=== PATIENT | male | born 1930 | race Caucasian/White ===

== ENCOUNTER 2018-07-01 11:38 | Emergency (ER) | payer OTHER ==
[2018-07-01] MEDS ORDERED: CEPHALEXIN 250 MG CAP ONE (14:14)
[2018-07-01] MEDS ORDERED: SMZ./TMP. 800/160 MG TABLET ONE (14:14)
--- NOTE | 2018-07-01 15:30 | ER ---
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 Transition of care: patient was not received from another setting of care. Onset of symptoms was July 01, 2018. Risk Assessment: Do you want to hurt yourself or someone else? Patient reports no desire to harm self or others. Initial Sepsis Screen: Does the patient meet any 2 criteria? No. Patient's initial sepsis screen is negative. Does the patient have a suspected source of infection? Yes: Skin breakdown/wound. Care prior to arrival: None. 11:59 Method Of Arrival: Wheelchair sg 11:59 Acuity: YUMIKO 3 sg 12:00 Note has a history with for wound care in the past. sg Historical: - Allergies: 12:00 No Known Allergies; sg - PMHx: 11:51 adenocarcinoma of prostate; Alzheimers; Atrial Fib; Diabetes - NIDDM; diverticulosis; sg GERD; Hypercholesterolemia; Hypertension; Myocardial infarction; osteoarthritis; Pneumonia; - PSHx: 11:51 Pacemaker; Heart Bypass; sg - Immunization history:: Adult Immunizations up to date. - Social history:: Smoking status: Patient/guardian denies using tobacco. - Ebola Screening: : Patient negative for fever greater than or equal to 101.5 degrees Fahrenheit, and additional compatible Ebola Virus Disease symptoms Patient denies exposure to infectious person Patient denies travel to an Ebola-affected area in the 21 days before illness onset No symptoms or risks identified at this time. - Family history:: not pertinent. Screenin:00 Abuse screen: Denies threats or abuse. Denies injuries from another. Nutritional ca1 screening: No deficits noted. Tuberculosis screening: No symptoms or risk factors identified. Fall Risk Fall in past 12 months (25 points). Ambulatory Aid- Crutches/Cane/Walker (15 pts). Gait- Weak (10 pts.). Assessment: 13:00 General: Appears in no apparent distress. comfortable, Behavior is calm, cooperative, ca1 appropriate for age. Pain: Denies pain. Neuro: Level of Consciousness is awake, alert, obeys commands, Oriented to person, place, time, situation. Cardiovascular: Heart tones S1 S2 present Capillary refill < 3 seconds Patient's skin is warm and dry. Respiratory: Airway is patent Respiratory effort is even, unlabored, Respiratory pattern is regular, symmetrical, Breath sounds are clear bilaterally. GI: No deficits noted. No signs and/or symptoms were reported involving the gastrointestinal system. : No deficits noted. No signs and/or symptoms were reported regarding the genitourinary system. EENT: No deficits noted. No signs and/or symptoms were reported regarding the EENT system. Derm: Skin is intact, is healthy with good turgor, Skin is pink, warm \T\ dry. Decubitus located on left inner aspect of ankle. approximately 1.5 cm to 2.5 cm is stage II. Musculoskeletal: Circulation, motion, and sensation intact. Capillary refill < 3 seconds, Swelling present in left medial malleolus and left Achilles. 13:55 Reassessment: Patient appears in no apparent distress at this time. Patient and/or ca1 family updated on plan of care and expected duration. Pain level reassessed. Patient is alert, oriented x 3, equal unlabored respirations, skin warm/dry/pink. Pending wound consult. 14:50 Reassessment: Patient appears in no apparent distress at this time. Patient and/or ca1 family updated on plan of care and expected duration. Pain level reassessed. Patient is alert, oriented x 3, equal unlabored respirations, skin warm/dry/pink. 15:10 Reassessment: Wound care personnel at bedside. ca1 16:00 Reassessment: Patient appears in no apparent distress at this time. Patient and/or ca1 family updated on plan of care and expected duration. Pain level reassessed. Patient is alert, oriented x 3, equal unlabored respirations, skin warm/dry/pink. Applied medication to wound. Dressed wound. Pt tolerated procedure well. Vital Signs: 11:58 BP 116 / 68; Pulse 78; Resp 18; Temp 97.6; Pulse Ox 100% on R/A; Weight 88.45 kg; sg Height 6 ft. 0 in. (182.88 cm); Pain 0/10; 13:00 BP 127 / 67; Pulse 77; Resp 18; Pulse Ox 100% on R/A; ca1 13:55 BP 105 / 59; Pulse 81; Resp 19; Pulse Ox 98% on R/A; ca1 14:50 BP 99 / 58; Pulse 69; Resp 19; Pulse Ox 96% on R/A; ca1 16:00 BP 105 / 61; Pulse 71; Resp 19; Pulse Ox 100% on R/A; ca1 11:58 Body Mass Index 26.45 (88.45 kg, 182.88 cm) ED Course: 11:43 Patient arrived in ED. dp 11:43 Hector Bourne MD is Private Physician. dp 11:51 Arm band placed on. sg 12:00 Triage completed. sg 12:52 Stephanie Centeno, RN is Primary Nurse. ca1 13:00 Patient has correct armband on for positive identification. Bed in low position. Call ca1 light in reach. Side rails up X 1. Pulse ox on. NIBP on. Warm blanket given. 13:03 Neo Osei MD is Attending Physician. logan 15:29 Hector Bourne MD is Referral Physician. logan 15:29 Walt Lopez MD is Referral Physician. logan 15:50 Inserted saline lock: 22 gauge in left antecubital area, using aseptic technique. Blood ca1 collected. 16:17 Ankle Left 3 View XRAY In Process Unspecified. EDMS 16:18 No provider procedures requiring assistance completed. IV discontinued, intact, ca1 bleeding controlled, No redness/swelling at site. Pressure dressing applied. Administered Medications: 13:59 Drug: Bactrim (160 mg-800 mg (DS) 1 tablet Route: PO; ca1 16:17 Follow up: Response: No adverse reaction ca1 14:00 Drug: KeFLEX 500 mg Route: PO; ca1 16:17 Follow up: Response: No adverse reaction ca1 16:00 Drug: Santyl 250 unit/g 1 application Route: Topical; Site: wound; ca1 Outcome: 15:29 Discharge ordered by . logan 16:18 Discharged to home via wheelchair, with family. ca1 16:18 Condition: stable 16:18 Discharge instructions given to patient, family, Instructed on discharge instructions, follow up and referral plans. medication usage, wound care, Demonstrated understanding of instructions, follow-up care, medications, Prescriptions given X 3. 16:20 Patient left the ED. ca1 Signatures: Dispatcher [employer] EDMS Rajiv Dudley RN RN sg Neo Osei MD MD cha Acob, Cheryl, RN RN ca1 Pranav Wood Corrections: (The following items were deleted from the chart) 14:24 13:55 BP 125 / 64; Pulse 81bpm; Resp 19bpm; Pulse Ox 98% RA; ca1 ca1
--- NOTE | 2018-07-01 15:30 | EDPHYS ---
Physician Documentation [facility] Name: Cornelius Lazo Age: 88 yrs Sex: Male : 1930 Arrival Date: 07/01/2018 Time: 11:43 Bed 23 Private MD: Hector Bourne ED Physician Neo Osei HPI: 07/01 13:56 This 88 yrs old Male presents to ER via Wheelchair with complaints of Ulcer logan on ankle. 13:56 The patient presents with an abrasion, pain. The complaints affect the left ankle. logan Onset: The symptoms/episode began/occurred 2 day(s) ago. Context: The problem was sustained at home. Associated signs and symptoms: The patient has no apparent associated signs or symptoms. Modifying factors: The symptoms are alleviated by elevation of extremity, the symptoms are aggravated by movement, wearing shoes. The patient has not experienced similar symptoms in the past. Historical: - Allergies: 12:00 No Known Allergies; sg - PMHx: 11:51 adenocarcinoma of prostate; Alzheimers; Atrial Fib; Diabetes - NIDDM; diverticulosis; sg GERD; Hypercholesterolemia; Hypertension; Myocardial infarction; osteoarthritis; Pneumonia; - PSHx: 11:51 Pacemaker; Heart Bypass; sg - Immunization history:: Adult Immunizations up to date. - Social history:: Smoking status: Patient/guardian denies using tobacco. - Ebola Screening: : Patient negative for fever greater than or equal to 101.5 degrees Fahrenheit, and additional compatible Ebola Virus Disease symptoms Patient denies exposure to infectious person Patient denies travel to an Ebola-affected area in the 21 days before illness onset No symptoms or risks identified at this time. - Family history:: not pertinent. ROS: 13:56 Constitutional: Negative for fever, chills, and weight loss, Eyes: Negative for injury, logan pain, redness, and discharge, ENT: Negative for injury, pain, and discharge, Neck: Negative for injury, pain, and swelling, Cardiovascular: Negative for chest pain, palpitations, and edema, Respiratory: Negative for shortness of breath, cough, wheezing, and pleuritic chest pain, Abdomen/GI: Negative for abdominal pain, nausea, vomiting, diarrhea, and constipation, Back: Negative for injury and pain, : Negative for injury, bleeding, discharge, and swelling, Skin: Negative for injury, rash, and discoloration, Neuro: Negative for headache, weakness, numbness, tingling, and seizure, Psych: Negative for depression, anxiety, suicide ideation, homicidal ideation, and hallucinations, Allergy/Immunology: Negative for hives, rash, and allergies, Endocrine: Negative for neck swelling, polydipsia, polyuria, polyphagia, and marked weight changes, Hematologic/Lymphatic: Negative for swollen nodes, abnormal bleeding, and unusual bruising. 13:56 MS/extremity: Positive for pain, swelling, tenderness, of the left medial malleolus. Exam: 13:56 Constitutional: This is a well developed, well nourished patient who is awake, alert, logan and in no acute distress. Head/Face: Normocephalic, atraumatic. Eyes: Pupils equal round and reactive to light, extra-ocular motions intact. Lids and lashes normal. Conjunctiva and sclera are non-icteric and not injected. Cornea within normal limits. Periorbital areas with no swelling, redness, or edema. ENT: Nares patent. No nasal discharge, no septal abnormalities noted. Tympanic membranes are normal and external auditory canals are clear. Oropharynx with no redness, swelling, or masses, exudates, or evidence of obstruction, uvula midline. Mucous membranes moist. Neck: Trachea midline, no thyromegaly or masses palpated, and no cervical lymphadenopathy. Supple, full range of motion without nuchal rigidity, or vertebral point tenderness. No Meningismus. Chest/axilla: Normal chest wall appearance and motion. Nontender with no deformity. No lesions are appreciated. Cardiovascular: Regular rate and rhythm with a normal S1 and S2. No gallops, murmurs, or rubs. Normal PMI, no JVD. No pulse deficits. Respiratory: Lungs have equal breath sounds bilaterally, clear to auscultation and percussion. No rales, rhonchi or wheezes noted. No increased work of breathing, no retractions or nasal flaring. Abdomen/GI: Soft, non-tender, with normal bowel sounds. No distension or tympany. No guarding or rebound. No evidence of tenderness throughout. Back: No spinal tenderness. No costovertebral tenderness. Full range of motion. Male : Normal genitalia with no discharge or lesions. MS/ Extremity: Pulses equal, no cyanosis. Neurovascular intact. Full, normal range of motion. Neuro: Awake and alert, GCS 15, oriented to person, place, time, and situation. Cranial nerves II-XII grossly intact. Motor strength 5/5 in all extremities. Sensory grossly intact. Cerebellar exam normal. Normal gait. Psych: Awake, alert, with orientation to person, place and time. Behavior, mood, and affect are within normal limits. 13:56 Skin: cellulitis, that is mild, injury, abrasion(s), small abrasion noted. Vital Signs: 11:58 BP 116 / 68; Pulse 78; Resp 18; Temp 97.6; Pulse Ox 100% on R/A; Weight 88.45 kg; sg Height 6 ft. 0 in. (182.88 cm); Pain 0/10; 13:00 BP 127 / 67; Pulse 77; Resp 18; Pulse Ox 100% on R/A; ca1 13:55 BP 105 / 59; Pulse 81; Resp 19; Pulse Ox 98% on R/A; ca1 14:50 BP 99 / 58; Pulse 69; Resp 19; Pulse Ox 96% on R/A; ca1 16:00 BP 105 / 61; Pulse 71; Resp 19; Pulse Ox 100% on R/A; ca1 11:58 Body Mass Index 26.45 (88.45 kg, 182.88 cm) sg MDM: 13:03 Patient medically screened. [facility] 13:59 Data reviewed: vital signs, nurses notes, lab test result(s). [facility] 07/01 13:55 Order name: Glucose, Ancillary Testing [facility] 07/01 15:28 Order name: CBC with Diff [facility] 07/01 15:28 Order name: Comprehensive Metabolic Panel [facility] 07/01 15:28 Order name: Sed Rate [facility] 07/01 15:28 Order name: Ankle Left 3 View XRAY [facility] 07/01 13:55 Order name: Blood Glucose Level; Complete Time: 13:58 [facility] 07/01 13:55 Order name: Wound dressing: wound care to do; Complete Time: 16:17 [facility] 07/01 13:56 Order name: [facility] EDMS Administered Medications: 13:59 Drug: Bactrim (160 mg-800 mg (DS) 1 tablet Route: PO; ca1 16:17 Follow up: Response: No adverse reaction ca1 14:00 Drug: KeFLEX 500 mg Route: PO; ca1 16:17 Follow up: Response: No adverse reaction ca1 16:00 Drug: Santyl 250 unit/g 1 application Route: Topical; Site: wound; ca1 Disposition: 07/01/18 15:29 Discharged to Home. Impression: Non-pressure chronic ulcer of skin of other sites - left medial ankle, Type 2 diabetes mellitus. - Condition is Stable. - Discharge Instructions: Cellulitis, Adult, Type 2 Diabetes Mellitus, Diagnosis, Adult, Venous Ulcer, Cellulitis, Adult, [id number], Type 2 Diabetes Mellitus, Diagnosis, Adult, Muba-yo-Hdsj, Venous Ulcer, Flem-kf-Rqwf. - Prescriptions for Keflex 500 mg Oral Capsule - take 1 capsule by ORAL route every 6 hours for 10 days; 40 capsule. Bactrim DS 800- 160 mg Oral Tablet - take 1 tablet by ORAL route every 12 hours for 10 days; 20 tablet. Santyl 250 unit/gram Topical ointment - apply 1 application by TOPICAL route once daily; 90 gram. - Medication Reconciliation Form, Thank You Letter, Antibiotic Education, Prescription Opioid Use form. - Follow up: Hector Bourne; When: 2 - 3 days; Reason: Recheck today's complaints, Continuance of care, Re-evaluation by your physician. Follow up: Walt Lopez MD; When: 2 - 3 days; Reason: Recheck today's complaints, Continuance of care, Re-evaluation by your physician. - Problem is new. - Symptoms have improved. Signatures: Dispatcher [employer] EDRajiv Justice RN RN Neo Soto MD MD cha Acob, Cheryl, RN RN ca1 Corrections: (The following items were deleted from the chart) 15:29 15:29 07/01/2018 15:29 Discharged to Home. Impression: Non-pressure chronic ulcer of logan skin of other sites - left medial ankle; Type 2 diabetes mellitus. Condition is Stable. Discharge Instructions: Cellulitis, Adult, Type 2 Diabetes Mellitus, Diagnosis, Adult, Venous Ulcer, Cellulitis, Adult, Xsvb-[id number]-Mbzw, Type 2 Diabetes Mellitus, Diagnosis, Adult, Cdnk-kx-Xvge, Venous Ulcer, Znja-kw-Jxij. Prescriptions for Keflex 500 mg Oral Capsule - take 1 capsule by ORAL route every 6 hours for 10 days; 40 capsule, Bactrim DS 800-160 mg Oral Tablet - take 1 tablet by ORAL route every 12 hours for 10 days; 20 tablet. and Forms are Medication Reconciliation Form, Thank You Letter, Antibiotic Education, Prescription Opioid Use. Follow up: Hector Bourne; When: 2 - 3 days; Reason: Recheck today's complaints, Continuance of care, Re-evaluation by your physician. Problem is new. Symptoms have improved. [facility] 15:30 15:29 HEMOGLOBIN A1C+CHEM A1C.LAB.BRZ ordered. [facility] 16:20 15:29 07/01/2018 15:29 Discharged to Home. Impression: Non-pressure chronic ulcer of ca1 skin of other sites - left medial ankle; Type 2 diabetes mellitus. Condition is Stable. Discharge Instructions: Cellulitis, Adult, Type 2 Diabetes Mellitus, Diagnosis, Adult, Venous Ulcer, Cellulitis, Adult, Hycf-cd-Kzlw, Type 2 Diabetes Mellitus, Diagnosis, Adult, Yeav-pu-Ebpq, Venous Ulcer, Rjae-hm-Gvsf. Prescriptions for Keflex 500 mg Oral Capsule - take 1 capsule by ORAL route every 6 hours for 10 days; 40 capsule, Bactrim DS 800-160 mg Oral Tablet - take 1 tablet by ORAL route every 12 hours for 10 days; 20 tablet. and Forms are Medication Reconciliation Form, Thank You Letter, Antibiotic Education, Prescription Opioid Use. Follow up: Hector Bourne; When: 2 - 3 days; Reason: Recheck today's complaints, Continuance of care, Re-evaluation by your physician. Follow up: Walt Lopez; When: 2 - 3 days; Reason: Recheck today's complaints, Continuance of care, Re-evaluation by your physician. Problem is new. Symptoms have improved. [facility]
[2018-07-01] MEDS ORDERED: COLLAGENASE 30 GM OINTMENT TOP ONE (15:45)
[2018-07-01 16:05] LABS: Absolute Lymphocytes (CBC) 2.3 K/uL (0.7-4.9); Absolute Monocytes 0.7 K/uL (0.1-1.3); Absolute Neutrophil 5.7 K/uL (1.8-8.0); Basophils % 0.9 % (0-1.3); Eosinophils % 3.1 % (0-4.4); Hematocrit 38.9 % (39.6-49.0); Lymphocytes % 25.1 % (15.3-44.8); MPV 10.2 fL (7.6-11.3); Monocytes % 7.9 % (3.3-12.3); RBC Red Blood Cell Count 4.22 M/uL (4.33-5.43)
[2018-07-01 16:28] LABS: Albumin 3.5 g/dL (3.4-5.0); Bilirubin Total 0.2 mg/dL (0.2-1.0); Potassium 4.5 mmol/L (3.5-5.1)
--- NOTE | 2018-07-01 16:32 | RAD REPORT ---
EXAM DESCRIPTION: RAD - Ankle Left 3 View - 07/01/2018 4:17 pm CLINICAL HISTORY: Ankle wound, soft tissue swelling and redness COMPARISON: None. FINDINGS: Ankle joint prosthesis is present at the tibiotalar joint space. Bone screws are present i n the distal tibia and fibula from prior fracture repair. The bone screws have fractured. There is an overall osteopenic or bone loss change to the distal tibia. There is substantial thinning and very l ikely disruption of the posterior cortex of the distal tibia. A soft tissue mass density is evident p osterior to the distal tibia and tibia 0 talar joint space. Calcifications are present along the rim of this mass. Osteopenic or lucent changes are present in the anterior calcaneus. Talocalcaneal joint space is effaced and probably fused. No air or foreign body in the soft tissues. IMPRESSION: Bone loss changes in the distal tibia with soft tissue mass posterior margin of the tibi a and tibiotalar joint space. Fractured bone screws from remote tibiofibular repair. Tibiotalar joint prosthesis in place. Osteomyelitis is suspected. There are no comparison studies available to evaluate the extensive posts urgical and degenerative changes at the ankle joint.
[2018-07-01 17:29] VITALS: TEMP 97.6
[2018-07-01 17:40] VITALS: BP 105/61; O2SAT 100
== END 2018-07-01 16:20 | disposition home or self-care (01) ==
LOC: ER 11:38
DX: L97.328 Non-pressure chronic ulcer of left ankle with other specified severity (principal); E11.9 Type 2 diabetes mellitus without complications
CPT/HCPCS: 36415; 80053; 82962; 85025; 85652; 99284; J3590

== ENCOUNTER 2018-08-27 11:00 | Inpatient (IN) | payer OTHER ==
[2018-08-27] MEDS ORDERED: GLUCAGON 1 MG/VIAL IM PRN (11:16)
[2018-08-27] MEDS ORDERED: D50W 25 GM/50 ML SYRINGE IV PRN (11:16)
[2018-08-27 11:58] LABS: Absolute Lymphocytes (CBC) 1.6 K/uL (0.7-4.9); Absolute Monocytes 0.7 K/uL (0.1-1.3); Absolute Neutrophil 5.6 K/uL (1.8-8.0); Basophils % 0.6 % (0-1.3); Eosinophils % 3.1 % (0-4.4); Hematocrit 37.6 % (39.6-49.0); Lymphocytes % 19.7 % (15.3-44.8); MPV 10.8 fL (7.6-11.3); Monocytes % 8.7 % (3.3-12.3); RBC Red Blood Cell Count 4.03 M/uL (4.33-5.43)
[2018-08-27 12:17] LABS: Magnesium 2.3 mg/dL (1.8-2.4); Potassium 4.3 mmol/L (3.5-5.1)
[2018-08-27 12:24] VITALS: BMI 29.7
[2018-08-27] MEDS: INSULIN -REGULAR HUMAN 50 UNIT/0.5 ML ML SQ SCH ×3 (12:32→21:00)
[2018-08-27] MEDS: Meropenem 1,000 MG in NA CHLORIDE 0.9% 100 ML IV SCH ×2 (12:45→21:31)
[2018-08-27] MEDS ORDERED: TIZANIDINE 4 MG TABLET PO PRN (19:07)
[2018-08-27] MEDS ORDERED: LACTULOSE 20 GM/30 ML UCUP PO PRN (19:07)
[2018-08-27] MEDS ORDERED: guaiFENesin 100 MG/5 ML UCUP PO PRN (19:07)
[2018-08-27] MEDS ORDERED: NITROGLYCERIN 0.4 MG/TAB SL SCH (20:00)
[2018-08-27] MEDS ORDERED: Meropenem 1000 MG/VIAL IV SCH (21:00)
[2018-08-27] MEDS: HOME MED 1 EA UNK (Cyclosporine [Restasis] 1 GTT) EACH EYE SCH (21:00)
[2018-08-27] MEDS: BISACODYL E.C. 5 MG TAB PO SCH (21:30)
[2018-08-27] MEDS: ATORVASTATIN 40 MG TAB PO SCH (21:30)
[2018-08-27] MEDS: METOPROLOL TAR 25 MG TAB PO SCH (21:30)
[2018-08-27] MEDS: DOCUSATE NA/SENNA CONC 1 TAB PO SCH (21:30)
[2018-08-27] MEDS: RANITIDINE 150 MG TABLET PO SCH (21:30)
--- NOTE | 2018-08-28 05:02 | HP ---
Date of Admission: 08/27/2018 Chief Complaint: Urinary tract infection. History Of Present Illness: This is an 88-year-old male patient who had outpatient blood work and ur ine test done this week. Urine test was done 2 days ago and urinalysis was abnormal consistent with urinary tract infection and urine culture result came back today growing E. coli and it is ESBL. The patient's daughter was contacted with this information and the patient was advised to be admitted to the hospital. Arrangements were made for day after admission to the hospital and the patient was ad mitted for IV antibiotics. I saw him this evening. His and daughter were present in room with him. Denies any fever, chills, nausea, vomiting. He has frequent urination problem and has trouble controlling his bladder. No blood in the urine. Allergies: TO MORPHINE. Medications: List reviewed. Review of Systems: Genitourinary: As mentioned above. All other systems reviewed and negative. Past Medical History: Type 2 diabetes mellitus, uncontrolled; chronic kidney disease; chronic systol ic congestive heart failure; coronary artery disease; hypertension; hyperlipidemia; chronic anticoagu lation therapy; prostate cancer; paroxysmal atrial fibrillation; gastroesophageal reflux disease; Alz heimer disease; osteoarthritis at multiple sites. Past Surgical History: Pacemaker placement on November 29, 2015. In the past, he had coronary artery bypass surgery in 2001, penile implant in 1984 after a radical prostatectomy done in 1983, hernia rep air in 1975. Had surgery for left forearm fracture and surgery for left ankle fracture and right kaycee mb surgery. Family History: Significant for colon cancer, coronary artery disease. Social History: Negative for smoking and alcohol use. Physical Examination: Vital Signs: Temperature 97, pulse 69, respiratory rate 18, blood pressure 122/57, oxygen saturation 98%. Height 6 feet 3 inches, weight 238 pounds. General: Awake, alert, oriented, not in distress. HEENT: Head atraumatic, normocephalic. Conjunctivae nonerythematous. Sclerae white. Mouth, no thr ush or edema noted. Ears/Nose, no mass, lesion, discharge noted. Neck: Supple. No JVD, lymph nodes, bruit, thyromegaly noted. Lungs: Bilateral good equal air entry. Clear to auscultation. No rhonchi. No rales. Heart: Normal heart sounds, no murmur or gallop. Abdomen: Soft, bowel sounds normal. No guarding, rigidity, tenderness, mass, hepatosplenomegaly, dis tention, or bruit noted. Extremities: No leg edema. No calf tenderness. Skin: No rash, ulcer, cellulitis. Lymphatics: No lymph node enlargement in neck, supraclavicular, infraclavicular region. Neuro: No focal neurological deficit. Chest: Unremarkable. External Genitalia: Deferred. Rectal: Deferred. Laboratory Data: White count 8.2, hemoglobin 12.4, platelets 211. Sodium 137, potassium 4.3, chlori de 105, bicarb 29, BUN 28, creatinine 1.67, glucose 259. Procalcitonin less than 0.05. Urine cultur e growing E. coli ESBL and Enterococcus faecalis, this is from 08/25/2018 and urinalysis from the shows positive for nitrite, esterase 3+, wbc's TNTC, bacteria loaded. Impression: 1.Urinary tract infection, organism Escherichia coli, extended-spectrum beta-lactamase. 2.Coronary artery disease. 3.Chronic systolic congestive heart failure. 4.Diabetes mellitus. 5.Hypertension. 6.Hyperlipidemia. 7.Paroxysmal atrial fibrillation. 8.Chronic kidney disease, stage 3. 9.Alzheimer disease. 10.Osteoarthritis, multiple sites. 11.Prostate cancer. Plan: Admit the patient to hospital for further evaluation and management of this problem. The edd ent is appropriate for inpatient and is expected to spend 2 midnights in hospital. Home medications will be continued per order. We will order PICC line and IV antibiotic. Meropenem was started. Pha rmacy to make adjustment on dose depending on the patient's renal function. Social Service was consu lted to help make arrangements for patient to receive 10 days of IV meropenem upon discharge [facility]. Possible length of stay 4 days and details were discussed with the patient and the p rené's family member. I will see him tomorrow for followup. Physical Therapy to help ambulate the patient. SANTIAGO/MODL Voice ID: [id number]
[2018-08-28] MEDS: PANTOPRAZOLE 40MG TABLET PO SCH (05:52)
[2018-08-28] MEDS: BIFIDOBACTERIUM INFANTIS 4 MG PO SCH (07:07)
[2018-08-28] MEDS: HOME MED 1 EA UNK (Mirabegron [Myrbetriq] 25 MG) PO SCH (07:07)
[2018-08-28] MEDS: HOME MED 1 EA UNK (Cyclosporine [Restasis] 1 GTT) EACH EYE SCH ×2 (07:07→20:34)
[2018-08-28] MEDS: INSULIN -REGULAR HUMAN 50 UNIT/0.5 ML ML SQ SCH ×4 (07:30→20:32)
[2018-08-28] MEDS: GLIMEPIRIDE 2 MG TABLET PO SCH ×2 (08:27→17:54)
[2018-08-28] MEDS: Meropenem 1,000 MG in NA CHLORIDE 0.9% 100 ML IV SCH ×2 (08:27→20:32)
[2018-08-28] MEDS: POTASSIUM CL SA 10 MEQ TAB PO SCH (08:28)
[2018-08-28] MEDS: METOPROLOL TAR 25 MG TAB PO SCH ×2 (08:28→21:00)
[2018-08-28] MEDS: DOCUSATE NA/SENNA CONC 1 TAB PO SCH ×2 (08:28→20:33)
[2018-08-28] MEDS: BISACODYL E.C. 5 MG TAB PO SCH ×2 (08:28→20:33)
[2018-08-28] MEDS: SOLIFENACIN SUCCIN 5 MG TAB PO SCH (08:28)
[2018-08-28] MEDS: FUROSEMIDE 40 MG TABLET PO SCH (08:28)
[2018-08-28] MEDS: ASCORBIC ACID 500 MG TABLET PO SCH (08:28)
[2018-08-28] MEDS: LISINOPRIL 5 MG TAB PO SCH (08:29)
[2018-08-28] MEDS ORDERED: RIVAROXABAN 10 MG TABLET PO SCH (09:00)
[2018-08-28] MEDS: RIVASTIGMINE 9.5 MG/24 HR PATCH TD SCH (10:19)
[2018-08-28] MEDS: COLLAGENASE 30 GM OINTMENT TOP SCH (10:20)
--- NOTE | 2018-08-28 17:47 | PN ---
Date of Progress Note: 08/28/2018 Subjective: The patient was seen this morning for followup. No new complaints, problems reported by him. Objective: Vital Signs: Reviewed. HEENT: Unremarkable. Lungs: Clear to auscultation. Heart: Sounds normal. Abdomen: Soft. Bowel sounds normal. No guarding, rigidity, tenderness, distention. Extremities: No leg edema. Laboratory Data: Fingerstick blood sugar readings reviewed. Last blood glucose this morning was 185 . Impression: 1.Urinary tract infection, organism Escherichia coli, extended spectrum beta-lactamase. 2.Type 2 diabetes mellitus .. 3.Chronic kidney disease, stage 3. 4.Chronic systolic congestive heart failure. Plan: We will go ahead and restart his glimepiride but at a lower dose. He takes 2 mg twice a day i nstead of at 1 mg twice a day. Considering his renal function, we will not give any metformin at thi s point. Sliding-scale insulin will be continued. We will continue meropenem and hopefully patient will have a PICC line today once the PICC line nurse is available. SANTIAGO/MODL Voice ID: [id number] Report ID: [id number]
[2018-08-28] MEDS: RANITIDINE 150 MG TABLET PO SCH (20:33)
[2018-08-28] MEDS: ATORVASTATIN 40 MG TAB PO SCH (20:33)
[2018-08-29] MEDS: PANTOPRAZOLE 40MG TABLET PO SCH (05:44)
[2018-08-29 06:05] LABS: Absolute Lymphocytes (CBC) 1.8 K/uL (0.7-4.9); Absolute Monocytes 0.7 K/uL (0.1-1.3); Absolute Neutrophil 5.3 K/uL (1.8-8.0); Basophils % 0.4 % (0-1.3); Hematocrit 37.2 % (39.6-49.0); Lymphocytes % 22.6 % (15.3-44.8); MPV 10.9 fL (7.6-11.3); Monocytes % 8.7 % (3.3-12.3); RBC Red Blood Cell Count 4.04 M/uL (4.33-5.43)
[2018-08-29 06:08] LABS: Magnesium 2.2 mg/dL (1.8-2.4)
[2018-08-29] MEDS: INSULIN -REGULAR HUMAN 50 UNIT/0.5 ML ML SQ SCH ×4 (07:30→21:45)
[2018-08-29] MEDS: GLIMEPIRIDE 2 MG TABLET PO SCH ×2 (08:00→16:51)
[2018-08-29] MEDS: HOME MED 1 EA UNK (Cyclosporine [Restasis] 1 GTT) EACH EYE SCH ×2 (09:00→21:00)
[2018-08-29] MEDS: BIFIDOBACTERIUM INFANTIS 4 MG PO SCH (09:00)
[2018-08-29] MEDS: RIVASTIGMINE 9.5 MG/24 HR PATCH TD SCH (09:00)
[2018-08-29] MEDS: HOME MED 1 EA UNK (Mirabegron [Myrbetriq] 25 MG) PO SCH (09:00)
[2018-08-29] MEDS: Meropenem 1,000 MG in NA CHLORIDE 0.9% 100 ML IV SCH ×2 (09:38→21:00)
[2018-08-29] MEDS: COLLAGENASE 30 GM OINTMENT TOP SCH (09:38)
[2018-08-29] MEDS: FUROSEMIDE 40 MG TABLET PO SCH (09:39)
[2018-08-29] MEDS: NYSTATIN 100MU/GM CREAM 15GM TOP PRN (09:39)
[2018-08-29] MEDS: SOLIFENACIN SUCCIN 5 MG TAB PO SCH (09:40)
[2018-08-29] MEDS: METOPROLOL TAR 25 MG TAB PO SCH ×2 (09:40→21:43)
[2018-08-29] MEDS: POTASSIUM CL SA 10 MEQ TAB PO SCH (09:40)
[2018-08-29] MEDS: BISACODYL E.C. 5 MG TAB PO SCH ×2 (09:41→21:43)
[2018-08-29] MEDS: LISINOPRIL 5 MG TAB PO SCH (09:42)
[2018-08-29] MEDS: RIVAROXABAN 20 MG TABLET PO SCH (09:42)
[2018-08-29] MEDS: DOCUSATE NA/SENNA CONC 1 TAB PO SCH ×2 (09:42→21:42)
[2018-08-29] MEDS: ASCORBIC ACID 500 MG TABLET PO SCH (09:43)
--- NOTE | 2018-08-29 13:37 | PN ---
Date of Progress Note: 08/29/2018 Subjective: The patient was seen this morning for followup. His daughter was present with him at [facility]. He is ambulating well with physical therapy. No new complaints or problems reported. Objective: Vital Signs: Reviewed. HEENT: Examination unremarkable. Lungs: Clear to auscultation. No rhonchi. No rales. Heart: Sounds normal. Abdomen: Soft, bowel sounds normal. No guarding, rigidity, tenderness, or distention. Extremities: No leg edema. Left lower leg dressing present. No evidence of any blood stained disch arge on it. Laboratory Data: White count 8.1, hemoglobin 12.7, platelets 211. Sodium 141, potassium 4, chloride 107, bicarb 28, BUN 29, creatinine 1.35, and glucose 185. Urine culture is growing E. coli and Ente rococcus faecalis. Culture results collected on an outpatient basis 2 days prior to admission. Impression: 1.Urinary tract infection, Escherichia coli, extended-spectrum beta-lactamases and Enterococcus faec alberto. 2.Chronic systolic congestive heart failure. 3.Chronic kidney disease, stage III. 4.Diabetes mellitus. Plan: The patient's renal function is better. Upon further questioning today and talking to patient and his daughter, it appears that the patient only drinks about maybe 15-16 ounces of water a day an d I asked him to drink about 30 ounces of water a day. His renal function is better today. Fingerst ick blood sugar readings reviewed. We will go ahead and increase the dose of glimepiride from 1 mg t wice a day to 2 mg twice a day which is his home medication dose. Depending on his fingerstick blood sugar readings, we will decide if we need to restart metformin in a day or 2 days or not. Meanwhile , physical therapy to continue to work with the patient. Continue meropenem as ordered and add ampic illin 500 mg 3 times a day to cover second bacteria causing urinary tract infection. Social Service is trying to assist the patient to go to snf facility as the patient will not be able to return back to [facility] as they do not accept patient with IV antibiotics at that facility. SANTIAGO/MODL Voice ID: [id number] Report ID: [id number]
[2018-08-29] MEDS ORDERED: AMPICILLIN TRIHYDRATE 250 MG CAP PO SCH (14:00)
[2018-08-29] MEDS: AMPICILLIN TRIHYDRATE 500 MG CAP PO SCH ×2 (14:37→21:42)
[2018-08-29] MEDS: RANITIDINE 150 MG TABLET PO SCH (21:42)
[2018-08-29] MEDS: ATORVASTATIN 40 MG TAB PO SCH (21:44)
[2018-08-30] MEDS: PANTOPRAZOLE 40MG TABLET PO SCH (05:57)
[2018-08-30] MEDS: INSULIN -REGULAR HUMAN 50 UNIT/0.5 ML ML SQ SCH ×4 (07:30→20:42)
[2018-08-30] MEDS: HOME MED 1 EA UNK (Mirabegron [Myrbetriq] 25 MG) PO SCH (07:39)
[2018-08-30] MEDS: HOME MED 1 EA UNK (Cyclosporine [Restasis] 1 GTT) EACH EYE SCH ×2 (07:40→20:44)
[2018-08-30] MEDS: BIFIDOBACTERIUM INFANTIS 4 MG PO SCH (07:40)
[2018-08-30] MEDS: DOCUSATE NA/SENNA CONC 1 TAB PO SCH ×2 (09:23→20:43)
[2018-08-30] MEDS: GLIMEPIRIDE 2 MG TABLET PO SCH ×2 (09:24→17:19)
[2018-08-30] MEDS: SOLIFENACIN SUCCIN 5 MG TAB PO SCH (09:24)
[2018-08-30] MEDS: METOPROLOL TAR 25 MG TAB PO SCH ×2 (09:25→20:43)
[2018-08-30] MEDS: AMPICILLIN TRIHYDRATE 500 MG CAP PO SCH ×3 (09:26→20:43)
[2018-08-30] MEDS: RIVAROXABAN 20 MG TABLET PO SCH (09:26)
[2018-08-30] MEDS: POTASSIUM CL SA 10 MEQ TAB PO SCH (09:26)
[2018-08-30] MEDS: FUROSEMIDE 40 MG TABLET PO SCH (09:26)
[2018-08-30] MEDS: ASCORBIC ACID 500 MG TABLET PO SCH (09:27)
[2018-08-30] MEDS: LISINOPRIL 5 MG TAB PO SCH (09:27)
[2018-08-30] MEDS: Meropenem 1,000 MG in NA CHLORIDE 0.9% 100 ML IV SCH ×2 (09:28→20:42)
[2018-08-30] MEDS: BISACODYL E.C. 5 MG TAB PO SCH ×2 (09:28→20:43)
[2018-08-30] MEDS: RIVASTIGMINE 9.5 MG/24 HR PATCH TD SCH (09:29)
[2018-08-30] MEDS: COLLAGENASE 30 GM OINTMENT TOP SCH (09:30)
--- NOTE | 2018-08-30 13:50 | PN ---
Date of Progress Note: 08/30/2018 Subjective: The patient was seen this morning for followup. He was lying in bed. No new complaints or problems reported by him. No abdominal pain. No diarrhea. No shortness of breath. Objective: Vital Signs: Reviewed. HEENT: Examination unremarkable. Lungs: Clear to auscultation. Heart: Sounds normal. Abdomen: Soft. Bowel sounds normal. No guarding, rigidity, tenderness, or distention. Extremities: No leg edema. Impression: 1.Urinary tract infection, organism Escherichia coli, ESBL. 2.Chronic systolic congestive heart failure. 3.Type 2 diabetes mellitus. 4.Chronic kidney disease, stage 3. Plan: We will continue current medications, antibiotics per order. We will go ahead and repeat Flutter work tomorrow morning. The patient does have a PICC line in the right upper extremity and we will wait for the social service to rather make arrangements for detention facility placement. Once that is arranged, the patient will be discharged to go to such facility. SANTIAGO/MODL Voice ID: [id number] Report ID: [id number]
[2018-08-30] MEDS: RANITIDINE 150 MG TABLET PO SCH (20:43)
[2018-08-30] MEDS: ATORVASTATIN 40 MG TAB PO SCH (20:43)
[2018-08-31] MEDS: PANTOPRAZOLE 40MG TABLET PO SCH (06:01)
[2018-08-31] MEDS: INSULIN -REGULAR HUMAN 50 UNIT/0.5 ML ML SQ SCH ×4 (07:30→20:24)
[2018-08-31] MEDS: RIVASTIGMINE 9.5 MG/24 HR PATCH TD SCH (09:00)
[2018-08-31] MEDS: BIFIDOBACTERIUM INFANTIS 4 MG PO SCH (09:00)
[2018-08-31] MEDS: HOME MED 1 EA UNK (Cyclosporine [Restasis] 1 GTT) EACH EYE SCH ×2 (09:00→20:25)
[2018-08-31] MEDS: HOME MED 1 EA UNK (Mirabegron [Myrbetriq] 25 MG) PO SCH (09:00)
[2018-08-31] MEDS: COLLAGENASE 30 GM OINTMENT TOP SCH (09:00)
[2018-08-31] MEDS: AMPICILLIN TRIHYDRATE 500 MG CAP PO SCH ×3 (09:05→22:11)
[2018-08-31] MEDS: LISINOPRIL 5 MG TAB PO SCH (09:05)
[2018-08-31] MEDS: METOPROLOL TAR 25 MG TAB PO SCH ×2 (09:05→22:11)
[2018-08-31] MEDS: ASCORBIC ACID 500 MG TABLET PO SCH (09:05)
[2018-08-31] MEDS: RIVAROXABAN 20 MG TABLET PO SCH (09:06)
[2018-08-31] MEDS: DOCUSATE NA/SENNA CONC 1 TAB PO SCH ×2 (09:06→22:12)
[2018-08-31] MEDS: FUROSEMIDE 40 MG TABLET PO SCH (09:06)
[2018-08-31] MEDS: SOLIFENACIN SUCCIN 5 MG TAB PO SCH (09:06)
[2018-08-31] MEDS: POTASSIUM CL SA 10 MEQ TAB PO SCH (09:06)
[2018-08-31] MEDS: BISACODYL E.C. 5 MG TAB PO SCH ×2 (09:06→22:11)
[2018-08-31] MEDS: Meropenem 1,000 MG in NA CHLORIDE 0.9% 100 ML IV SCH ×2 (09:07→22:11)
[2018-08-31] MEDS: GLIMEPIRIDE 2 MG TABLET PO SCH ×2 (09:12→17:21)
--- NOTE | 2018-08-31 10:58 | RAD REPORT ---
EXAM DESCRIPTION: Chest Single View CLINICAL HISTORY: 88 years Male, S/P PICC insertion COMPARISON: None. FINDINGS: The heart is normal in size and shape. There is atherosclerosis of the thoracic aorta. Poststernotomy changes are identified. There is a single lead left-sided transvenous pacemaker. There is a right-sided PICC line identified with the distal tip in the superior vena cava. The lung contreras are clear of active infiltrates. The pulmonary vascularity is unremarkable. No active pleural disease is present. There is moderate elevation right hemidiaphragm. IMPRESSION: 1. Successful placement of right-sided PICC line. 2. No active infiltrates. 3. Atherosclerotic disease. Electronically signed by: Yousuf Amezcua MD 08/28/2018 10:48 PM CDT Due to temporary technical issues with the PACS/Fluency reporting system, reports are being signed by the in house radiologist as a courtesy to ensure prompt reporting. The interpreting radiologist is f ully responsible for the content of the report.
[2018-08-31] MEDS: ATORVASTATIN 40 MG TAB PO SCH (22:12)
[2018-08-31] MEDS: RANITIDINE 150 MG TABLET PO SCH (22:12)
--- NOTE | 2018-09-01 00:54 | PN ---
Date of Progress Note: 08/31/2018 Subjective: The patient was seen this morning for followup. He was lying in bed, not in distress. Objective: Vital Signs: Reviewed. HEENT: Unremarkable. Lungs: Clear to auscultation. Heart: Sounds normal. Abdomen: Soft. Bowel sounds normal. No guarding, rigidity, tenderness, distention. Extremities: No leg edema. Impression: 1.Urinary tract infection, organism E. coli, ESBL. 2.Chronic kidney disease, stage 3. 3.Diabetes mellitus. 4.Congestive heart failure, chronic, systolic. Plan: We will continue current medications. Continue current anticoagulation medication including X arelto. Continue current antibiotics. Social Service is arranging for the patient to go to custodial facility. Once arrangements completed, we will be able to discharge the patient to go to suc h facility. SANTIAGO/MODL Voice ID: [id number] Report ID: [id number]
[2018-09-01] MEDS: PANTOPRAZOLE 40MG TABLET PO SCH (05:52)
[2018-09-01 06:14] LABS: Absolute Lymphocytes (CBC) 1.6 K/uL (0.7-4.9); Absolute Monocytes 0.8 K/uL (0.1-1.3); Absolute Neutrophil 6.6 K/uL (1.8-8.0); Basophils % 0.6 % (0-1.3); Eosinophils % 2.6 % (0-4.4); Hematocrit 37.9 % (39.6-49.0); Lymphocytes % 17.2 % (15.3-44.8); MPV 10.4 fL (7.6-11.3); Monocytes % 9.1 % (3.3-12.3); RBC Red Blood Cell Count 4.07 M/uL (4.33-5.43)
[2018-09-01 06:27] LABS: Magnesium 2.4 mg/dL (1.8-2.4); Potassium 3.9 mmol/L (3.5-5.1)
[2018-09-01] MEDS: INSULIN -REGULAR HUMAN 50 UNIT/0.5 ML ML SQ SCH ×4 (07:30→20:39)
[2018-09-01] MEDS: HOME MED 1 EA UNK (Mirabegron [Myrbetriq] 25 MG) PO SCH (08:38)
[2018-09-01] MEDS: HOME MED 1 EA UNK (Cyclosporine [Restasis] 1 GTT) EACH EYE SCH ×2 (08:38→20:38)
[2018-09-01] MEDS: LISINOPRIL 5 MG TAB PO SCH (08:39)
[2018-09-01] MEDS: BIFIDOBACTERIUM INFANTIS 4 MG PO SCH (09:00)
[2018-09-01] MEDS ORDERED: POTASSIUM CL SA 10 MEQ TAB PO ONE (09:00)
[2018-09-01] MEDS: FUROSEMIDE 40 MG TABLET PO SCH (09:00)
[2018-09-01] MEDS: METOPROLOL TAR 25 MG TAB PO SCH ×2 (09:00→21:48)
[2018-09-01] MEDS: Meropenem 1,000 MG in NA CHLORIDE 0.9% 100 ML IV SCH ×2 (09:01→21:47)
[2018-09-01] MEDS: ASCORBIC ACID 500 MG TABLET PO SCH (09:01)
[2018-09-01] MEDS: DOCUSATE NA/SENNA CONC 1 TAB PO SCH ×2 (09:02→21:00)
[2018-09-01] MEDS: SOLIFENACIN SUCCIN 5 MG TAB PO SCH (09:02)
[2018-09-01] MEDS: BISACODYL E.C. 5 MG TAB PO SCH ×2 (09:02→21:48)
[2018-09-01] MEDS: GLIMEPIRIDE 2 MG TABLET PO SCH ×2 (09:02→16:05)
[2018-09-01] MEDS: AMPICILLIN TRIHYDRATE 500 MG CAP PO SCH ×3 (09:02→21:47)
[2018-09-01] MEDS: RIVASTIGMINE 9.5 MG/24 HR PATCH TD SCH (09:03)
[2018-09-01] MEDS: POTASSIUM CL SA 10 MEQ TAB PO SCH (09:04)
[2018-09-01] MEDS: COLLAGENASE 30 GM OINTMENT TOP SCH (09:05)
[2018-09-01] MEDS: RIVAROXABAN 20 MG TABLET PO SCH (09:06)
[2018-09-01] MEDS: NYSTATIN 100MU/GM CREAM 15GM TOP PRN (09:06)
[2018-09-01] MEDS: RANITIDINE 150 MG TABLET PO SCH (21:48)
[2018-09-01] MEDS: ATORVASTATIN 40 MG TAB PO SCH (21:57)
--- NOTE | 2018-09-01 23:46 | PN ---
Date of Progress Note: 09/01/2018 Subjective: The patient was seen this morning for followup. No new complaints, problems reported by the patient, lying in bed, not in distress. Objective: Vital Signs: Reviewed. HEENT: Unremarkable. Lungs: Clear to auscultation. Heart: Sounds normal. Abdomen: Soft. Bowel sounds normal. No guarding, rigidity, tenderness, distention. Extremities: No leg edema. Laboratory Data: White count 9.4, hemoglobin 12.5, platelets 195. Sodium 144, potassium 3.9, chlori de 111, bicarb 28, BUN 32, creatinine 1.41, glucose 161. Impression: 1.Urinary tract infection. 2.Diabetes mellitus. 3.Chronic kidney disease, stage 3. 4.Chronic systolic congestive heart failure. Plan: We will continue current medications, antibiotics per order. We are waiting for arrangements to be completed for the patient to go to shelter facility. Once that arrangement is complete d, the patient will be discharged to go to such facility. SANTIAGO/MODL Voice ID: [id number] Report ID: [id number]
[2018-09-02 04:33] LABS: Potassium 4.2 mmol/L (3.5-5.1)
[2018-09-02] MEDS: PANTOPRAZOLE 40MG TABLET PO SCH (05:51)
[2018-09-02] MEDS: INSULIN -REGULAR HUMAN 50 UNIT/0.5 ML ML SQ SCH ×4 (07:30→21:00)
[2018-09-02] MEDS: SOLIFENACIN SUCCIN 5 MG TAB PO SCH (08:39)
[2018-09-02] MEDS: AMPICILLIN TRIHYDRATE 500 MG CAP PO SCH ×3 (08:39→20:09)
[2018-09-02] MEDS: RIVAROXABAN 20 MG TABLET PO SCH (08:39)
[2018-09-02] MEDS: GLIMEPIRIDE 2 MG TABLET PO SCH ×2 (08:39→16:14)
[2018-09-02] MEDS: BISACODYL E.C. 5 MG TAB PO SCH ×2 (08:39→20:10)
[2018-09-02] MEDS: ASCORBIC ACID 500 MG TABLET PO SCH (08:39)
[2018-09-02] MEDS: POTASSIUM CL SA 10 MEQ TAB PO SCH (08:39)
[2018-09-02] MEDS: DOCUSATE NA/SENNA CONC 1 TAB PO SCH ×2 (08:39→20:10)
[2018-09-02] MEDS: Meropenem 1,000 MG in NA CHLORIDE 0.9% 100 ML IV SCH ×2 (08:40→20:09)
[2018-09-02] MEDS: RIVASTIGMINE 9.5 MG/24 HR PATCH TD SCH (08:41)
[2018-09-02] MEDS: METOPROLOL TAR 25 MG TAB PO SCH ×2 (08:41→20:10)
[2018-09-02] MEDS: HOME MED 1 EA UNK (Cyclosporine [Restasis] 1 GTT) EACH EYE SCH ×2 (08:44→21:00)
[2018-09-02] MEDS: FUROSEMIDE 40 MG TABLET PO SCH (08:44)
[2018-09-02] MEDS: BIFIDOBACTERIUM INFANTIS 4 MG PO SCH (08:44)
[2018-09-02] MEDS: LISINOPRIL 5 MG TAB PO SCH (08:45)
[2018-09-02] MEDS: COLLAGENASE 30 GM OINTMENT TOP SCH (09:00)
[2018-09-02] MEDS: HOME MED 1 EA UNK (Mirabegron [Myrbetriq] 25 MG) PO SCH (09:00)
[2018-09-02 09:11] VITALS: O2SAT 97
[2018-09-02] MEDS: ATORVASTATIN 40 MG TAB PO SCH (20:10)
[2018-09-02] MEDS: RANITIDINE 150 MG TABLET PO SCH (20:10)
--- NOTE | 2018-09-03 00:25 | PN ---
Date of Progress Note: 09/02/2018 Subjective: The patient was seen this morning for followup. He was lying in bed. Denied any compla ints. Not in any distress. Objective: Vital Signs: Reviewed. HEENT: Unremarkable. Lungs: Clear to auscultation. No rhonchi. No rales. Heart: Sounds normal. Abdomen: Soft. Bowel sounds normal. No guarding, rigidity, tenderness, distention. Extremities: No leg edema. Laboratory Data: Sodium 143, potassium 4.2, chloride 112, bicarb 27, BUN 38, creatinine 1.31, glucos e 155. Impression: 1.Urinary tract infection. 2.Chronic systolic congestive heart failure. 3.Coronary artery disease. 4.Diabetes mellitus. 5.Chronic kidney disease, stage 3. Plan: We will go ahead and continue current antibiotics. Continue physical therapy to help ambulate the patient. Discharge order was written today for patient to go to senior living facility as soc ial worker has been working on discharge planning to go to senior living facility, which is in [facility]. Social Service notified me today that the patient was approved and accepted to go to this [facility], but the patient's family does not want him to go there, and they are appealing the discharge or yaa. Subsequently, daughter came to my office to talk to me, and she informed me that she did go to senior living facility yesterday to sign some papers, and the room that they assigned for the patie nt did not have any window and was not cooler, and she did not feel comfortable her dad going into at room as she feels like emotionally it will be very difficult for him to be isolated in that room w ithout any daylight or windows. The patient lives at [facility], and they will not allow any IV antibi otics at that particular facility. Daughter is not able to handle these IV antibiotics at home. I d id inform daughter that we will try to see if insurance will allow him to go to [facility] or not, and we will have social media intern look into it, and I did communicate with charge nurse regarding this to see if social media intern can assist with diet if it is possible. Meanwhile, while in [facility], we will continue current antibiotic therapy. SANTIAGO/MODL Voice ID: [id number] Report ID: [id number]
[2018-09-03] MEDS: PANTOPRAZOLE 40MG TABLET PO SCH (06:31)
[2018-09-03] MEDS: INSULIN -REGULAR HUMAN 50 UNIT/0.5 ML ML SQ SCH ×4 (07:30→22:24)
[2018-09-03] MEDS: Meropenem 1,000 MG in NA CHLORIDE 0.9% 100 ML IV SCH ×2 (08:50→22:22)
[2018-09-03] MEDS: POTASSIUM CL SA 10 MEQ TAB PO SCH (08:51)
[2018-09-03] MEDS: ASCORBIC ACID 500 MG TABLET PO SCH (08:51)
[2018-09-03] MEDS: METOPROLOL TAR 25 MG TAB PO SCH ×2 (08:51→22:23)
[2018-09-03] MEDS: RIVAROXABAN 20 MG TABLET PO SCH (08:51)
[2018-09-03] MEDS: GLIMEPIRIDE 2 MG TABLET PO SCH ×2 (08:52→17:42)
[2018-09-03] MEDS: AMPICILLIN TRIHYDRATE 500 MG CAP PO SCH ×3 (08:52→22:22)
[2018-09-03] MEDS: FUROSEMIDE 40 MG TABLET PO SCH (08:52)
[2018-09-03] MEDS: LISINOPRIL 5 MG TAB PO SCH (08:52)
[2018-09-03] MEDS: RIVASTIGMINE 9.5 MG/24 HR PATCH TD SCH (08:53)
[2018-09-03] MEDS: HOME MED 1 EA UNK (Mirabegron [Myrbetriq] 25 MG) PO SCH (08:54)
[2018-09-03] MEDS: HOME MED 1 EA UNK (Cyclosporine [Restasis] 1 GTT) EACH EYE SCH ×2 (08:54→21:00)
[2018-09-03] MEDS: COLLAGENASE 30 GM OINTMENT TOP SCH (08:54)
[2018-09-03] MEDS: BIFIDOBACTERIUM INFANTIS 4 MG PO SCH (08:54)
[2018-09-03] MEDS: BISACODYL E.C. 5 MG TAB PO SCH ×2 (09:18→21:00)
[2018-09-03] MEDS: SOLIFENACIN SUCCIN 5 MG TAB PO SCH (09:18)
[2018-09-03] MEDS: DOCUSATE NA/SENNA CONC 1 TAB PO SCH ×2 (09:20→21:00)
[2018-09-03] MEDS: ATORVASTATIN 40 MG TAB PO SCH (22:23)
[2018-09-03] MEDS: RANITIDINE 150 MG TABLET PO SCH (22:23)
--- NOTE | 2018-09-04 01:54 | PN ---
Date of Progress Note: 09/03/2018 Subjective: The patient was seen this morning for followup. No new complaints, problems reported by patient. Objective: General: Lying in bed, not in any distress. Vital Signs: Reviewed. HEENT: Unremarkable. Lungs: Clear to auscultation. Heart: Sounds normal. Abdomen: Soft. Bowel sounds normal. No guarding, rigidity, tenderness, or distention. Extremities: No leg edema. Impression: 1.Urinary tract infection. 2.Chronic systolic congestive heart failure. 3.Chronic kidney disease, stage 3. 4.Type 2 diabetes mellitus. Plan: Continue current medication and antibiotics. Social Service is assisting the patient with dis charge planning. Once arrangement is completed, then we can plan to discharge patient. Meanwhile, juancarlos cummins current care. SANTIAGO/MODL Voice ID: [id number] Report ID: [id number]
[2018-09-04] MEDS: PANTOPRAZOLE 40MG TABLET PO SCH (06:29)
[2018-09-04 07:05] LABS: Absolute Lymphocytes (CBC) 1.2 K/uL (0.7-4.9); Absolute Monocytes 0.8 K/uL (0.1-1.3); Absolute Neutrophil 6.8 K/uL (1.8-8.0); Basophils % 0.4 % (0-1.3); Hematocrit 38.5 % (39.6-49.0); Lymphocytes % 13.4 % (15.3-44.8); MPV 10.6 fL (7.6-11.3); Monocytes % 8.7 % (3.3-12.3); RBC Red Blood Cell Count 4.16 M/uL (4.33-5.43)
[2018-09-04 07:18] LABS: Magnesium 2.3 mg/dL (1.8-2.4)
[2018-09-04] MEDS: INSULIN -REGULAR HUMAN 50 UNIT/0.5 ML ML SQ SCH (08:30)
[2018-09-04] MEDS: BISACODYL E.C. 5 MG TAB PO SCH (09:00)
[2018-09-04] MEDS: DOCUSATE NA/SENNA CONC 1 TAB PO SCH (09:00)
[2018-09-04] MEDS: HOME MED 1 EA UNK (Mirabegron [Myrbetriq] 25 MG) PO SCH (09:00)
[2018-09-04] MEDS: HOME MED 1 EA UNK (Cyclosporine [Restasis] 1 GTT) EACH EYE SCH (09:00)
[2018-09-04] MEDS: COLLAGENASE 30 GM OINTMENT TOP SCH (09:00)
[2018-09-04] MEDS: BIFIDOBACTERIUM INFANTIS 4 MG PO SCH (09:00)
[2018-09-04 09:16] VITALS: TEMP 96.9
[2018-09-04] MEDS: Meropenem 1,000 MG in NA CHLORIDE 0.9% 100 ML IV SCH (10:02)
[2018-09-04] MEDS: SOLIFENACIN SUCCIN 5 MG TAB PO SCH (10:02)
[2018-09-04] MEDS: FUROSEMIDE 40 MG TABLET PO SCH (10:02)
[2018-09-04] MEDS: METOPROLOL TAR 25 MG TAB PO SCH (10:03)
[2018-09-04] MEDS: GLIMEPIRIDE 2 MG TABLET PO SCH (10:03)
[2018-09-04] MEDS: LISINOPRIL 5 MG TAB PO SCH (10:03)
[2018-09-04] MEDS: POTASSIUM CL SA 10 MEQ TAB PO SCH (10:03)
[2018-09-04] MEDS: ASCORBIC ACID 500 MG TABLET PO SCH (10:03)
[2018-09-04] MEDS: RIVAROXABAN 20 MG TABLET PO SCH (10:04)
[2018-09-04] MEDS: RIVASTIGMINE 9.5 MG/24 HR PATCH TD SCH (10:04)
[2018-09-04] MEDS: AMPICILLIN TRIHYDRATE 500 MG CAP PO SCH (11:28)
[2018-09-04 12:06] VITALS: BP 135/70
--- NOTE | 2018-09-06 23:56 | DS ---
Date of Discharge: 09/04/2018 Disposition: Discharged to go to shelter facility. Physical Examination: HEENT: Unremarkable. Lungs: Clear to auscultation. Heart: Heart sounds normal. Abdomen: Soft. Bowel sounds normal. No guarding, rigidity, tenderness, distention. Extremities: No leg edema. Laboratory Data: Initial white count on 08/27/2018 was 8.2, hemoglobin 12.4, platelets 211. Last wh ite count on the day of discharge 9, hemoglobin 12.8, platelets 175. Last chemistry upon discharge o n the day of discharge; sodium 143, potassium 4, chloride 112, bicarb 26, BUN 33, creatinine 1.46, gl ucose 173. Upon admission, procalcitonin less than 0.05, BUN 28, creatinine 1.67. Urine culture gre w E. coli and it is ESBL and Enterococcus faecalis. Final Diagnoses: 1.Urinary tract infection, organism Escherichia coli, extended spectrum beta lactamase and Enterococ cus faecalis. 2.Coronary artery disease. 3.Chronic systolic congestive heart failure. 4.Chronic kidney disease stage 3. 5.Anemia in chronic kidney disease. 6.Type 2 diabetes mellitus. 7.Hypertension. 8.Hyperlipidemia. 9.Paroxysmal atrial fibrillation. 10.Alzheimer disease. 11.Osteoarthritis, multiple sites. 12.Prostate cancer. Hospital Course: An 88-year-old male patient living at [facility] was admitted to the hospital with urinary tract infection. Please see dictated H and P for more information. The patient's urine test done on outpatient basis 2 days prior to admission had shown abnormality consis tent with urinary tract infection and culture results grew E coli, which was ESBL and another bacteri a Enterococcus faecalis. The patient's daughter was contacted requesting admission to the hospital a nd after arrangements completed for direct admission, he was admitted to the hospital. IV meropenem and oral ampicillin were started. His home medications were continued. Diabetes was managed with sl iding scale insulin. Metformin was discontinued because of his renal function. His other medical pr oblems remained stable. He tolerated IV meropenem very well, it was 1000 mg every 12 hours. PICC li ne was placed and Social Service was consulted to help make arrangements for shelter facility placement. Physical Therapy was consulted for the patient to help ambulate the patient and he mitzi nued to ambulate well. After insurance approval was obtained by Social Service and arrangements comp leted for patient to go to the facility in [place] and on the day of discharge, the patient's daught er informs social service that she did not feel comfortable the patient going to that particular faci lity, so she did not feel the discharge and from insurance company, the final decision came back that the discharge was upheld and during that process, the patient's daughter wanted social service to tr y to see if the patient can go to another shelter facility of her choice, which was across e [address] from hospital [facility]. Unfortunately, by the time of discharge deadline, we did not hea r anything from insurance company, so patient's daughter decided to take the patient to [facility] a s a private pay instead of taking the patient to the facility in [place]. Discharge Medications And Instructions: 1.Continue all prior home medication except stop metformin and take new medications as below: a.Ampicillin 500 mg 3 times a day for 5 days. b.Meropenem 1000 mg IV piggyback every 12 hours for 5 days. c.Tradjenta 5 mg 1 tablet by mouth daily with breakfast for diabetes. 2.Consult Physical Therapy, Occupational Therapy. Fall precautions, flush PICC line per protocol, c hange PICC line dressing per protocol. 3.Follow up at my office in 1 week after [facility] jail. 4.Get repeat urinalysis and urine culture in 3-4 days after completing antibiotic therapy, and after results reviewed, decision to be made to remove PICC line. SANTIAGO/MODL Voice ID: [id number] Report ID: [id number]
== END 2018-09-04 12:31 | DRG 690 ==
LOC: 4TH 11:00
PROVIDERS: ADMIT Internal Medicine; ATTEND Internal Medicine
PROC: 02HV33Z Insertion of Infusion Device into Superior Vena Cava, Percutaneous Approach (ICD-10-PCS; principal; 2018-08-28)
DX: N39.0 Urinary tract infection, site not specified (principal); I13.0 Hypertensive heart and chronic kidney disease with heart failure and stage 1 through stage 4 chronic kidney disease, or unspecified chronic kidney disease; I50.22 Chronic systolic (congestive) heart failure; B96.20 Unspecified Escherichia coli [E. coli] as the cause of diseases classified elsewhere; Z16.12 Extended spectrum beta lactamase (ESBL) resistance; B95.2 Enterococcus as the cause of diseases classified elsewhere; I25.10 Atherosclerotic heart disease of native coronary artery without angina pectoris; E11.22 Type 2 diabetes mellitus with diabetic chronic kidney disease; N18.3 Chronic kidney disease, stage 3 (moderate); E78.5 Hyperlipidemia, unspecified; I48.0 Paroxysmal atrial fibrillation; G30.9 Alzheimer's disease, unspecified; F02.80 Dementia in other diseases classified elsewhere, unspecified severity, without behavioral disturbance, psychotic disturbance, mood disturbance, and anxiety; D63.1 Anemia in chronic kidney disease; M15.9 Polyosteoarthritis, unspecified; K21.9 Gastro-esophageal reflux disease without esophagitis; Z85.46 Personal history of malignant neoplasm of prostate; Z95.0 Presence of cardiac pacemaker; Z96.89 Presence of other specified functional implants; Z95.1 Presence of aortocoronary bypass graft; Z88.5 Allergy status to narcotic agent
CPT/HCPCS: 36415; 71045; 80048; 81001; 82962; 83735; 84145; 85025; 87077; 87086; 87088; 87186; 87493; 96365; 96367; 97116; 97163; 97530; J3590

== ENCOUNTER 2018-11-07 11:55 | Inpatient (IN) | payer OTHER ==
[2018-11-07 12:53] LABS: Absolute Lymphocytes (CBC) 0.4 K/uL (0.7-4.9); Basophils % 0.3 % (0-1.3); Hematocrit 35.2 % (39.6-49.0); Lymphocytes % 2.6 % (15.3-44.8); MPV 10.2 fL (7.6-11.3); RBC Red Blood Cell Count 3.88 M/uL (4.33-5.43)
[2018-11-07 12:57] LABS: Protime INR 1.81
[2018-11-07 13:12] LABS: ALT/SGPT 15 U/L (12-78); AST/SGOT 9 U/L (15-37); Albumin 3.3 g/dL (3.4-5.0); Alkaline Phosphatase 78 U/L (45-117); BUN Blood Urea Nitrogen 44 mg/dL (7-18); Bicarbonate 28 mmol/L (21-32); Bilirubin Direct 0.2 mg/dL (0-0.2); Bilirubin Total 0.5 mg/dL (0.2-1.0); CKMB Creatine Kinase MB < 1.0 ng/mL (0.3-3.6); Creatine Phosphokinase 50 U/L (39-308); Glucose Level 148 mg/dL (74-106); Lipase 144 U/L (73-393); Potassium 4.4 mmol/L (3.5-5.1); Sodium Level 142 mmol/L (136-145); Troponin (Emerg Dept Use Only) < 0.02 ng/mL (0.0-0.045)
[2018-11-07 13:21] LABS: Blood Morphology Comment NOT SEEN (NOT SEEN); Platelet Estimate ADEQ
--- NOTE | 2018-11-07 13:33 | RAD REPORT ---
EXAM DESCRIPTION: Brodie Single View11/07/2018 12:52 pm CLINICAL HISTORY: Fever COMPARISON: August 2018 FINDINGS: The lungs appear clear of acute infiltrate. The heart is mildly enlarged. Pacemaker leads are in place. IMPRESSION: No acute abnormalities displayed
[2018-11-07] MEDS ORDERED: ACETAMINOPHEN 650MG/RECT SUPP PR ONE (13:39)
[2018-11-07] MEDS ORDERED: LEVALBUTEROL 1.25 MG/3 ML NEB ONE (14:09)
[2018-11-07 14:13] LABS: Urine Blood NEGATIVE (NEG); Urine Glucose NEGATIVE (NEG); Urine Protein TRACE (NEG)
--- NOTE | 2018-11-07 14:25 | ER ---
Nurse's Notes [facility] Name: Cornelius Lazo Age: 88 yrs Sex: Male : 1930 Arrival Date: 11/07/2018 Time: 11:59 Bed 18 Private MD: Diagnosis: Sepsis, unspecified organism Presentation: 11/07 12:00 Presenting complaint: EMS states: called out to [facility] for febrile and hypotensive em pt 80/70's at facility, was AFIB on monitor, no hx of AFIB, EMS reports 103 ax temp, 88% SPO2 on RA. Transition of care: patient was not received from another setting of care. Onset of symptoms was November 07, 2018. Risk Assessment: Do you want to hurt yourself or someone else? Unable to obtain. Initial Sepsis Screen: Does the patient meet any 2 criteria? Temp <36.0*C (96.8*F)) or > 38.3*C (100.9*F). Altered Mental Status. HR > 90 bpm. Yes Does the patient have a suspected source of infection? Yes: Skin breakdown/wound. Care prior to arrival: None. 12:00 Method Of Arrival: EMS: [facility] em 12:02 Acuity: YUMIKO 2 hb Historical: - Allergies: 12:10 No Known Allergies; em - Home Meds: 12:18 furosemide 40 mg oral tab once daily [Active]; glimepiride 2 mg oral tab twice a day hb [Active]; lansoprazole 30 mg oral cpDR once daily [Active]; lisinopril 5 mg Oral tab 1 tab once daily [Active]; metformin 500 mg oral tr24 twice a day [Active]; metoprolol tartrate 25 mg Oral tab 1 tab 2 times per day [Active]; Myrbetriq 25 mg oral Tb24 1 tab once daily [Active]; ranitidine HCl 150 mg Oral tab nightly [Active]; Restasis 0.05 % ophthalmic dpet 1 drop to both eyes twice a day [Active]; rivastigmine 9.5 mg/24 hr transdermal pt24 once daily [Active]; simvastatin 80 mg Oral tab daily [Active]; Vesicare 5 mg Oral tab once daily [Active]; One Daily Vitamins [Active]; Vitamin D Oral 1,000 unit daily [Active]; Xarelto 20 mg Oral tab 1 tab once daily [Active]; Nitrostat 0.4 mg SL subl 1 tab every 5 minutes x 3 [Active]; - PMHx: 12:10 adenocarcinoma of prostate; Alzheimers; Atrial Fib; Diabetes - NIDDM; diverticulosis; em GERD; Hypercholesterolemia; Hypertension; Myocardial infarction; osteoarthritis; Pneumonia; - Immunization history:: Adult Immunizations unknown. - Social history:: Smoking status: unknown. - Ebola Screening: : Unable to complete screening because. Screenin:13 Abuse screen: no apparent signs noted. Nutritional screening: No deficits noted. em Tuberculosis screening: No symptoms or risk factors identified. Fall Risk IV access (20 points). Gait- Impaired (20 pts.). Mental Status- Overestimates/Forgets Limitations (15 pts.). Total Rosario Fall Scale indicates High Risk Score (45 or more points). Side Rails Up X 2 Placed Close to Nursing Station Frequent Obs/Assessments Occuring. Assessment: 12:09 Reassessment: CODE SEPSIS CALLED. hb 12:10 General: Appears ill, Behavior is disoriented . Reports fever for 12-24 hours. Pain: em Complains of pain in buttocks Unable to use pain scale. Patient is disoriented. Patient appears to be grimacing. Neuro: Level of Consciousness is awake, Oriented to none in bilateral hand(s) Pupils are PERRLA. Cardiovascular: Capillary refill < 3 seconds Patient's skin is warm and dry. pacemaker noted to upper left chest. Rhythm is atrial fibrillation. Respiratory: Airway is patent Respiratory effort is even, Respiratory pattern is tachypnea Breath sounds are diminished bilaterally. Derm: Skin is intact, is healthy with good turgor, Skin is pink, warm \T\ dry. Decubitus located on right sacrum heel(s) approximately 2.6 cm to 7.5 cm is stage II has erythematous edges. 12:25 Reassessment: I agree with the assessment made by Omi MEADE. sg 13:35 Reassessment: Patient appears in no apparent distress at this time. changed brief, em rotated pt to left hip, tolerated well. 14:17 Reassessment: Patient appears in no apparent distress at this time. no change in mental em status, respirations tachypneic, pending orders. 15:30 Reassessment: pending room assignment, no change in mental status, pt rotated to right em side, tolerated well. Vital Signs: 12:10 BP 137 / 90; Pulse 109; Resp 32; Temp 101.6(O); Pulse Ox 97% on R/A; Weight 102.06 kg em (R); 12:54 BP 119 / 85; Pulse 107; Resp 34; Pulse Ox 98% on R/A; em 14:12 BP 118 / 91; Pulse 108; Resp 30 S; Pulse Ox 100% on R/A; em 15:04 BP 135 / 71; Pulse 105; Resp 40; Temp 100.3(A); Pulse Ox 94% on R/A; 5 ED Course: 11:59 Patient arrived in ED. em 12:10 Arm band placed on. em 12:13 Patient has correct armband on for positive identification. Patient has correct armband em on for positive identification. Placed in gown. Bed in low position. Call light in reach. Side rails up X2. monitoring and evaluation advisor on. Pulse ox on. NIBP on. 12:13 Maintain EMS IV. Dressing intact. Good blood return noted. Site clean \T\ dry. Gauge \T\ em site: 20 LAC. 12:19 Triage completed. hb 12:24 Omi Parekh, COATING MACHINE OPERATOR is Primary Nurse. em 12:25 Yovana Blue, GRAIN MIXER is PHCP. nh 12:25 James Brown MD is Attending Physician. nh 12:40 Inserted saline lock: 20 gauge in right antecubital area, using aseptic technique. em Blood collected. 12:40 Initial lab(s) drawn, by me, sent to lab. First set of blood cultures drawn by me. em 12:52 Chest Single View XRAY In Process Unspecified. EDMS 13:49 Robertson cath inserted, using sterile technique, 12 Fr., by me, balloon inflated, urine em specimen collected. returned cloudy urine. Patient tolerated well. 14:24 Shankar Bingham MD is Hospitalizing Provider. az 15:07 Blood Culture Adult (2) Sent. 5 15:07 Urine Microscopic Only Sent. 5 15:07 Procalcitonin Sent. 5 15:07 Protime (+inr) Sent. 5 15:07 Ptt, Activated Sent. [facility] 15:07 Troponin (emerg Dept Use Only) Sent. [facility] 15:08 LFT's Sent. [facility] 15:41 No provider procedures requiring assistance completed. Patient admitted, IV remains in em place. Administered Medications: 12:40 Drug: NS 0.9% (30 ml/kg) 30 ml/kg Route: IV; Rate: bolus; Site: right antecubital; em 16:04 Follow up: IV Status: Completed infusion; IV Intake: 1000ml em 12:53 CANCELLED (Duplicate Order): NS 0.9% (30 ml/kg) 30 ml/kg IV at bolus once; Sepsis em Protocol 13:48 Drug: Tylenol Suppository 650 mg Route: SD; em 15:40 Follow up: Response: No adverse reaction; Temperature is decreased em 13:58 Drug: Xopenex 1.25 mg Route: Inhalation; em 14:24 Follow up: Response: No adverse reaction em 14:40 Drug: Rocephin 1 grams Route: IV; Rate: calculated rate; Site: right antecubital; hb 15:40 Follow up: Response: No adverse reaction; IV Status: Completed infusion; IV Intake: 10mlem 14:42 Not Given (Other Intervention Used): Rocephin - (cefTRIAXone) 1 grams IVPB once over 30 hb mins; (mix in 50 mL NS) Point of Care Testing: Blood Glucose: 12:10 Blood Glucose: 156 mg/dL; em Ranges: Intake: 15:40 IV: 10ml; Total: 10ml. em 16:04 IV: 1000ml; Total: 1010ml. em Outcome: 14:25 Decision to Hospitalize by Provider. az 16:04 Admitted to Tele accompanied by tech, family with patient, via wheelchair, room 205, em with oxygen, with chart, Report called to RC Whitlock 16:04 Condition: good 16:04 Instructed on the need for admit, Demonstrated understanding of instructions. 16:21 Patient left the ED. em Signatures: Dispatcher [employer] Rajiv Vargas, RN RN sg Yovana Blue, GRAIN MIXER GRAIN MIXER az Omi Parekh, COATING MACHINE OPERATOR COATING MACHINE OPERATOR em Radha Chen RN RN hb Martinez, Maria [facility] Corrections: (The following items were deleted from the chart) 12:21 12:13 Reassessment: CODE SEPSIS CALLED [facility] 12:48 12:10 BP 137 / 90; Pulse 109bpm; Resp 32bpm; Pulse Ox 97% RA; Temp 101.6F Oral; em em
--- NOTE | 2018-11-07 14:26 | EDPHYS ---
Physician Documentation [facility] Name: Cornelius Lazo Age: 88 yrs Sex: Male : 1930 Arrival Date: 11/07/2018 Time: 11:59 Bed 18 Private MD: ED Physician James Brown HPI: 11/07 14:19 This 88 yrs old Male presents to ER via EMS with complaints of Fever. nh 14:19 The patient reports fever, that was measured at 101 degrees Fahrenheit. Onset: The nh symptoms/episode began/occurred yesterday. Modifying factors: there are no obvious modifying factors. Associated signs and symptoms: Pertinent positives: altered mental status,\E\ Pertinent negatives:. Severity of symptoms: At their worst the symptoms were moderate just prior to arrival, in the emergency department the symptoms are unchanged. The patient has not experienced similar symptoms in the past. The patient has not recently seen a physician. Historical: - Allergies: 12:10 No Known Allergies; em - Home Meds: 12:18 furosemide 40 mg oral tab once daily [Active]; glimepiride 2 mg oral tab twice a day hb [Active]; lansoprazole 30 mg oral cpDR once daily [Active]; lisinopril 5 mg Oral tab 1 tab once daily [Active]; metformin 500 mg oral tr24 twice a day [Active]; metoprolol tartrate 25 mg Oral tab 1 tab 2 times per day [Active]; Myrbetriq 25 mg oral Tb24 1 tab once daily [Active]; ranitidine HCl 150 mg Oral tab nightly [Active]; Restasis 0.05 % ophthalmic dpet 1 drop to both eyes twice a day [Active]; rivastigmine 9.5 mg/24 hr transdermal pt24 once daily [Active]; simvastatin 80 mg Oral tab daily [Active]; Vesicare 5 mg Oral tab once daily [Active]; One Daily Vitamins [Active]; Vitamin D Oral 1,000 unit daily [Active]; Xarelto 20 mg Oral tab 1 tab once daily [Active]; Nitrostat 0.4 mg SL subl 1 tab every 5 minutes x 3 [Active]; - PMHx: 12:10 adenocarcinoma of prostate; Alzheimers; Atrial Fib; Diabetes - NIDDM; diverticulosis; em GERD; Hypercholesterolemia; Hypertension; Myocardial infarction; osteoarthritis; Pneumonia; - Immunization history:: Adult Immunizations unknown. - Social history:: Smoking status: unknown. - Ebola Screening: : Unable to complete screening because. ROS: 14:19 Eyes: Negative for injury, pain, redness, and discharge, ENT: Negative for injury, nh pain, and discharge, Neck: Negative for injury, pain, and swelling, Cardiovascular: Negative for chest pain, palpitations, and edema, Respiratory: Negative for shortness of breath, cough, wheezing, and pleuritic chest pain, Abdomen/GI: Negative for abdominal pain, nausea, vomiting, diarrhea, and constipation, Back: Negative for injury and pain, : Negative for injury, bleeding, discharge, and swelling, MS/Extremity: Negative for injury and deformity, Skin: Negative for injury, rash, and discoloration, Psych: Negative for depression, anxiety, suicide ideation, homicidal ideation, and hallucinations, Allergy/Immunology: Negative for hives, rash, and allergies, Endocrine: Negative for neck swelling, polydipsia, polyuria, polyphagia, and marked weight changes. 14:19 Constitutional: Positive for body aches, fever. 14:19 Neuro: Positive for altered mental status. Exam: 14:19 Constitutional: This is a well developed, well nourished patient who is awake, alert, nh and in no acute distress. Head/Face: Normocephalic, atraumatic. Eyes: Pupils equal round and reactive to light, extra-ocular motions intact. Lids and lashes normal. Conjunctiva and sclera are non-icteric and not injected. Cornea within normal limits. Periorbital areas with no swelling, redness, or edema. ENT: Nares patent. No nasal discharge, no septal abnormalities noted. Tympanic membranes are normal and external auditory canals are clear. Oropharynx with no redness, swelling, or masses, exudates, or evidence of obstruction, uvula midline. Mucous membranes moist. Neck: Trachea midline, no thyromegaly or masses palpated, and no cervical lymphadenopathy. Supple, full range of motion without nuchal rigidity, or vertebral point tenderness. No Meningismus. Chest/axilla: Normal chest wall appearance and motion. Nontender with no deformity. No lesions are appreciated. Cardiovascular: Regular rate and rhythm with a normal S1 and S2. No gallops, murmurs, or rubs. Normal PMI, no JVD. No pulse deficits. Respiratory: Lungs have equal breath sounds bilaterally, clear to auscultation and percussion. No rales, rhonchi or wheezes noted. No increased work of breathing, no retractions or nasal flaring. Abdomen/GI: Soft, non-tender, with normal bowel sounds. No distension or tympany. No guarding or rebound. No evidence of tenderness throughout. Back: No spinal tenderness. No costovertebral tenderness. Full range of motion. Skin: Warm, dry with normal turgor. Normal color with no rashes, no lesions, and no evidence of cellulitis. 14:19 Neuro: Orientation: Not oriented to place, time, Mentation: is normal. Vital Signs: 12:10 BP 137 / 90; Pulse 109; Resp 32; Temp 101.6(O); Pulse Ox 97% on R/A; Weight 102.06 kg em (R); 12:54 BP 119 / 85; Pulse 107; Resp 34; Pulse Ox 98% on R/A; em 14:12 BP 118 / 91; Pulse 108; Resp 30 S; Pulse Ox 100% on R/A; em 15:04 BP 135 / 71; Pulse 105; Resp 40; Temp 100.3(A); Pulse Ox 94% on R/A; mh5 MDM: 12:25 Patient medically screened. tn 14:19 Data reviewed: vital signs, nurses notes, lab test result(s), radiologic studies, I nh have discussed the patient's presentation/case with the attending Emergency Department Physician; and as a result, I will admit patient. Counseling: I had a detailed discussion with the patient and/or guardian regarding: the historical points, exam findings, and any diagnostic results supporting the discharge/admit diagnosis, lab results, radiology results, the need for further work-up and treatment in the hospital, to return to the emergency department if symptoms worsen or persist or if there are any questions or concerns that arise at home. Physician consultation: Shankar Bingham MD was called at 14:23, was contacted at 14:23, regarding admission, to the medical/surgical unit. and will see patient in inpatient room. 11/07 12: Order name: Basic Metabolic Panel em 11/07 12:26 Order name: Blood Culture Adult (2) em 11/07 12:26 Order name: CBC with Diff em 11/07 12:26 Order name: Ckmb em 11/07 12:26 Order name: CPK 11/07 12:26 Order name: Lactate em 11/07 12:26 Order name: LFT's 11/07 12:26 Order name: Lipase; Complete Time: 13:22 em 11/07 12:26 Order name: Procalcitonin; Complete Time: 13:33 em 11/07 12:26 Order name: Protime (+inr); Complete Time: 13:22 em 11/07 12:26 Order name: Ptt, Activated; Complete Time: 13:22 em 11/07 12:26 Order name: Troponin (emerg Dept Use Only); Complete Time: 13:22 em 11/07 12:26 Order name: Urine Microscopic Only 11/07 12:26 Order name: Blood Culture Adult (2) tn 11/07 12:26 Order name: Procalcitonin tn 11/07 12:26 Order name: Protime (+inr) tn 11/07 12:26 Order name: Ptt, Activated tn 11/07 12:26 Order name: Troponin (emerg Dept Use Only) tn 11/07 12:26 Order name: Urine Microscopic Only tn 11/07 12:26 Order name: Basic Metabolic Panel; Complete Time: 13:22 EDPA 11/07 12:26 Order name: Blood Culture [facility] 11/07 12:27 Order name: CBC with Automated Diff; Complete Time: 13:22 EDPA 11/07 12:27 Order name: CKMB Creatine Kinase MB; Complete Time: 13:22 EDPA 11/07 12:26 Order name: Chest Single View XRAY; Complete Time: 13:50 em 11/07 12:26 Order name: Accucheck; Complete Time: 12:50 em 11/07 12:26 Order name: Cardiac monitoring; Complete Time: 12:50 em 11/07 12:26 Order name: EKG - Nurse/Tech; Complete Time: 12:50 em 11/07 12:26 Order name: IV Saline Lock - Large Bore; Complete Time: 12:50 em 11/07 12:26 Order name: Labs collected and sent; Complete Time: 12:50 em 11/07 12:26 Order name: O2 Per Protocol; Complete Time: 12:50 11/07 12:26 Order name: O2 Sat Monitoring; Complete Time: 12:50 em 11/07 12:26 Order name: Urine Dipstick-Ancillary (obtain specimen); Complete Time: 13:49 em 11/07 12:27 Order name: Creatine Phosphokinase; Complete Time: 13:22 EDMS 11/07 12:28 Order name: Lactate; Complete Time: 13:50 EDMS 11/07 12:28 Order name: Liver (Hepatic) Function; Complete Time: 13:22 EDMS 11/07 13:21 Order name: Manual Differential; Complete Time: 13:22 EDMS 11/07 14:08 Order name: Urine Dipstick--Ancillary (enter results) ms 11/07 16:10 Order name: Glucose, Ancillary Testing EDMS Administered Medications: 12:40 Drug: NS 0.9% (30 ml/kg) 30 ml/kg Route: IV; Rate: bolus; Site: right antecubital; em 16:04 Follow up: IV Status: Completed infusion; IV Intake: 1000ml em 12:53 CANCELLED (Duplicate Order): NS 0.9% (30 ml/kg) 30 ml/kg IV at bolus once; Sepsis em Protocol 13:48 Drug: Tylenol Suppository 650 mg Route: CO; em 15:40 Follow up: Response: No adverse reaction; Temperature is decreased em 13:58 Drug: Xopenex 1.25 mg Route: Inhalation; em 14:24 Follow up: Response: No adverse reaction em 14:40 Drug: Rocephin 1 grams Route: IV; Rate: calculated rate; Site: right antecubital; hb 15:40 Follow up: Response: No adverse reaction; IV Status: Completed infusion; IV Intake: 10mlem 14:42 Not Given (Other Intervention Used): Rocephin - (cefTRIAXone) 1 grams IVPB once over 30 hb mins; (mix in 50 mL NS) Point of Care Testing: Blood Glucose: 12:10 Blood Glucose: 156 mg/dL; em Ranges: Critical Glucose Levels:Adult <50 mg/dl or >400 mg/dl <40 mg/dl or >180 mg/dl Disposition: 18:12 Co-signature as Attending Physician, James Brown MD. Disposition: 11/07/18 14:25 Hospitalization ordered by Shankar Bingham for Inpatient Admission. Preliminary diagnosis is Sepsis, unspecified organism. - Bed requested for Telemetry/MedSurg (Inpatient). - Status is Inpatient Admission. em - Condition is Stable. - Problem is new. - Symptoms are unchanged. UTI on Admission? Yes Signatures: Dispatcher [employer] [facility] Nolvia Peraza RN RN dw Su, Yovana, CANS VACUUM TESTER CANS VACUUM TESTER tn Parekh, Omi, FRAMING MILL OPERATOR FRAMING MILL OPERATOR em Radha Chen RN RN James Brown MD MD Corrections: (The following items were deleted from the chart) 12:31 12:29 BASIC METABOLIC PANEL+C.LAB.BRZ ordered. EDPA EDMS 12:31 12:29 CBC+H.LAB.BRZ ordered. EDPA EDMS 12:31 12:29 CKMB+C.LAB.BRZ ordered. [facility] EDMS 12:31 12:29 CREATINE PHOSPHOKINASE+C.LAB.BRZ ordered. [facility] EDMS 12:31 12:29 LACTATE+C.LAB.BRZ ordered. [facility] EDPA 12:31 12:29 HEPATIC FUNCTION+C.LAB.BRZ ordered. [facility] EDMS 12:31 12:30 LIPASE+C.LAB.BRZ ordered. [facility] EDMS 12:51 12:26 Accucheck ordered. tn em 12:51 12:30 Chest Single View+RAD.RAD.BRZ ordered. [facility] EDPA 12:52 12:26 Cardiac monitoring ordered. tn em 12:52 12:26 EKG - Nurse/Tech ordered. tn em 12:52 12:26 IV Saline Lock - Large Bore ordered. tn em 12:53 12:26 NS 0.9% (30 ml/kg) 30 ml/kg IV at bolus once; Sepsis Protocol ordered. em 12:53 12:26 Labs collected and sent ordered. tn em 12:53 12:26 Oxygen Per Protocol ordered. tn em 12:53 12:26 Urine Dipstick-Ancillary ordered. tn em 12:54 12:26 O2 Sat Monitoring ordered. tn em 15:04 14:25 Hospitalization Ordered by Shankar Bingham MD for Inpatient Admission. Preliminary dw diagnosis is Sepsis, unspecified organism. Bed requested for Telemetry/MedSurg (Inpatient). Status is Inpatient Admission. Condition is Stable. Problem is new. Symptoms are unchanged. UTI on Admission? Yes. tn 16:21 15:04 11/07/2018 14:25 Hospitalization Ordered by Shankar Bingham MD for Inpatient em Admission. Preliminary diagnosis is Sepsis, unspecified organism. Bed requested for Telemetry/MedSurg (Inpatient). Status is Inpatient Admission. Condition is Stable. Problem is new. Symptoms are unchanged. UTI on Admission? Yes. dw
[2018-11-07 14:34] LABS: Urine Amorphous Sediment TRACE /HPF (NONE SEEN); Urine Bacteria <20 /HPF (NONE SEEN); Urine RBC NONE SEEN /HPF (NONE SEEN); Urine Yeast PRESENT (NONE SEEN)
[2018-11-07 14:35] LABS: Urine Culture Reflex Order REFLEXED
[2018-11-07] MEDS: NA CHLORIDE 0.9% 1,000 ML IV SCH (17:01)
[2018-11-07 17:10] VITALS: BMI 29.5
--- NOTE | 2018-11-07 17:24 | P.HP ---
Patient History Date of Service: 11/07/18 Primary Care Provider: Dr. Bourne (We are covering) Reason for admission: Fever, chills History of Present Illness: This is an 88-year-old male with multiple medical problems who was brought into the ER for not feeling well overall. Per daughter at bedside, patient was previously living at [facility] and was admitted to the hospital 1-2 months ago for PE sp L UTI, PICC line was placed and patient was unable to go to [facility] due to the PICC line. He was then transferred to [facility] for IV antibiotics and PT. He went to his daughter's house after [facility] and recently returned to [facility] about 2-3 weeks ago. He had been doing well until about a few days ago. For the past couple of days, he has gotten weaker, has had fevers on and off along with chills and shaking. Per daughter, he has also fallen multiple times when he was at [facility] and has been complaining of right-sided hip pain on and off since then. He also has multiple wounds, including his sacral wound and right and left heel wounds that were being monitored at the wound Care Center. Daughter also states that he is more disoriented and has not really been speaking since yesterday. At his baseline, patient does have dementia but these oriented to self and is more alert. He was therefore brought to the emergency room. In the emergency room, with his blood pressure was 137/90, heart rate was 109, respiratory rate was 32 and he had a temperature of 101.6. He was satting well , 97% on room air. His labs were remarkable for a creatinine of 3.16, WBC count of 14.1 with left shift and urine analysis with eased and 1+ leukocyte esterase he received Rocephin in the ER along with IV fluids. He was then referred for admission for sepsis related to urinary tract infection. At the time of my exam, patient was more awake but not oriented. He was not talking. All history was obtained from daughter at bedside. 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 Allergies morphine Allergy (Verified 03/20/16 08:26) Nausea/Vomiting Home medications list reviewed: Yes Home Medications: Lansoprazole 30 mg PO DAILY 09/21/15 Lisinopril 1 tab PO DAILY 09/21/15 Metoprolol Tartrate 1 tab PO BID 09/21/15 Rivastigmine 1 patch TOP DAILY 09/21/15 Simvastatin 80 mg PO DAILY 09/21/15 Solifenacin [Vesicare*] 1 tab PO DAILY 09/21/15 Cyclosporine [Restasis] 1 gtt EACH EYE BID 11/28/15 Multivitamin with Iron [One Daily Multivitamin-Mineral] 1 each PO DAILY Nitroglycerin [Nitrostat*] 0.4 mg SL PRN 03/19/16 Potassium Chloride [Klor-Con 10] 1 tab PO DAILY 05/01/16 Ascorbic Acid [Vitamin C] 500 mg PO DAILY 07/06/18 Cholecalciferol (Vitamin D3) [Vitamin D3] 1,000 unit PO DAILY 07/06/18 Guaifenesin [Tussin] 10 ml PO Q4H PRN 07/06/18 L.acidoph,Paracasei, B.lactis [Probiotic] 1 each PO DAILY 07/06/18 Lactulose 30 ml PO DAILY PRN 07/06/18 Ranitidine [Zantac*] 150 mg PO BEDTIME 07/06/18 Rivaroxaban [Xarelto*] 20 mg PO DAILY 07/06/18 Sennosides/Docusate Sodium [Senna Plus Tablet] 2 tab PO BID 07/06/18 Tizanidine HCl 4 mg PO Q6H PRN 07/06/18 Bifidobacterium Infantis [Align] 4 mg PO DAILY 08/27/18 Bisacodyl [Dulcolax*] 5 mg PO BID 08/27/18 Collagenase [Santyl Ointment*] 1 appl TOP DAILY 08/27/18 Furosemide 40 mg PO DAILY 08/27/18 Glimepiride 2 mg PO BID 08/27/18 Guaifenesin/Codeine Phosphate [Virtussin AC Liquid] 5 ml PO TIDP PRN 08/27/18 Mirabegron [Myrbetriq] 25 mg PO DAILY 08/27/18 Nystatin Cream [Mycostatin 100MU/Gm Cream*] 1 appl TOP BID PRN 08/27/18 Vit C/E/Zn/Coppr/Lutein/Zeaxan [Preservision Areds 2 Softgel] 1 tab PO BID 08/27 - Past Medical/Surgical History Has patient received pneumonia vaccine in the past: Yes Diabetic: Yes -: HTN -: GERD -: hyperlipidemia -: constipation -: Alzheimers -: falls recently -: pneumonia -: 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 -: Osteoarthritis -: SD -: Afib -: GERD -: aniket ankle surgeries -: hernia repair -: CABG x 4 vessels -: Pacemaker - Family History Father -: Heart disease, Hypertension Mother -: Cancer - Social History Smoking Status: Former smoker Alcohol use: No CD- Drugs: No Caffeine use: No Place of Residence: [facility] Review of Systems is unable to be obtained General: Fever, Chills, Weakness, As per HPI Genitourinary: As per HPI Integumentary: As per HPI Neurological: Weakness, As per HPI Physical Examination - Vital Signs Temperature: 100.3 F Blood Pressure: 135/71 Pulse: 105 Respirations: 40 - Physical Exam General: Other (Sleepy, though arousable. Not oriented) HEENT: Atraumatic, PERRLA, Mucous membr. moist/pink, EOMI, Sclerae nonicteric Neck: Supple, 2+ carotid pulse no bruit, No LAD, Without JVD or thyroid abnormality Respiratory: Clear to auscultation bilaterally, Normal air movement Cardiovascular: Normal S1 S2, Irregular heart rate/rhythm (Tachycardic) Gastrointestinal: Normal bowel sounds, No tenderness Musculoskeletal: No tenderness Integumentary: Pressure ulcer (Multiple; sacral ulcer, right and left heel ulcer ) Neurological: Other (Unable to be tested as patient not speaking/following commands at this time) - Studies Laboratory Data (last 24 hrs) 11/07/18 12:40: PT 20.9 H, INR 1.81, APTT 36.6 11/07/18 12:40: WBC 14.1 H, Hgb 11.4 L, Hct 35.2 L, Plt Count 206 11/07/18 12:40: Sodium 142, Potassium 4.4, BUN 44 H, Creatinine 3.16 H, Glucose 148 H, Total Bilirubin 0.5, AST 9 L, ALT 15, Alkaline Phosphatase 78, Lipase 144 Assessment and Plan - Problems (Diagnosis) (1) Sepsis Current Visit: Yes Status: Acute Plan: Secondary to acute cystitis. - continue IV fluids - continue IV antibiotics: Will start IV meropenem (pharmacy to help renally dose) as patient with recent history of ESBL E. coli - monitor vital signs and labs Qualifiers: Sepsis type: sepsis due to unspecified organism Qualified Code(s): A41.9 - Sepsis, unspecified organism (2) Cystitis Current Visit: Yes Status: Acute Plan: Likely secondary to prostatic device. - patient with a history of multiple UTIs, most recently with the documented UTI with ESBL (3) History of ESBL E. coli infection Current Visit: Yes Status: Chronic (4) Right hip pain Current Visit: Yes Status: Acute Plan: Status post fall a few weeks ago. Patient has been having intermittent right hip pain. - we will go ahead and get a right hip x-ray to evaluate further. (5) Fall Current Visit: Yes Status: Acute Qualifiers: Encounter type: initial encounter Qualified Code(s): W19.XXXA - Unspecified fall, initial encounter (6) Encephalopathy Current Visit: Yes Status: Acute Plan: Secondary to fall versus advancing dementia - will continue to monitor mentation. (7) Congestive heart failure Current Visit: No Status: Chronic Qualifiers: Heart failure type: systolic Heart failure chronicity: chronic Qualified Code(s): I50.22 - Chronic systolic (congestive) heart failure (8) Atrial fibrillation Current Visit: No Status: Chronic Qualifiers: Atrial fibrillation type: paroxysmal Qualified Code(s): I48.0 - Paroxysmal atrial fibrillation (9) Alzheimer's dementia Current Visit: Yes Status: Chronic Qualifiers: Alzheimer's disease onset: unspecified onset Dementia behavioral disturbance: without behavioral disturbance Qualified Code(s): G30.9 - Alzheimer's disease, unspecified; F02.80 - Dementia in other diseases classified elsewhere without behavioral disturbance (10) 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 insulin use: without retirement use Diabetes mellitus complication status: with kidney complications Diabetes mellitus complication detail: with chronic kidney disease Chronic kidney disease stage: stage 3 (moderate) Qualified Code(s): E11.22 - Type 2 diabetes mellitus with diabetic chronic kidney disease; N18.3 - Chronic kidney disease, stage 3 (moderate) (14) Osteoarthritis, multiple sites Onset Date: 03/20/16 Current Visit: No Status: Chronic Qualifiers: Osteoarthritis type: unspecified Qualified Code(s): M15.9 - Polyosteoarthritis, unspecified (15) Unstageable pressure ulcer of heel Current Visit: No Status: Resolved Plan: Bilateral (16) Acute kidney injury Current Visit: Yes Status: Acute Plan: Acute on chronic kidney injury - creatinine above baseline, currently 3.16 - will continue IV fluids and continue to monitor kidney function - avoid nephrotoxic drugs - Plan DVT prophylaxis: Lovenox GI prophylaxis: None Diet: Heart healthy Disposition: Admit to floor, pending symptomatic improvement along with cultures. Initiated goals of care discussion with daughter at bedside. Daughter states that it if no improvement with antibiotics in mentation, they may be considering hospice. We will continue to follow up - Advance Directives Does patient have a Living Will: Yes Does patient have a Durable POA for Healthcare: No Time Spent Managing Pts Care (In Minutes): 60
[2018-11-07] MEDS: Meropenem 500 MG in NA CHLORIDE 0.9% 100 ML IV SCH (18:00)
[2018-11-07] MEDS ORDERED: ACETAMINOPHEN 500 MG TAB PO PRN (18:20)
[2018-11-07] MEDS ORDERED: ACETAMINOPHEN 500 MG TAB ONE (18:45)
--- NOTE | 2018-11-07 19:09 | RAD REPORT ---
EXAM DESCRIPTION: RAD - Hip Right 2 View - 11/07/2018 7:02 pm CLINICAL HISTORY: Right hip pain FINDINGS: The superior aspect of right iliac crest as well as the medial aspect of the right pubic b one are not included in the field of view and are not evaluated. Bones are osteoporotic No fracture or dislocation is seen.
[2018-11-07] MEDS ORDERED: CEFTRIAXONE/SWI 1gm 1 GM/10 ML SYR IV SCH (21:00)
[2018-11-07] MEDS ORDERED: NA CHLORIDE 0.9% 500 ML IV ONE (21:28)
[2018-11-08] MEDS: VANCOMYCIN 2 GM in NA CHLORIDE 0.9% 500 ML IVPB SCH (04:41)
[2018-11-08] MEDS ORDERED: NA CHLORIDE 0.9% 500 ML ONE (04:48)
[2018-11-08] MEDS ORDERED: VANCOMYCIN 1 GM/VIAL ONE (04:54)
[2018-11-08] MEDS ORDERED: VANCOMYCIN 1.25 GM in NA CHLORIDE 0.9% 250 ML IVPB SCH (05:00)
--- NOTE | 2018-11-08 05:28 | P.PN ---
Date of Service: 11/08/18 Blood cultures positive for gram positives. Start vancomycin until cultures completely results
[2018-11-08] MEDS: Meropenem 500 MG in NA CHLORIDE 0.9% 100 ML IV SCH ×2 (05:42→17:52)
[2018-11-08] MEDS: NA CHLORIDE 0.9% 1,000 ML IV SCH ×2 (05:50→12:20)
[2018-11-08 06:36] LABS: Absolute Lymphocytes (CBC) 0.7 K/uL (0.7-4.9); Basophils % 0.2 % (0-1.3); Hematocrit 31.6 % (39.6-49.0); Lymphocytes % 5.2 % (15.3-44.8); MPV 10.7 fL (7.6-11.3); RBC Red Blood Cell Count 3.45 M/uL (4.33-5.43)
[2018-11-08 06:37] LABS: Albumin 2.5 g/dL (3.4-5.0); Bilirubin Total 0.3 mg/dL (0.2-1.0); Potassium 4.2 mmol/L (3.5-5.1); Protein, Total 6.5 g/dL (6.4-8.2)
--- NOTE | 2018-11-08 13:42 | P.PN ---
Subjective Date of Service: 11/08/18 Primary Care Provider: Dr. Bourne (We are covering) Chief Complaint: Fever, chills Patient seen and examined at bedside. Daughter at bedside. Chart reviewed and case discussed with nursing staff. Overnight, patient did improve. Talking slightly more this morning but is more responsive, according to daughter. Review of Systems 10-point ROS is otherwise unremarkable Physical Examination - Vital Signs Temperature: 98.2 F Blood Pressure: 127/63 Pulse: 94 Respirations: 38 Pulse Ox (%): 92 - Physical Exam General: Confused, Other (More alert, not oriented) Respiratory: Clear to auscultation bilaterally, Normal air movement Cardiovascular: Regular rate/rhythm, Normal S1 S2 Gastrointestinal: Normal bowel sounds, No tenderness Musculoskeletal: No tenderness Integumentary: Other (Multiple wound/ulcers) Assessment And Plan - Current Problems (Diagnosis) (1) Sepsis Current Visit: Yes Status: Acute Plan: Secondary to acute cystitis. - continue IV fluids - continue IV antibiotics: Will start IV meropenem (pharmacy to help renally dose) as patient with recent history of ESBL E. coli - monitor vital signs and labs Qualifiers: Sepsis type: sepsis due to unspecified organism Qualified Code(s): A41.9 - Sepsis, unspecified organism (2) Cystitis Current Visit: Yes Status: Acute Plan: Likely secondary to prostatic device. 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 Patient has been having intermittent right hip pain. - we will go ahead and get a right hip x-ray to evaluate further. (6) Fall Current Visit: Yes Status: Acute Qualifiers: Encounter type: initial encounter Qualified Code(s): W19.XXXA - Unspecified fall, initial encounter (7) Encephalopathy Current Visit: Yes Status: Acute Plan: Secondary to fall versus advancing dementia - will continue to monitor mentation. (8) Congestive heart failure Current Visit: No Status: Chronic Qualifiers: Heart failure type: systolic Heart failure chronicity: chronic Qualified Code(s): I50.22 - Chronic systolic (congestive) heart failure (9) Atrial fibrillation Current Visit: No Status: Chronic Qualifiers: Atrial fibrillation type: paroxysmal Qualified Code(s): I48.0 - Paroxysmal atrial fibrillation (10) Alzheimer's dementia Current Visit: Yes Status: Chronic Qualifiers: Alzheimer's disease onset: unspecified onset Dementia behavioral disturbance: without behavioral disturbance Qualified Code(s): G30.9 - Alzheimer's disease, unspecified; F02.80 - Dementia in other diseases classified elsewhere without behavioral disturbance (11) 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 transplanted heart: [place] heart Associated angina: without angina Qualified Code(s): I25.10 - Atherosclerotic heart disease of [place] coronary artery without angina pectoris (13) CKD (chronic kidney disease), stage III Onset Date: 03/20/16 Current Visit: No Status: Chronic (14) Diabetes mellitus Onset Date: 09/26/15 Current Visit: No Status: Chronic Qualifiers: Diabetes mellitus type: type 2 Diabetes mellitus prison insulin use: without longwall headgate operator use Diabetes mellitus complication status: with kidney complications Diabetes mellitus complication detail: with chronic kidney disease Chronic kidney disease stage: stage 3 (moderate) Qualified Code(s): E11.22 - Type 2 diabetes mellitus with diabetic chronic kidney disease; N18.3 - Chronic kidney disease, stage 3 (moderate) (15) Osteoarthritis, multiple sites Onset Date: 03/20/16 Current Visit: No Status: Chronic Qualifiers: Osteoarthritis type: unspecified Qualified Code(s): M15.9 - Polyosteoarthritis, unspecified (16) Unstageable pressure ulcer of heel Current Visit: No Status: Resolved Plan: Bilateral (17) Acute kidney injury Current Visit: Yes Status: Acute Plan: Acute on chronic kidney injury - creatinine above baseline, currently 3.16 - will continue IV fluids and continue to monitor kidney function - avoid nephrotoxic drugs - Plan DVT prophylaxis: Lovenox GI prophylaxis: None Diet: Heart healthy Disposition: pending symptomatic improvement along with cultures. Daughter states that it if no improvement with antibiotics in mentation, they may be considering hospice. We will continue to follow up. We will have social work consult with patient tomorrow.
[2018-11-09] MEDS: Meropenem 500 MG in NA CHLORIDE 0.9% 100 ML IV SCH ×2 (05:05→17:53)
[2018-11-09 06:29] LABS: Absolute Lymphocytes (CBC) 0.8 K/uL (0.7-4.9); Basophils % 0.2 % (0-1.3); Hematocrit 30.8 % (39.6-49.0); Lymphocytes % 7.2 % (15.3-44.8); MPV 10.6 fL (7.6-11.3); RBC Red Blood Cell Count 3.41 M/uL (4.33-5.43)
[2018-11-09 06:47] LABS: Albumin 2.3 g/dL (3.4-5.0); Bilirubin Total 0.3 mg/dL (0.2-1.0); Potassium 3.5 mmol/L (3.5-5.1); Protein, Total 6.3 g/dL (6.4-8.2)
[2018-11-09] MEDS ORDERED: KCL 20 MEQ/100 mL IVPB 20 MEQ/100 ML BAG IV SCH (09:00)
[2018-11-09] MEDS: NA CHLORIDE 0.9% 1,000 ML IV SCH (09:00)
--- NOTE | 2018-11-09 10:23 | EKG ---
Test Date: 2018-11-07 Test Time: 12:02:01 Sustainability Engineer: ROHAN MEASUREMENT RESULTS: Intervals: Rate: 111 MT: QRSD: 70 QT: 290 QTc: 394 [place]: P: MT: QRS: 30 T: 246 INTERPRETIVE STATEMENTS: Atrial fibrillation with rapid ventricular response Septal infarct, age undetermined Abnormal ECG Compared to ECG 03/22/2016 05:02:16 No significant changes Electronically Signed On 11-09-18 10:24:10 CDT by Indra Carlson
--- NOTE | 2018-11-09 11:06 | P.PN ---
Subjective Date of Service: 11/09/18 Primary Care Provider: Dr. Bourne (We are covering) Chief Complaint: Fever, chills Patient seen and examined at bedside. Daughter at bedside. Chart reviewed and case discussed with nursing staff. Patient more alert awake this morning. Talking more. Seems to be returning closer to baseline mentation. No complaints this morning Afebrile overnight Review of Systems 10-point ROS is otherwise unremarkable Physical Examination - Vital Signs Temperature: 97.7 F Blood Pressure: 120/76 Pulse: 87 Respirations: 18 Pulse Ox (%): 97 - Physical Exam General: Alert, In no apparent distress, Cachectic, Other (Elderly, ill appearing) HEENT: Atraumatic, PERRLA, EOMI Neck: Supple, JVD not distended Respiratory: Clear to auscultation bilaterally, Normal air movement Cardiovascular: Regular rate/rhythm, Normal S1 S2 Gastrointestinal: Normal bowel sounds, No tenderness Musculoskeletal: No tenderness Integumentary: No rashes Neurological: Normal speech, Normal tone, Normal affect Lymphatics: No axilla or inguinal lymphadenopathy - Studies Microbiology Data (last 24 hrs): 11/07/18 13:45 Clean Catch Urine [place] Count - Final <10,000 CFU/ML. 11/07/18 13:45 Clean Catch Urine - Final Assessment And Plan - Current Problems (Diagnosis) (1) Sepsis Current Visit: Yes Status: Acute Plan: Secondary to acute cystitis and bacteremia. Improving - continue IV fluids - continue IV antibiotics: Continue meropenem (pharmacy to help renally dose) as patient with recent history of ESBL E. coli. Continue vancomycin for bacteremia, pending cultures - monitor vital signs and labs Qualifiers: Sepsis type: sepsis due to unspecified organism Qualified Code(s): A41.9 - Sepsis, unspecified organism (2) Cystitis Current Visit: Yes Status: Acute Plan: Likely secondary to prostatic device. - patient with a history of multiple UTIs, most recently with the documented UTI with ESBL (3) Bacteremia Current Visit: Yes Status: Acute Plan: Pending final cultures and sensitivities. Patient will likely need PICC line placement with long-term IV antibiotics. Social work involved for residential facility placement as patient cannot go back to [facility] with PICC line and IV antibiotics. 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 Patient has been having intermittent right hip pain. - hip x-ray negative for abnormality or fractures (6) Fall Current Visit: Yes Status: Acute Qualifiers: Encounter type: initial encounter Qualified Code(s): W19.XXXA - Unspecified fall, initial encounter (7) Encephalopathy Current Visit: Yes Status: Acute Plan: Secondary to fall versus advancing dementia. Improving, mentation almost back to baseline - will continue to monitor mentation. (8) Congestive heart failure Current Visit: No Status: Chronic Qualifiers: Heart failure type: systolic Heart failure chronicity: chronic Qualified Code(s): I50.22 - Chronic systolic (congestive) heart failure (9) Atrial fibrillation Current Visit: No Status: Chronic Qualifiers: Atrial fibrillation type: paroxysmal Qualified Code(s): I48.0 - Paroxysmal atrial fibrillation (10) Alzheimer's dementia Current Visit: Yes Status: Chronic Qualifiers: Alzheimer's disease onset: unspecified onset Dementia behavioral disturbance: without behavioral disturbance Qualified Code(s): G30.9 - Alzheimer's disease, unspecified; F02.80 - Dementia in other diseases classified elsewhere without behavioral disturbance (11) 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 transplanted heart: [place] heart Associated angina: without angina Qualified Code(s): I25.10 - Atherosclerotic heart disease of [place] coronary artery without angina pectoris (13) CKD (chronic kidney disease), stage III Onset Date: 03/20/16 Current Visit: No Status: Chronic (14) Diabetes mellitus Onset Date: 09/26/15 Current Visit: No Status: Chronic Qualifiers: Diabetes mellitus type: type 2 Diabetes mellitus mcc insulin use: without mcc use Diabetes mellitus complication status: with kidney complications Diabetes mellitus complication detail: with chronic kidney disease Chronic kidney disease stage: stage 3 (moderate) Qualified Code(s): E11.22 - Type 2 diabetes mellitus with diabetic chronic kidney disease; N18.3 - Chronic kidney disease, stage 3 (moderate) (15) Osteoarthritis, multiple sites Onset Date: 03/20/16 Current Visit: No Status: Chronic Qualifiers: Osteoarthritis type: unspecified Qualified Code(s): M15.9 - Polyosteoarthritis, unspecified (16) Unstageable pressure ulcer of heel Current Visit: No Status: Resolved Plan: Bilateral (17) Acute kidney injury Current Visit: Yes Status: Acute Plan: Acute on chronic kidney injury - creatinine above baseline, currently 3.16 - will continue IV fluids and continue to monitor kidney function - avoid nephrotoxic drugs - Plan DVT prophylaxis: Lovenox GI prophylaxis: None Diet: Heart healthy Disposition: pending symptomatic improvement along with cultures. Daughter states that it if no improvement with antibiotics in mentation, they may be considering hospice. We will continue to follow up. Social work consult consulted.
--- NOTE | 2018-11-09 12:28 | RAD REPORT ---
EXAM DESCRIPTION: RAD - Barium Swallow Modified - 11/09/2018 12:22 pm CLINICAL HISTORY: difficulty swallowing COMPARISON: <Comparisons> TECHNIQUE: The patient was given liquid, semi-solid and solid forms of barium. Lateral view fluorosc opic imaging was performed in conjunction with speech pathology service. FINDINGS: Pharngeal residue: vallecular mild qith all consistencies , mod-severe with azalia cracker coated with pudding , reduced to mild with multi dry swallows Other : mild - mod ues dysfunction Total fluoroscopy time: 4 minutes and 40 seconds
[2018-11-09] MEDS: VANCOMYCIN 2 GM in NA CHLORIDE 0.9% 500 ML IVPB SCH (18:00)
[2018-11-09] MEDS ORDERED: NITROGLYCERIN 0.4 MG/TAB SL PRN (18:32)
[2018-11-09] MEDS ORDERED: LACTULOSE 20 GM/30 ML UCUP PO PRN (18:32)
[2018-11-09] MEDS ORDERED: BISACODYL E.C. 5 MG TAB PO PRN (18:32)
[2018-11-09] MEDS: HOME MED 1 EA UNK (Cyclosporine [Restasis] 1 DROP) EACH EYE SCH (20:00)
[2018-11-09] MEDS: DOCUSATE NA/SENNA CONC 1 TAB PO SCH (20:57)
[2018-11-09] MEDS: METOPROLOL XL 25 MG TAB PO SCH (20:57)
[2018-11-09] MEDS ORDERED: VIT A PO SCH (21:00)
[2018-11-09] MEDS ORDERED: ZINC PO SCH (21:00)
[2018-11-09] MEDS ORDERED: VIT E PO SCH (21:00)
[2018-11-09] MEDS ORDERED: VIT C PO SCH (21:00)
[2018-11-09] MEDS ORDERED: COPPER PO SCH (21:00)
[2018-11-10] MEDS ORDERED: NACHLORIDE 0.45% 1,000 ML IV SCH (03:00)
[2018-11-10] MEDS: PANTOPRAZOLE 40MG TABLET PO SCH (05:31)
[2018-11-10] MEDS: Meropenem 500 MG in NA CHLORIDE 0.9% 100 ML IV SCH (05:31)
[2018-11-10 06:11] LABS: Absolute Lymphocytes (CBC) 0.8 K/uL (0.7-4.9); Basophils % 0.4 % (0-1.3); Hematocrit 29.8 % (39.6-49.0); Lymphocytes % 7.5 % (15.3-44.8); RBC Red Blood Cell Count 3.32 M/uL (4.33-5.43)
[2018-11-10 06:39] LABS: Potassium 3.6 mmol/L (3.5-5.1)
[2018-11-10 06:40] LABS: Albumin 2.3 g/dL (3.4-5.0); Bilirubin Total 0.4 mg/dL (0.2-1.0); Magnesium 2.1 mg/dL (1.8-2.4); Phosphorus 2.9 mg/dL (2.5-4.9); Protein, Total 6.2 g/dL (6.4-8.2)
[2018-11-10] MEDS ORDERED: GLUCAGON 1 MG/VIAL IM PRN (07:49)
[2018-11-10] MEDS ORDERED: D50W 25 GM/50 ML SYRINGE IV PRN (07:49)
[2018-11-10] MEDS ORDERED: FUROSEMIDE 20 MG/ 2ML VIAL IV ONE (07:53)
--- NOTE | 2018-11-10 08:49 | RAD REPORT ---
EXAM DESCRIPTION: RAD - Chest Single View - 11/10/2018 8:25 am CLINICAL HISTORY: CHF Chest pain. COMPARISON: Chest Single View dated 11/07/2018; Chest Single View dated 08/28/2018; Chest Pa And Lat ( 2 Views) dated 05/01/2018; Chest Single View dated 03/24/2016 FINDINGS: Portable technique limits examination quality. Subsegmental atelectasis is present in the right lung base with elevated right hemidiaphragm. The hea rt is mildly enlarged in size with a single lead pacer device present. Sternotomy wires present. Aort ic atherosclerosis. IMPRESSION: Moderate right lower lobe subsegmental atelectasis with elevated right hemidiaphragm.
[2018-11-10] MEDS: DOCUSATE NA/SENNA CONC 1 TAB PO SCH ×3 (09:00→21:00)
[2018-11-10] MEDS ORDERED: POTASSIUM 25 MEQ EFFERV TAB PO ONE (09:00)
[2018-11-10] MEDS ORDERED: RIVASTIGMINE 4.6 MG/24 HR PATCH TD SCH (09:00)
[2018-11-10] MEDS: POTASSIUM CL SA 10 MEQ TAB PO SCH (09:00)
[2018-11-10] MEDS: HOME MED 1 EA UNK (Cyclosporine [Restasis] 1 DROP) EACH EYE SCH (09:00)
[2018-11-10] MEDS ORDERED: RIVAROXABAN 10 MG TABLET PO SCH (09:00)
--- NOTE | 2018-11-10 09:42 | PN ---
Date of Progress Note: 11/10/2018 Subjective: Patient was seen this morning. He was lying in bed, awake, alert, not in any distress. Nurse last night was concerned about some tachypnea that was noted on vital signs and the hospitalis t examined him last night, found his lungs were clear and I examined this morning as well. Since I s aw him last time, he has significantly declined. He is not ambulating anymore. Every time I saw him at the office, either he was ambulating using walker or was in a wheelchair, but since last hospital admission, his condition has been declining. Today with 2 peoples assistance, the patient was not a ble to sit up in the bed and has significant generalized pain with change of position and was noted t o have contracture of lower extremities, hip, and knees. He also has decubitus ulcers on both heels, left medial ankle, and sacrococcygeal region. Physical Examination: Vital Signs: Reviewed. HEENT: Unremarkable. Lungs: Minimum basal rales noted, especially left lung. Heart: Sounds normal. Abdomen: Soft. Bowel sounds normal. No guarding, rigidity, tenderness, distention. Extremities: No leg edema. Skin: Patient has 2 small stage II decubitus ulcers on both side of midline about 1 to 2 cm in size and left medial ankle has probably 3 to 4 mm stage II decubitus area which has a scab over it. No op en wound. No drainage. No surrounding redness, discharge, swelling. Right lateral heel has either stage II to stage III decubitus in form of dry black eschar formation of the right lateral heel. Lef t lateral heel what it appears is dry skin peeling off and there is no evidence of any decubitus ther e at this point, but I suspect that he probably had a blister type of decubitus that has healed now. Neuro: Significant generalized weakness noted. No focal neurological deficit. Laboratory Data: White count 10.2, hemoglobin 9.8, platelets 151. Sodium 146, potassium 3.6, chlori de 114, bicarb 25, BUN 39, creatinine 1.47, glucose 145. Liver function tests unremarkable. His van comycin trough level yesterday 7.5. Blood culture, gram-positive cocci, Staphylococcus coagulase pos itive, definite identification and sensitivity result pending. Urine culture negative. Impression: 1.Sepsis, gram-positive cocci. 2.Decubitus ulcer. 3.Debility. 4.Generalized weakness. 5.Chronic kidney disease, stage 3. 6.Diabetes mellitus. 7.Anemia. 8.Coronary artery disease. 9.Chronic systolic congestive heart failure. 10.Alzheimer's disease, late stage. Plan: We will go ahead and continue current medications. Continue current antibiotics. We will con carlin Lopez from General surgery to provide assistance with management of decubitus ulcers. We will go ahead and give him 1 dose of Lasix IV this morning. He is currently on meropenem and vancom ycin. We will continue those and depending on the wound culture report, we will make final decision on appropriate choice of antibiotics. The patient's overall prognosis is poor. I did talk to [facility] this morning and prior to this admission, the patient's family was thinking about starting h ospice care for him and it is very appropriate that upon discharge from the hospital, family would li ke for him to go back to [facility] and we can assist with hospice care arrangem ents at that time. Overall, prognosis is poor and the patient has advanced directive of do not resus citate in place. We will manage diabetes with sliding scale insulin. SANTIAGO/MODL Voice ID: [id number] Report ID: [id number]
[2018-11-10] MEDS: OCUVITE (VIT A,C & E/LUTEIN/MINERAL) TABLET PO SCH (10:06)
[2018-11-10] MEDS: SOLIFENACIN SUCCIN 5 MG TAB PO SCH (10:06)
[2018-11-10] MEDS: RANITIDINE 150 MG TABLET PO SCH (10:06)
[2018-11-10] MEDS: VITAMIN D 1000 UNIT TAB PO SCH (10:06)
[2018-11-10] MEDS: METOPROLOL XL 25 MG TAB PO SCH ×2 (10:07→21:32)
[2018-11-10] MEDS: LISINOPRIL 5 MG TAB PO SCH (10:07)
[2018-11-10] MEDS: MULTIVITAMIN TAB PO SCH (10:08)
[2018-11-10] MEDS: LACTOBACILLUS/ACIDOPHILUS TAB PO SCH (10:09)
[2018-11-10] MEDS: INSULIN -REGULAR HUMAN 50 UNIT/0.5 ML ML SQ SCH ×3 (11:30→21:00)
[2018-11-10] MEDS: RIVASTIGMINE TOP SCH (16:43)
[2018-11-10] MEDS: ALBUTEROL 2.5 MG/3 ML NEB SOL NEB SCH ×3 (17:10→20:15)
[2018-11-10] MEDS ORDERED: ALBUTEROL 2.5 MG/3 ML NEB SOL ONE (17:42)
--- NOTE | 2018-11-10 17:48 | RAD REPORT ---
EXAM DESCRIPTION: RAD - Chest Single View - 11/10/2018 5:32 pm CLINICAL HISTORY: PICC line placement COMPARISON: November 10 FINDINGS: Portable chest was obtained following placement of a right upper extremity PICC line. The catheter tip is in the distal SVC IMPRESSION: Right upper extremity PICC line is in place with the tip in the distal SVC. Remainder th e chest is stable.
[2018-11-10] MEDS: MEDIHONEY 44 ML TOPICAL TUBE TOP SCH (18:15)
[2018-11-10] MEDS: ATORVASTATIN 40 MG TAB PO SCH (21:33)
--- NOTE | 2018-11-10 22:19 | CON ---
Date of Consultation: 11/10/2018 Diagnoses: Sepsis, urinary tract infection, multiple decubitus ulcers. History Of Present Illness: This is a case of an 88-year-old patient, admitted to the hospital with above diagnosis. During the process found to have also a decubitus ulcer with a necrotic tissue pres ent and a surgical consult was obtained for evaluation and treatment. Most of the information is obt ained from the chart and the primary doctor, Dr. Bourne, since the patient cannot give an accurate info rmation. Allergies: MORPHINE. Social History: He does not smoke. He does not drink alcohol. Past Medical History: Alzheimer, adenocarcinoma of the prostate, atrial fibrillation, myocardial inf arction, osteoarthritis, pneumonia. Medications: Reviewed; included metformin, ranitidine, Xarelto. Review of Systems: Ten points otherwise unremarkable. Physical Examination: General: Patient is awake and alert. Cannot give much information, but he looks not in any distress . Chest: Clear. Abdomen: Soft and depressible. No guarding or rebound. Skin: The patient has a stage 3 decubitus ulcer on the sacrum. Necrotic tissue present with some br oken blisters. Bilateral lower extremity and the heel, patient has also broken blister with stage 3 decubitus ulcer present, mild erythema present to his bilateral heels. Dorsalis pedis pulses bilater ally are diminished, but present with no cyanosis. Assessment: This is an 88-year-old patient with decubitus ulcer, needs debridement. The benefits, a lternatives, and risks were fully explained to the patient and the family, also gave us consent after explaining the benefits, alternatives, and risks, which include but are not limited to infection, bl eeding, damage to adjacent structures, anesthesia complication, recurrence, NM, and even . Also , the patient's daughter states that obviously last time when he had some anesthesia, she believes hi s mental status or memory somehow got affected. In this case, we are going to try to do this under l ocal anesthetic. Anesthesia will decide about some sedation. We are going to do this without anesth esia. I discussed the case with Dr. Bourne, but we going to bring him to place where we have better li ghting, better instrument to take care of this ulcers, improve them, and then move him back to the wi onc. They agree with the plan. HM/MODL Voice ID: [id number] Report ID: [id number]
[2018-11-11] MEDS: ALBUTEROL 2.5 MG/3 ML NEB SOL NEB SCH ×4 (01:10→20:20)
[2018-11-11 04:40] LABS: Absolute Lymphocytes (CBC) 0.9 K/uL (0.7-4.9); Basophils % 0.2 % (0-1.3); Hematocrit 30.8 % (39.6-49.0); Lymphocytes % 8.9 % (15.3-44.8); MPV 10.7 fL (7.6-11.3)
[2018-11-11 05:01] LABS: Magnesium 2.1 mg/dL (1.8-2.4); Potassium 3.1 mmol/L (3.5-5.1)
[2018-11-11] MEDS: PANTOPRAZOLE 40MG TABLET PO SCH (05:12)
[2018-11-11] MEDS: VANCOMYCIN 2 GM in NA CHLORIDE 0.9% 500 ML IVPB SCH (05:27)
[2018-11-11] MEDS: KCL 20 MEQ/100 mL IVPB 20 MEQ/100 ML BAG IV SCH ×2 (05:57→07:20)
[2018-11-11] MEDS ORDERED: KCL 20 MEQ/100 mL IVPB 20 MEQ/100 ML BAG IV SCH ×2 (06:00→07:00)
[2018-11-11] MEDS: INSULIN -REGULAR HUMAN 50 UNIT/0.5 ML ML SQ SCH ×4 (08:49→20:34)
[2018-11-11] MEDS: RIVASTIGMINE TOP SCH (08:51)
[2018-11-11] MEDS: MEDIHONEY 44 ML TOPICAL TUBE TOP SCH (09:00)
[2018-11-11] MEDS ORDERED: MIDAZOLAM HCL 2 MG/2 ML INJ ONE (10:01)
[2018-11-11] MEDS ORDERED: FENTANYL CITR 100 MCG/2 ML ONE (10:01)
[2018-11-11] MEDS ORDERED: ROCURONIUM 50 MG/5 ML VIAL IV ONE (10:01)
[2018-11-11] MEDS ORDERED: LIDOCAINE 2% MPF 5 ML VIAL ONE (10:01)
[2018-11-11] MEDS ORDERED: PROPOFOL 200 MG/20 ML VIAL IV ONE ×2 (10:01)
[2018-11-11] MEDS ORDERED: COLLAGENASE 30 GM OINTMENT TOP ONE (10:21)
[2018-11-11] MEDS: NA CHLORIDE 0.9% 1,000 ML ONE (10:27)
[2018-11-11] MEDS ORDERED: NS 0.9% VIAL 30 ML ONE (10:52)
[2018-11-11] MEDS ORDERED: Phenylephrine HCl 10 MG/ML 1 ML VIAL ONE (10:53)
--- NOTE | 2018-11-11 12:01 | P.BOP ---
Preoperative diagnosis: sacral and bilateral heel necrotic ulcer Postoperative diagnosis: same Primary procedure: Excisional debridment down to subQ : 1. right heel 6x7cm Secondary procedure: 2. left heel 3x3cm, 3. sacral 3x3cm Estimated blood loss: <5cc Specimen: necrotic tissue , culture Findings: as above Anesthesia: Local Complications: None Transferred to: Recovery Room Condition: Good
[2018-11-11] MEDS: POTASSIUM CL SA 10 MEQ TAB PO SCH (12:49)
[2018-11-11] MEDS: SOLIFENACIN SUCCIN 5 MG TAB PO SCH (12:50)
[2018-11-11] MEDS: METOPROLOL XL 25 MG TAB PO SCH ×2 (12:50→20:29)
[2018-11-11] MEDS: MULTIVITAMIN TAB PO SCH (12:50)
[2018-11-11] MEDS: DOCUSATE NA/SENNA CONC 1 TAB PO SCH ×2 (12:50→20:29)
[2018-11-11] MEDS: LACTOBACILLUS/ACIDOPHILUS TAB PO SCH (12:51)
[2018-11-11] MEDS: OCUVITE (VIT A,C & E/LUTEIN/MINERAL) TABLET PO SCH (12:51)
[2018-11-11] MEDS: LISINOPRIL 5 MG TAB PO SCH (12:51)
[2018-11-11] MEDS: RANITIDINE 150 MG TABLET PO SCH (12:52)
[2018-11-11] MEDS: VITAMIN D 1000 UNIT TAB PO SCH (12:52)
[2018-11-11] MEDS: RIVAROXABAN 20 MG TABLET PO SCH (13:07)
[2018-11-11] MEDS ORDERED: POTASSIUM CL SA 10 MEQ TAB PO ONE (15:31)
[2018-11-11] MEDS ORDERED: POTASSIUM 25 MEQ EFFERV TAB PO ONE (16:00)
[2018-11-11] MEDS ORDERED: MEPERIDINE HCL 25 MG/0.5 ML IV PRN (18:19)
[2018-11-11] MEDS ORDERED: ONDANSETRON 4 MG/2 ML VIAL IV PRN (18:19)
[2018-11-11] MEDS: ATORVASTATIN 40 MG TAB PO SCH (20:29)
--- NOTE | 2018-11-11 22:14 | OP ---
Date of Procedure: 11/11/2018 Surgeon: Walt Lopez MD Preoperative Diagnosis: Sacral and bilateral heel necrotic pressure ulcers, stage 3. Postoperative Diagnosis: Sacral and bilateral heel necrotic pressure ulcers, stage 3. Procedures: 1.Excisional debridement down to subcutaneous tissue of the right heel decubitus ulcer, 6 x 7 cm. 2.Excisional debridement down to subcutaneous tissue of a left heel decubitus ulcer, 3 x 3 cm. 3.Excision and debridement down to subcutaneous of a sacral decubitus ulcer, 3 x 3 cm. Specimens: Necrotic tissue and culture. Anesthesia: Local. They have some sedation given by the anesthesiologist. Indications: This is a case of an 88-year-old patient with multiple medical problems, limitations on the way he moved and he is bedridden. Also, patient admitted with sepsis. He had some decubitus ul cer with necrotic tissue. I discussed the case with the primary doctor. Need to be cleaned properly . Patient taken to the OR for that. With that condition, anesthesia will try to minimize any anesth esia that sedation, probably MAC with local anesthetic because the patient have tenderness and we still need to do this procedure. Location was also was difficult but we were able to accommo date that with the help of the OR team. The benefits, alternatives, and risks fully explained and co nsent was obtained with benefits, alternatives, and risks including, but not limited to infection, bl eeding, damage to adjacent structures, anesthesia complication, nonhealing wound, AL, and even . The family and the patient understands the importance of offloading and nutrition. They signed a c onsent. The area of concern was marked by me and the patient in the holding room. Description Of Procedure: Patient was brought to the operating room, placed in supine position. ___ gave some sedation to the patient enough to put the local anesthetic in. The patient is stil l awake. We prepped and draped all the area of sacrum and bilateral heel in usual sterile fashion an d we proceeded to inject local anesthetic. After that, we followed that with the sharp incision of t he necrotic tissue with a knife, each one done individually, done in the same technique. Cultures we re obtained. Necrotic tissue was removed. An area was covered with wet-to-dry dressing. The patien t tolerated the procedure well. The patient was sent to recovery in stable condition. BILLIE/JENNIFER Voice ID: [id number] Report ID: [id number]
--- NOTE | 2018-11-12 00:34 | PN ---
Date of Progress Note: 11/11/2018 Subjective: Patient was seen this morning for followup. He was lying in bed, not in any distress. Denied any specific complaints this morning when I saw him. Objective: Vital Signs: Reviewed. HEENT: Examination unremarkable. Lungs: Clear to auscultation. No rhonchi or rales. Heart: Heart sounds normal. Abdomen: Soft. Bowel sounds normal. No guarding, rigidity, tenderness, distention. Extremities: No leg edema. Laboratory Data: Reviewed. Impression: 1.Septicemia, organism methicillin-resistant Staphylococcus aureus. 2.Infected decubitus ulcer. 3.Coronary artery disease. 4.Chronic systolic congestive heart failure. 5.Chronic kidney disease, stage 3. 6.Diabetes mellitus. 7.Generalized weakness. 8.Debility. Plan: Continue current antibiotics. We will continue to follow with Dr. Lopez. Today, patient w ill have debridement procedure for decubitus. I will see him tomorrow for followup. Details and ernst n were discussed with the patient, his , and daughter. SANTIAGO/MODL Voice ID: [id number] Report ID: [id number]
[2018-11-12] MEDS: ALBUTEROL 2.5 MG/3 ML NEB SOL NEB SCH ×4 (01:20→20:00)
[2018-11-12] MEDS: PANTOPRAZOLE 40MG TABLET PO SCH (05:45)
[2018-11-12 06:17] LABS: Potassium 3.4 mmol/L (3.5-5.1)
[2018-11-12] MEDS: DOCUSATE NA/SENNA CONC 1 TAB PO SCH ×2 (07:51→19:37)
[2018-11-12] MEDS ORDERED: POTASSIUM 25 MEQ EFFERV TAB PO ONE (09:00)
[2018-11-12] MEDS: MEDIHONEY 44 ML TOPICAL TUBE TOP SCH (09:00)
[2018-11-12] MEDS: MULTIVITAMIN TAB PO SCH (09:05)
[2018-11-12] MEDS: SOLIFENACIN SUCCIN 5 MG TAB PO SCH (09:05)
[2018-11-12] MEDS: POTASSIUM CL SA 10 MEQ TAB PO SCH (09:05)
[2018-11-12] MEDS: METOPROLOL XL 25 MG TAB PO SCH ×2 (09:05→21:00)
[2018-11-12] MEDS: OCUVITE (VIT A,C & E/LUTEIN/MINERAL) TABLET PO SCH (09:05)
[2018-11-12] MEDS: LACTOBACILLUS/ACIDOPHILUS TAB PO SCH (09:05)
[2018-11-12] MEDS: RANITIDINE 150 MG TABLET PO SCH (09:05)
[2018-11-12] MEDS: RIVAROXABAN 20 MG TABLET PO SCH (09:05)
[2018-11-12] MEDS: LISINOPRIL 5 MG TAB PO SCH (09:05)
[2018-11-12] MEDS: VITAMIN D 1000 UNIT TAB PO SCH (09:05)
[2018-11-12] MEDS: RIVASTIGMINE TOP SCH (09:06)
[2018-11-12] MEDS: INSULIN -REGULAR HUMAN 50 UNIT/0.5 ML ML SQ SCH ×4 (09:07→21:00)
[2018-11-12 16:45] LABS: Potassium 3.9 mmol/L (3.5-5.1)
[2018-11-12] MEDS: VANCOMYCIN 2 GM in NA CHLORIDE 0.9% 500 ML IVPB SCH (17:03)
--- NOTE | 2018-11-12 20:48 | PN ---
Date of Progress Note: 11/12/2018 Subjective: Patient was seen this morning for followup. He was lying in bed, not in distress. He l ooks better this morning compared to last couple of days. Objective: Vital Signs: Reviewed. Denied any complaints. HEENT: Examination unremarkable. Lungs: Clear to auscultation. Heart: Sounds normal. Abdomen: Soft. Bowel sounds normal. No guarding, rigidity, tenderness, distention. Extremities: No leg edema. Labs: Reviewed. Impression: 1.Septicemia, organism methicillin-resistant Staphylococcus aureus. 2.Infected decubitus ulcer, organism methicillin-resistant Staphylococcus aureus and Enterococcus fa ecalis. 3.Chronic kidney disease, stage 3. 4.Diabetes mellitus. 5.Generalized weakness. 6.Debility. 7.Alzheimer disease. Plan: We will continue current medication antibiotic, which is vancomycin. I did discuss with inez donohue's family member this morning. Plan is to continue IV antibiotics in the hospital; and sometime ne xt week our plan is to discharge the patient to go to [facility] facility as he will not be able to go back to [facility] because of his MRSA infection. Upon discharge from the hospital, the patient to be admitted to hospice care and patient's family has selected [facility]. Social Service to assist patient with discharge planning. SANTIAGO/MODL Voice ID: [id number] Report ID: [id number]
[2018-11-12] MEDS: ATORVASTATIN 40 MG TAB PO SCH (21:00)
[2018-11-13] MEDS: ALBUTEROL 2.5 MG/3 ML NEB SOL NEB SCH ×4 (02:00→20:00)
[2018-11-13] MEDS: PANTOPRAZOLE 40MG TABLET PO SCH (05:18)
[2018-11-13 06:21] LABS: Absolute Lymphocytes (CBC) 1.5 K/uL (0.7-4.9); Basophils % 0.2 % (0-1.3); Hematocrit 32.5 % (39.6-49.0); Lymphocytes % 9.2 % (15.3-44.8); MPV 10.8 fL (7.6-11.3); RBC Red Blood Cell Count 3.59 M/uL (4.33-5.43)
[2018-11-13 06:24] LABS: Magnesium 2.4 mg/dL (1.8-2.4); Potassium 3.6 mmol/L (3.5-5.1)
[2018-11-13] MEDS: INSULIN -REGULAR HUMAN 50 UNIT/0.5 ML ML SQ SCH ×4 (07:30→21:00)
[2018-11-13] MEDS ORDERED: Levofloxacin500mg IV 500 MG/100 ML BAG IV ONE (07:30)
[2018-11-13] MEDS: POTASSIUM CL SA 10 MEQ TAB PO SCH (08:21)
[2018-11-13] MEDS: METOPROLOL XL 25 MG TAB PO SCH ×2 (08:22→21:36)
[2018-11-13] MEDS: LISINOPRIL 5 MG TAB PO SCH (08:22)
[2018-11-13] MEDS: RIVAROXABAN 20 MG TABLET PO SCH (08:22)
[2018-11-13] MEDS: MULTIVITAMIN TAB PO SCH (08:22)
[2018-11-13] MEDS: VITAMIN D 1000 UNIT TAB PO SCH (08:22)
[2018-11-13] MEDS: SOLIFENACIN SUCCIN 5 MG TAB PO SCH (08:22)
[2018-11-13] MEDS: OCUVITE (VIT A,C & E/LUTEIN/MINERAL) TABLET PO SCH (08:22)
[2018-11-13] MEDS: LACTOBACILLUS/ACIDOPHILUS TAB PO SCH (08:22)
[2018-11-13] MEDS: RIVASTIGMINE TOP SCH (08:22)
[2018-11-13] MEDS: DOCUSATE NA/SENNA CONC 1 TAB PO SCH ×2 (08:24→21:00)
[2018-11-13] MEDS: MEDIHONEY 44 ML TOPICAL TUBE TOP SCH ×2 (08:24→21:30)
[2018-11-13] MEDS: RANITIDINE 150 MG TABLET PO SCH (08:24)
[2018-11-13] MEDS ORDERED: POTASSIUM CL SA 10 MEQ TAB PO ONE (09:00)
--- NOTE | 2018-11-13 18:48 | PN ---
Date of Progress Note: 11/13/2018 Subjective: Patient was seen this morning for followup. He was lying in bed, not in distress. Objective: Vital Signs: Reviewed. HEENT: Unremarkable. Lungs: Clear to auscultation. Heart: Sounds normal. Abdomen: Soft. Bowel sounds normal. No guarding, rigidity, tenderness, or distention. Extremities: No leg edema. Laboratory Data: White count has gone up to 16 today with hemoglobin 10.9 and platelets 261. Sodium 148, potassium 3.6, chloride 114, bicarb 27, BUN 44, creatinine 2.05, glucose 162. Impression: 1.Multiple decubitus ulcer, infected, organism methicillin-resistant Staphylococcus aureus. 2.Sepsis, organism methicillin-resistant Staphylococcus aureus. 3.Volume depletion. 4.Anemia. 5.Coronary artery disease. 6.Chronic systolic congestive heart failure. 7.Debility. Plan: We will continue current antibiotic, which is vancomycin. We will go ahead and add Levaquin p er order 500 mg IV today and then 250 mg IV daily from tomorrow. I have ordered the patient to recei ve 10 ounces of water 4 times a day and we will see how that helps his volume depletion problem that is manifested with elevated sodium and chloride. I will see him tomorr ow for followup. SANTIAGO/MODL Voice ID: [id number] Report ID: [id number]
[2018-11-13] MEDS: ENSURE HIGH PROTEIN 237 ML CAN PO SCH (21:29)
[2018-11-13] MEDS: PROMOD 30 ML DOSE PO SCH (21:29)
[2018-11-13] MEDS: ATORVASTATIN 40 MG TAB PO SCH (21:36)
[2018-11-14] MEDS: ALBUTEROL 2.5 MG/3 ML NEB SOL NEB SCH ×4 (01:30→20:00)
[2018-11-14 05:49] LABS: Absolute Lymphocytes (CBC) 1.1 K/uL (0.7-4.9); Basophils % 0.6 % (0-1.3); Hematocrit 31.8 % (39.6-49.0); Lymphocytes % 7.9 % (15.3-44.8); MPV 9.9 fL (7.6-11.3); RBC Red Blood Cell Count 3.53 M/uL (4.33-5.43)
[2018-11-14] MEDS: PANTOPRAZOLE 40MG TABLET PO SCH (06:00)
[2018-11-14] MEDS ORDERED: VANCOMYCIN 1.75 GM in NA CHLORIDE 0.9% 500 ML IVPB SCH (06:00)
[2018-11-14 06:05] LABS: Potassium 3.6 mmol/L (3.5-5.1)
[2018-11-14] MEDS: POTASSIUM CL SA 10 MEQ TAB PO SCH (07:52)
[2018-11-14] MEDS: LISINOPRIL 5 MG TAB PO SCH (09:00)
[2018-11-14] MEDS: PROMOD 30 ML DOSE PO SCH ×2 (09:00→20:16)
[2018-11-14] MEDS: RANITIDINE 150 MG TABLET PO SCH (09:00)
[2018-11-14] MEDS: RIVAROXABAN 20 MG TABLET PO SCH (09:00)
[2018-11-14] MEDS: ENSURE HIGH PROTEIN 237 ML CAN PO SCH ×2 (09:00→20:17)
[2018-11-14] MEDS ORDERED: POTASSIUM CL SA 10 MEQ TAB PO ONE (09:00)
[2018-11-14] MEDS ORDERED: GLUCAGON 1 MG/VIAL IM PRN (09:17)
[2018-11-14] MEDS ORDERED: D50W 25 GM/50 ML SYRINGE IV PRN (09:17)
[2018-11-14] MEDS: NACHLORIDE 0.45% 1,000 ML IV SCH (10:06)
[2018-11-14] MEDS: DOCUSATE NA/SENNA CONC 1 TAB PO SCH ×2 (10:06→21:00)
[2018-11-14] MEDS: VITAMIN D 1000 UNIT TAB PO SCH (10:06)
[2018-11-14] MEDS: OCUVITE (VIT A,C & E/LUTEIN/MINERAL) TABLET PO SCH (10:07)
[2018-11-14] MEDS: METOPROLOL XL 25 MG TAB PO SCH ×2 (10:07→20:22)
[2018-11-14] MEDS: SOLIFENACIN SUCCIN 5 MG TAB PO SCH (10:07)
[2018-11-14] MEDS: Levofloxacin 250mg IV 250 MG/50 ML BAG IV SCH (10:08)
[2018-11-14] MEDS: MULTIVITAMIN TAB PO SCH (10:08)
[2018-11-14] MEDS: LACTOBACILLUS/ACIDOPHILUS TAB PO SCH (10:08)
[2018-11-14] MEDS: INSULIN -REGULAR HUMAN 50 UNIT/0.5 ML ML SQ SCH ×4 (10:08→20:33)
[2018-11-14] MEDS: RIVASTIGMINE TOP SCH (10:09)
[2018-11-14] MEDS: INSULIN GLARGINE 100 UNITS/ML SQ SCH (10:36)
--- NOTE | 2018-11-14 14:26 | PN ---
Date of Progress Note: 11/14/2018 Subjective: Patient was seen this morning for followup. He was sleeping, easily arousable, not in a ny distress. No new complaints or problems reported by him. Nurse reported that the patient had onl y about 100 cc of urine in the Robertson catheter bag, but had approximately 800 cc as per bladder scan. The greenhouse assistant to evaluate the patient for Robertson catheter placement to see whether it was in t he right place or not and if it needed to be repositioned or changed. As I understand, rosalina griffin came and evaluated and found out that the catheter was not in place and once the catheter was matt ropriately placed, we were able to get immediately approximately 700 cc of urine. When I saw him, he probably had less than 50 cc urine in the bag and the urine looked very cloudy. Patient denies any abdominal pain, nausea, vomiting. Denies any shortness of breath. Objective: Vital Signs: Reviewed. HEENT: Unremarkable. Lungs: Clear to auscultation. Heart: Sounds normal. Abdomen: Soft. Bowel sounds normal. No guarding, rigidity, tenderness, or distention. Extremities: No leg edema. Laboratory Data: White count 13.6 today, hemoglobin 10.4, platelets 293. Sodium is 147, potassium 3 .6, chloride 113, bicarb 24, BUN 55, creatinine 2.52, glucose 250. His right heel wound culture is g rowing MRSA and pseudomonas. Sacral wound culture growing MRSA and Enterococcus faecalis. Impression: 1.Urinary retention. 2.Urinary tract infection. 3.Infected decubitus ulcer. 4.Sepsis, organism methicillin-resistant Staphylococcus aureus. 5.Acute kidney injury. 6.Anemia. Plan: We will go ahead and discontinue potassium supplement that the patient is on. Also, discontin ue lisinopril and Protonix in view of acute kidney injury. Considering patient's EGFR and creatinine clearance today, we will discontinue Xarelto because of increased risk of bleeding and patient has n ot received Xarelto for this morning. As of this evening, we will start him on Eliquis 2.5 mg twice a day. IV fluid was ordered to be started today. We will follow up on electrolytes, renal function, and blood count tomorrow. WBC count is improving. We will continue vancomycin and Levaquin per ord er. Renal ultrasound was ordered. We will follow up on that. Details were discussed with the patie nt's and patient. SANTIAGO/MODL Voice ID: [id number] Report ID: [id number]
--- NOTE | 2018-11-14 18:28 | RAD REPORT ---
EXAM DESCRIPTION: US - Renal Ultrasound-Complete - 11/14/2018 6:16 pm CLINICAL HISTORY: Acute renal insufficiency COMPARISON: 2008 FINDINGS: The right kidney measures 10 centimeters with a normal echotexture . 1 centimeters The left kidney measures 10 centimeters with a normal echotexture. Hydronephrosis is not seen. The bladder is decompressed has a Robertson catheter is in place. IMPRESSION: Unremarkable exam
[2018-11-14] MEDS: ATORVASTATIN 40 MG TAB PO SCH (20:16)
[2018-11-14] MEDS: APIXABAN 2.5 MG TABLET PO SCH (20:16)
[2018-11-14] MEDS: MEDIHONEY 44 ML TOPICAL TUBE TOP SCH (20:17)
[2018-11-15] MEDS: NACHLORIDE 0.45% 1,000 ML IV SCH (00:35)
[2018-11-15] MEDS: ALBUTEROL 2.5 MG/3 ML NEB SOL NEB SCH ×4 (02:00→19:45)
[2018-11-15 05:06] LABS: Absolute Lymphocytes (CBC) 1.4 K/uL (0.7-4.9); Basophils % 0.4 % (0-1.3); Hematocrit 29.8 % (39.6-49.0); Lymphocytes % 12.3 % (15.3-44.8); MPV 9.8 fL (7.6-11.3)
[2018-11-15 05:34] LABS: Magnesium 2.1 mg/dL (1.8-2.4)
[2018-11-15 05:55] LABS: Potassium 2.9 mmol/L (3.5-5.1)
[2018-11-15] MEDS: INSULIN -REGULAR HUMAN 50 UNIT/0.5 ML ML SQ SCH ×4 (09:16→21:00)
[2018-11-15] MEDS: KCL 20 MEQ/100 mL IVPB 20 MEQ/100 ML BAG IV SCH ×4 (09:17→23:42)
[2018-11-15] MEDS: RANITIDINE 150 MG TABLET PO SCH (09:17)
[2018-11-15] MEDS: INSULIN GLARGINE 100 UNITS/ML SQ SCH (09:17)
[2018-11-15] MEDS: RIVASTIGMINE TOP SCH (09:19)
[2018-11-15] MEDS: Levofloxacin 250mg IV 250 MG/50 ML BAG IV SCH (09:20)
[2018-11-15] MEDS: SOLIFENACIN SUCCIN 5 MG TAB PO SCH (09:21)
[2018-11-15] MEDS: VITAMIN D 1000 UNIT TAB PO SCH (09:21)
[2018-11-15] MEDS: OCUVITE (VIT A,C & E/LUTEIN/MINERAL) TABLET PO SCH (09:21)
[2018-11-15] MEDS: LACTOBACILLUS/ACIDOPHILUS TAB PO SCH (09:21)
[2018-11-15] MEDS: MULTIVITAMIN TAB PO SCH (09:22)
[2018-11-15] MEDS: APIXABAN 2.5 MG TABLET PO SCH ×2 (09:22→21:45)
[2018-11-15] MEDS: METOPROLOL XL 25 MG TAB PO SCH ×2 (09:23→21:45)
[2018-11-15] MEDS: DOCUSATE NA/SENNA CONC 1 TAB PO SCH ×2 (09:23→21:44)
[2018-11-15] MEDS: ENSURE HIGH PROTEIN 237 ML CAN PO SCH ×2 (09:42→22:02)
[2018-11-15] MEDS: PROMOD 30 ML DOSE PO SCH ×2 (09:43→22:02)
[2018-11-15] MEDS: D5W 1,000 ML IV SCH ×2 (10:36→23:10)
--- NOTE | 2018-11-15 15:54 | PN ---
Date of Progress Note: 11/15/2018 Subjective: Patient was seen this morning for followup. He was lying in bed, not in distress. Look s a lot better today than last few days. Daughter was at bedside. No new complaints/problems report ed. Objective: Vital Signs: Reviewed. HEENT: Unremarkable. Lungs: Clear to auscultation. Heart: Sounds normal. Abdomen: Soft. Bowel sounds normal. No guarding, rigidity, tenderness, or distention. Extremities: No leg edema. Laboratory Data: White count 11.4, hemoglobin 9.8, platelets 319. Sodium 151, potassium 2.9, chlori de 116, bicarb 25, BUN 48, creatinine 1.71, glucose 164. Magnesium 2.1. Impression: 1.Hypokalemia. 2.Volume depletion. 3.Hypernatremia. 4.Anemia. 5.Sepsis, organism methicillin-resistant Staphylococcus aureus. Plan: We will continue current antibiotics. Patient's urine appears a lot clear today. No evidence of any sediment in the urine and it is yellow in color. We will replace electrolytes per protocol a nd change IV fluid per order. I will see him tomorrow for followup. We will continue current antibi otics. Details were discussed with the patient's daughter. Plan is to possibly discharge him from ospital to go to snf facility, which is [facility] per family's choice. Hopefu lly, we can discharge him to go again on Friday, and the patient is to continue his antibiotic thera py at the group home, so he will initially go there on a skilled care. Subsequently, once the skil led care is completed, then my recommendation is for him to get admitted to hospice care. Patient's daughter understands and agrees, and she has been in communication with the hospice agency. SANTIAGO/MODL Voice ID: [id number] Report ID: [id number]
[2018-11-15] MEDS: MEDIHONEY 44 ML TOPICAL TUBE TOP SCH (21:00)
[2018-11-15] MEDS: ATORVASTATIN 40 MG TAB PO SCH (21:44)
[2018-11-16] MEDS: ALBUTEROL 2.5 MG/3 ML NEB SOL NEB SCH ×4 (01:40→20:00)
[2018-11-16] MEDS: ENSURE HIGH PROTEIN 237 ML CAN PO SCH ×2 (09:00→20:56)
[2018-11-16] MEDS: RIVASTIGMINE TOP SCH (09:00)
[2018-11-16] MEDS: PROMOD 30 ML DOSE PO SCH ×2 (09:00→20:57)
[2018-11-16] MEDS: INSULIN -REGULAR HUMAN 50 UNIT/0.5 ML ML SQ SCH ×4 (09:15→21:00)
[2018-11-16] MEDS: METOPROLOL XL 25 MG TAB PO SCH ×2 (09:16→20:55)
[2018-11-16] MEDS: APIXABAN 2.5 MG TABLET PO SCH ×2 (09:16→20:55)
[2018-11-16] MEDS: LACTOBACILLUS/ACIDOPHILUS TAB PO SCH (09:16)
[2018-11-16] MEDS: MULTIVITAMIN TAB PO SCH (09:16)
[2018-11-16] MEDS: INSULIN GLARGINE 100 UNITS/ML SQ SCH (09:17)
[2018-11-16] MEDS: OCUVITE (VIT A,C & E/LUTEIN/MINERAL) TABLET PO SCH (09:17)
[2018-11-16] MEDS: RANITIDINE 150 MG TABLET PO SCH (09:17)
[2018-11-16] MEDS: SOLIFENACIN SUCCIN 5 MG TAB PO SCH (09:17)
[2018-11-16] MEDS: DOCUSATE NA/SENNA CONC 1 TAB PO SCH ×2 (09:17→20:57)
[2018-11-16] MEDS: VITAMIN D 1000 UNIT TAB PO SCH (09:17)
[2018-11-16] MEDS: VANCOMYCIN 1.75 GM in NA CHLORIDE 0.9% 500 ML IVPB SCH (09:18)
[2018-11-16] MEDS: Levofloxacin 250mg IV 250 MG/50 ML BAG IV SCH (09:18)
[2018-11-16 10:39] LABS: Magnesium 1.7 mg/dL (1.8-2.4)
[2018-11-16] MEDS ORDERED: MAGNESIUM SULFATE 1 gm IVPB 1 GM/100 ML BAG IV ONE (12:00)
[2018-11-16] MEDS ORDERED: POTASSIUM 25 MEQ EFFERV TAB PO ONE ×2 (12:00→20:00)
[2018-11-16] MEDS: D5W 1,000 ML IV SCH (18:26)
--- NOTE | 2018-11-16 18:46 | PN ---
Date of Progress Note: 11/16/2018 Subjective: Patient was seen this morning for followup. He was lying in bed, not in distress. When I saw him, sleeping, arousable, did not communicate as well this morning as he was just waking up fr om sleep this morning. Objective: Vital Signs: Reviewed. HEENT: Unremarkable. Lungs: Clear to auscultation. Heart: Sounds normal. Abdomen: Soft. Bowel sounds normal. No guarding, rigidity, tenderness, distention. Extremities: No leg edema. Laboratory Data: His chemistry results from this morning are pending. Impression: 1.Sepsis, organism methicillin-resistant Staphylococcus aureus. 2.Infected decubitus ulcer. 3.Urinary tract infection. 4.Volume depletion. Plan: We will continue current medication. Follow up on blood work result. Continue current antibi otic, IV fluid and I will see him tomorrow for followup. Possible discharge to go to [facility] in next day or 2 days depending on the patient's condition. SANTIAGO/MODL Voice ID: [id number] Report ID: [id number]
[2018-11-16] MEDS: ATORVASTATIN 40 MG TAB PO SCH (20:54)
[2018-11-16] MEDS: MEDIHONEY 44 ML TOPICAL TUBE TOP SCH (20:58)
[2018-11-17] MEDS: ALBUTEROL 2.5 MG/3 ML NEB SOL NEB SCH ×4 (02:00→20:00)
[2018-11-17 05:46] LABS: Absolute Lymphocytes (CBC) 1.5 K/uL (0.7-4.9); Basophils % 0.3 % (0-1.3); Hematocrit 26.5 % (39.6-49.0); Lymphocytes % 9.6 % (15.3-44.8); MPV 9.3 fL (7.6-11.3); RBC Red Blood Cell Count 2.98 M/uL (4.33-5.43)
[2018-11-17 05:51] LABS: Magnesium 1.6 mg/dL (1.8-2.4); Potassium 3.2 mmol/L (3.5-5.1)
[2018-11-17] MEDS ORDERED: MAGNESIUM SULFATE 1 gm IVPB 1 GM/100 ML BAG IV ONE (06:44)
[2018-11-17] MEDS: INSULIN -REGULAR HUMAN 50 UNIT/0.5 ML ML SQ SCH ×4 (07:30→21:26)
[2018-11-17] MEDS: MULTIVITAMIN TAB PO SCH (08:11)
[2018-11-17] MEDS: LACTOBACILLUS/ACIDOPHILUS TAB PO SCH (08:11)
[2018-11-17] MEDS: SOLIFENACIN SUCCIN 5 MG TAB PO SCH (08:11)
[2018-11-17] MEDS: OCUVITE (VIT A,C & E/LUTEIN/MINERAL) TABLET PO SCH (08:11)
[2018-11-17] MEDS: METOPROLOL XL 25 MG TAB PO SCH ×2 (08:11→21:25)
[2018-11-17] MEDS: APIXABAN 2.5 MG TABLET PO SCH ×2 (08:11→21:25)
[2018-11-17] MEDS: VITAMIN D 1000 UNIT TAB PO SCH (08:11)
[2018-11-17] MEDS: RANITIDINE 150 MG TABLET PO SCH (08:11)
[2018-11-17] MEDS: INSULIN GLARGINE 100 UNITS/ML SQ SCH (08:12)
[2018-11-17] MEDS: RIVASTIGMINE TOP SCH (08:13)
[2018-11-17] MEDS: ENSURE HIGH PROTEIN 237 ML CAN PO SCH ×2 (08:13→21:26)
[2018-11-17] MEDS: DOCUSATE NA/SENNA CONC 1 TAB PO SCH ×2 (08:14→21:00)
[2018-11-17] MEDS: PROMOD 30 ML DOSE PO SCH ×2 (08:14→21:00)
--- NOTE | 2018-11-17 08:37 | RAD REPORT ---
EXAM DESCRIPTION: RAD - Chest Single View - 11/17/2018 7:47 am CLINICAL HISTORY: leukocytosis Chest pain. COMPARISON: Chest Single View dated 11/10/2018; Chest Single View dated 11/10/2018; Chest Single View dated 11/07/2018; Chest Single View dated 08/28/2018 FINDINGS: Portable technique limits examination quality. Elevated right hemidiaphragm is seen with mild improvement in right lung base aeration since comparat kaity study. The heart is upper limit normal in size sternotomy wires present. Right-sided PICC line is unchanged in position. Single lead left pacer device is noted.
[2018-11-17] MEDS ORDERED: Meropenem 1000 MG/VIAL IV SCH (09:00)
[2018-11-17] MEDS: Meropenem 1,000 MG in NA CHLORIDE 0.9% 100 ML IV SCH ×2 (09:01→21:25)
[2018-11-17] MEDS: KCL 20 MEQ/100 mL IVPB 20 MEQ/100 ML BAG IV SCH ×2 (09:05→11:11)
[2018-11-17 11:05] LABS: Urine Appearance CLOUDY; Urine Bilirubin NEGATIVE (NEG); Urine Blood 1+ (NEG); Urine Color YELLOW; Urine Glucose NEGATIVE (NEG); Urine Protein 1+ (NEG)
[2018-11-17 12:37] LABS: Urine Bacteria >50 /HPF (NONE SEEN); Urine Culture Reflex Order NOT NEEDED; Urine RBC <5 /HPF (NONE SEEN); Urine Yeast MANY (NONE SEEN)
[2018-11-17] MEDS: D5W 1,000 ML IV SCH (14:00)
[2018-11-17] MEDS: ATORVASTATIN 40 MG TAB PO SCH (21:25)
[2018-11-17] MEDS ORDERED: POTASSIUM CL SA 10 MEQ TAB PO ONE (21:41)
--- NOTE | 2018-11-18 00:08 | PN ---
Date of Progress Note: 11/17/2018 Objective: Patient was seen this morning for followup, lying in bed, not in distress. No new compla ints or problems reported by patient. Objective: Vital Signs: Reviewed. HEENT: Unremarkable. Lungs: Clear to auscultation. No rhonchi or rales. Heart: Sounds normal. Abdomen: Soft. Bowel sounds normal. No guarding, rigidity, tenderness, or distention. Extremities: No leg edema. Laboratory Data: White count today has gone up to 15.8, hemoglobin 8.7, platelets 271. Sodium 142, potassium 3.2, chloride 108, bicarb 28, BUN 29, creatinine 1.28, glucose 126, magnesium 1.6. Impression: 1.Infected decubitus ulcer. 2.Sepsis. 3.Urinary tract infection. 4.Hypokalemia. 5.Hypomagnesemia. 6.Volume depletion. 7.Anemia. 8.Coronary artery disease. Plan: Patient's WBC count has gone up. He is on vancomycin and Levaquin, these are culture specific antibiotics. Considering this increase in WBC count, we will do urinalysis, urine culture, blood cu lture x2, chest x-ray, and I have called Dr. Lopez this morning and details were discussed with mitesh torres about increase in WBC count and requested for him to evaluate his decubitus ulcers to make sure marely t he does not need any debridement with any concerns about infection and he will evaluate the patient today. Meanwhile, we will continue vancomycin and we will stop Levaquin and start patient on meropenem. Replace electrolyte per ethan humphrey SANTIAGO/MODL Voice ID: [id number] Report ID: [id number]
[2018-11-18] MEDS: ALBUTEROL 2.5 MG/3 ML NEB SOL NEB SCH ×4 (01:40→20:00)
[2018-11-18 05:44] LABS: Absolute Lymphocytes (CBC) 1.4 K/uL (0.7-4.9); Basophils % 0.3 % (0-1.3); Lymphocytes % 9.1 % (15.3-44.8); MPV 9.6 fL (7.6-11.3); RBC Red Blood Cell Count 2.93 M/uL (4.33-5.43)
[2018-11-18 05:47] LABS: Albumin 1.6 g/dL (3.4-5.0); Bilirubin Total 0.3 mg/dL (0.2-1.0); Magnesium 1.7 mg/dL (1.8-2.4); Potassium 3.1 mmol/L (3.5-5.1); Protein, Total 5.3 g/dL (6.4-8.2)
[2018-11-18] MEDS ORDERED: MAGNESIUM SULFATE 1 gm IVPB 1 GM/100 ML BAG IV ONE (06:16)
[2018-11-18] MEDS: KCL 20 MEQ/100 mL IVPB 20 MEQ/100 ML BAG IV SCH ×2 (07:04→09:24)
[2018-11-18] MEDS: INSULIN -REGULAR HUMAN 50 UNIT/0.5 ML ML SQ SCH ×4 (07:30→22:51)
[2018-11-18] MEDS: DOCUSATE NA/SENNA CONC 1 TAB PO SCH ×2 (09:00→21:00)
[2018-11-18] MEDS: COLLAGENASE 30 GM OINTMENT TOP SCH (09:00)
[2018-11-18] MEDS: PROMOD 30 ML DOSE PO SCH ×2 (09:00→22:24)
[2018-11-18] MEDS: RIVASTIGMINE TOP SCH (09:00)
[2018-11-18] MEDS: Meropenem 1,000 MG in NA CHLORIDE 0.9% 100 ML IV SCH ×2 (09:22→22:32)
[2018-11-18] MEDS: INSULIN GLARGINE 100 UNITS/ML SQ SCH (09:22)
[2018-11-18] MEDS: METOPROLOL XL 25 MG TAB PO SCH ×2 (09:25→22:25)
[2018-11-18] MEDS: MULTIVITAMIN TAB PO SCH (09:25)
[2018-11-18] MEDS: LACTOBACILLUS/ACIDOPHILUS TAB PO SCH (09:25)
[2018-11-18] MEDS: SOLIFENACIN SUCCIN 5 MG TAB PO SCH (09:25)
[2018-11-18] MEDS: OCUVITE (VIT A,C & E/LUTEIN/MINERAL) TABLET PO SCH (09:25)
[2018-11-18] MEDS: VITAMIN D 1000 UNIT TAB PO SCH (09:25)
[2018-11-18] MEDS: RANITIDINE 150 MG TABLET PO SCH (09:26)
[2018-11-18] MEDS: APIXABAN 2.5 MG TABLET PO SCH ×2 (09:26→22:25)
[2018-11-18] MEDS: ENSURE HIGH PROTEIN 237 ML CAN PO SCH ×2 (09:28→22:24)
[2018-11-18] MEDS: VANCOMYCIN 1.75 GM in NA CHLORIDE 0.9% 500 ML IVPB SCH (09:30)
[2018-11-18] MEDS: D5W 1,000 ML IV SCH ×2 (10:00→14:17)
[2018-11-18] MEDS ORDERED: KCL 20 MEQ/100 mL IVPB 20 MEQ/100 ML BAG IV SCH (20:00)
[2018-11-18] MEDS: ATORVASTATIN 40 MG TAB PO SCH (22:25)
--- NOTE | 2018-11-19 00:58 | PN ---
Date of Progress Note: 11/18/2018 Subjective: Patient was seen this morning for followup. He was lying in bed, not in distress. He d id not look as tired today as yesterday. No new complaints or problems reported by him. Objective: Vital Signs: Reviewed. HEENT: Examination unremarkable. Lungs: Clear to auscultation. Heart: Sounds normal. Abdomen: Soft. Bowel sounds normal. No guarding, rigidity, tenderness, or distention. Extremities: No leg edema. Laboratory Data: White count 15.6 today, yesterday it was 15.8, hemoglobin 8.7, and platelets 280. Sodium 140, potassium 3.1, chloride 106, bicarb 29, BUN 29, creatinine 1.34 glucose 197, magnesium 1. 7. SGOT 40, SGPT 36, alkaline phosphatase 68. Impression: 1.Sepsis, organism methicillin-resistant Staphylococcus aureus. 2.Infected decubitus ulcer. 3.Urinary tract infection. 4.Hypokalemia. 5.Hypomagnesemia. 6.Anemia. Plan: We will continue current medications. Replace electrolyte per protocol. Continue IV fluid. Volume depletion problem has improved. We will continue current antibiotic, which is vancomycin and meropenem. Follow up on culture results. Repeat blood work tomorrow. I will see him tomorrow for tiera pride. SANTIAGO/MODL Voice ID: [id number] Report ID: [id number]
[2018-11-19] MEDS: ALBUTEROL 2.5 MG/3 ML NEB SOL NEB SCH ×4 (02:00→19:40)
[2018-11-19] MEDS: D5W 1,000 ML IV SCH ×2 (06:00→08:57)
[2018-11-19 06:21] LABS: Absolute Lymphocytes (CBC) 1.6 K/uL (0.7-4.9); Basophils % 0.3 % (0-1.3); Hematocrit 26.7 % (39.6-49.0); Lymphocytes % 10.9 % (15.3-44.8); RBC Red Blood Cell Count 3.02 M/uL (4.33-5.43)
[2018-11-19 06:33] LABS: Magnesium 1.8 mg/dL (1.8-2.4); Potassium 3.2 mmol/L (3.5-5.1)
--- NOTE | 2018-11-19 08:35 | RAD REPORT ---
EXAM DESCRIPTION: RAD - Abdomen 1 View (KUB) - 11/19/2018 8:20 am CLINICAL HISTORY: Abdominal pain, possible ileus COMPARISON: None. FINDINGS: Patient was unable to hold his breath for the examination. There is substantial motion art ifact throughout both views. Moderate amount of contrast opacified stool is present in the right-side colon. Small quantity of con trast opacified stool seen in the left side of the colon. Multiple air-filled large and small bowel l oops are present. Pattern is certainly consistent with an ileus. Bowel obstruction is considered a le sser in likelihood. No evidence for free air or pneumatosis. No suspicious calcifications. Lumbar spine degenerative changes are present. IMPRESSION: Abdomen examination the significant motion limitation. Bowel pattern is consistent with ileus. Given the degree of motion, bowel obstruction is not excluded but not considered likely. Free air and pneumatosis are not identified.
[2018-11-19] MEDS: KCL 20 MEQ/100 mL IVPB 20 MEQ/100 ML BAG IV SCH ×2 (08:53→11:55)
[2018-11-19] MEDS: Meropenem 1,000 MG in NA CHLORIDE 0.9% 100 ML IV SCH ×2 (08:54→20:48)
[2018-11-19] MEDS: INSULIN GLARGINE 100 UNITS/ML SQ SCH (08:54)
[2018-11-19] MEDS: SOLIFENACIN SUCCIN 5 MG TAB PO SCH (08:55)
[2018-11-19] MEDS: LACTOBACILLUS/ACIDOPHILUS TAB PO SCH (08:55)
[2018-11-19] MEDS: OCUVITE (VIT A,C & E/LUTEIN/MINERAL) TABLET PO SCH (08:55)
[2018-11-19] MEDS: APIXABAN 2.5 MG TABLET PO SCH ×2 (08:55→20:45)
[2018-11-19] MEDS: METOPROLOL XL 25 MG TAB PO SCH ×2 (08:55→20:45)
[2018-11-19] MEDS: RANITIDINE 150 MG TABLET PO SCH (08:55)
[2018-11-19] MEDS: DOCUSATE NA/SENNA CONC 1 TAB PO SCH ×2 (08:55→20:45)
[2018-11-19] MEDS: VITAMIN D 1000 UNIT TAB PO SCH (08:56)
[2018-11-19] MEDS: MULTIVITAMIN TAB PO SCH (08:56)
[2018-11-19] MEDS: COLLAGENASE 30 GM OINTMENT TOP SCH (08:58)
[2018-11-19] MEDS: PROMOD 30 ML DOSE PO SCH ×2 (08:58→20:48)
[2018-11-19] MEDS: ENSURE HIGH PROTEIN 237 ML CAN PO SCH ×2 (08:59→20:47)
[2018-11-19] MEDS: INSULIN -REGULAR HUMAN 50 UNIT/0.5 ML ML SQ SCH ×4 (08:59→21:00)
[2018-11-19] MEDS: RIVASTIGMINE TOP SCH (09:00)
[2018-11-19] MEDS ORDERED: MAGNESIUM SULFATE 1 gm IVPB 1 GM/100 ML BAG IV ONE (09:00)
[2018-11-19] MEDS: ATORVASTATIN 40 MG TAB PO SCH (20:45)
[2018-11-20] MEDS: ALBUTEROL 2.5 MG/3 ML NEB SOL NEB SCH ×4 (01:30→19:25)
--- NOTE | 2018-11-20 01:34 | PN ---
Date of Progress Note: 11/19/2018 Subjective: Patient was seen this morning for followup. No new complaints or problems reported by the patient. He was lying in bed, not in distress. Objective: Vital Signs: Reviewed. Heart: Sounds normal. Abdomen: Soft. No guarding, rigidity. Bowel sounds hypoactive. Abdomen appears to be distended. Extremities: No leg edema. Skin: Stage II sacral coccygeal decubitus noted. No evidence of discharge or bleeding. Laboratory Data: White count 14.3, hemoglobin 8.9, platelets 299. Sodium 137, potassium 3.2, chloride 105, bicarb 27, BUN 24, creatinine 1.23, glucose 160. Abdominal x-ray done after I saw him as I was concerned about possibility of ileus. X-ray did confirm presence of ileus. Patient had a bowel movement prior to my arrival this morning. Impression: 1. Ileus. 2. Sepsis; organism, methicillin-resistant Staphylococcus aureus. 3. Infected decubitus ulcer. 4. Urinary tract infection. 5. Coronary artery disease. 6. Anemia. 7. Volume depletion. Plan: We will continue current medication, IV fluid, IV antibiotics. Keep patient n.p.o. and we will repeat blood work tomorrow. I will see him tomorrow for followup. SANTIAGO/MODL Voice ID: [id number] Report ID: [id number] DAFNE
[2018-11-20] MEDS: D5W 1,000 ML IV SCH ×3 (02:00→22:00)
[2018-11-20] MEDS ORDERED: KCL 20 MEQ/100 mL IVPB 20 MEQ/100 ML BAG IV SCH ×2 (03:00→09:00)
[2018-11-20 06:28] LABS: Absolute Lymphocytes (CBC) 1.3 K/uL (0.7-4.9); Basophils % 0.4 % (0-1.3); Hematocrit 27.6 % (39.6-49.0); Lymphocytes % 8.6 % (15.3-44.8); MPV 9.8 fL (7.6-11.3); RBC Red Blood Cell Count 3.13 M/uL (4.33-5.43)
[2018-11-20 07:00] LABS: Magnesium 1.9 mg/dL (1.8-2.4); Potassium 3.6 mmol/L (3.5-5.1)
[2018-11-20] MEDS: INSULIN -REGULAR HUMAN 50 UNIT/0.5 ML ML SQ SCH ×4 (07:30→21:00)
[2018-11-20] MEDS: MULTIVITAMIN TAB PO SCH (09:00)
[2018-11-20] MEDS: PROMOD 30 ML DOSE PO SCH ×2 (09:00→21:00)
[2018-11-20] MEDS: RIVASTIGMINE TOP SCH (09:00)
[2018-11-20] MEDS: LACTOBACILLUS/ACIDOPHILUS TAB PO SCH (09:00)
[2018-11-20] MEDS: RANITIDINE 150 MG TABLET PO SCH (09:00)
[2018-11-20] MEDS: DOCUSATE NA/SENNA CONC 1 TAB PO SCH ×2 (09:20→21:39)
[2018-11-20] MEDS: Meropenem 1,000 MG in NA CHLORIDE 0.9% 100 ML IV SCH ×2 (09:20→21:41)
[2018-11-20] MEDS: VITAMIN D 1000 UNIT TAB PO SCH (09:20)
[2018-11-20] MEDS: COLLAGENASE 30 GM OINTMENT TOP SCH (09:20)
[2018-11-20] MEDS: SOLIFENACIN SUCCIN 5 MG TAB PO SCH (09:21)
[2018-11-20] MEDS: METOPROLOL XL 25 MG TAB PO SCH ×2 (09:21→21:39)
[2018-11-20] MEDS: OCUVITE (VIT A,C & E/LUTEIN/MINERAL) TABLET PO SCH (09:21)
[2018-11-20] MEDS: ENSURE HIGH PROTEIN 237 ML CAN PO SCH ×2 (09:23→21:00)
[2018-11-20] MEDS: INSULIN GLARGINE 100 UNITS/ML SQ SCH (09:42)
--- NOTE | 2018-11-20 10:08 | RAD REPORT ---
EXAM DESCRIPTION: RAD - Abdomen 1 View (KUB) - 11/20/2018 8:35 am CLINICAL HISTORY: Abdomen pain. FINDINGS: Air is present within mildly dilated small bowel which appears mildly diminished in calibe r since the prior exam Contrast is present within the right colon. These findings probably indicate improvement in an ileus.
[2018-11-20] MEDS: VANCOMYCIN 1.75 GM in NA CHLORIDE 0.9% 500 ML IVPB SCH (12:17)
[2018-11-20] MEDS: RIVAROXABAN 20 MG TABLET PO SCH (17:26)
--- NOTE | 2018-11-20 19:55 | PN ---
Date of Progress Note: 11/20/2018 Subjective: Patient was seen this morning for followup. He was sleeping, did not wake up, not in an y distress. Objective: Vital Signs: Reviewed. HEENT: Unremarkable. Lungs: Bilateral equal entry. Shallow breathing. Heart: Sounds normal. Abdomen: Soft. Bowel sounds slightly hypoactive, but better today than yesterday. Abdominal disten tion is better today than yesterday. Extremities: No leg edema. Laboratory Data: White count 15.5, hemoglobin 9.1, platelets 354. Sodium 137, potassium 3.6, chlori de 105, bicarb 26, BUN 21, creatinine 1.01, glucose 137, magnesium 1.9. Impression: 1.Sepsis, organism methicillin-resistant Staphylococcus aureus. 2.Infected decubitus ulcer. 3.Urinary tract infection. 4.Volume depletion. 5.Anemia. 6.Ileus. 7.Coronary artery disease. 8.Paroxysmal atrial fibrillation. Plan: Patient is currently on Eliquis and this was started when Xarelto was discontinued several day s ago when patient had acute kidney injury. Now, the patient's renal function has normalized, so we will discontinue Eliquis and put patient back on Xarelto 20 mg daily dose. Repeat abdominal x-ray wi ll be done today. Patient remains n.p.o. because of ileus. Once ileus improves, we can start the pa tient on clear liquid diet and then advance it as he tolerates. Continue vancomycin and meropenem. Unfortunately, patient is not responding well to antibiotic treatment and condition is deteriorating at least in last 2-3 days. I did call the patient's daughter and talked to her in detail this patricia goncalves and informed her about this and she has seen the same thing. In last 2 days, the patient's conditi on is deteriorating. Updates were given to her and the family is willing to stop treatment and start hospice care when we make that recommendation and I informed her that I would like to see how he clayton s over a period of next 2-3 days, which is over this weekend and continue current medical management by Friday or Friday of next week. We should be making decision depending on his condition and progr ess over the next 2-3 days and daughter understands and agrees with that. Patient's advance directiv e is do not resuscitate. SANTIAGO/MODL Voice ID: [id number] Report ID: [id number]
[2018-11-20] MEDS: ATORVASTATIN 40 MG TAB PO SCH (21:38)
[2018-11-21] MEDS: ALBUTEROL 2.5 MG/3 ML NEB SOL NEB SCH ×4 (01:25→20:30)
[2018-11-21 05:41] LABS: Potassium 3.3 mmol/L (3.5-5.1)
[2018-11-21] MEDS: INSULIN -REGULAR HUMAN 50 UNIT/0.5 ML ML SQ SCH ×4 (07:30→21:23)
[2018-11-21] MEDS: D5W 1,000 ML IV SCH ×2 (07:43→18:00)
[2018-11-21] MEDS: KCL 20 MEQ/100 mL IVPB 20 MEQ/100 ML BAG IV SCH ×4 (07:43→21:20)
[2018-11-21] MEDS: ENSURE HIGH PROTEIN 237 ML CAN PO SCH ×2 (09:00→21:00)
[2018-11-21] MEDS: PROMOD 30 ML DOSE PO SCH ×2 (09:00→21:00)
[2018-11-21] MEDS: RIVASTIGMINE TOP SCH (09:00)
[2018-11-21] MEDS: DOCUSATE NA/SENNA CONC 1 TAB PO SCH ×2 (09:00→21:21)
[2018-11-21] MEDS: MULTIVITAMIN TAB PO SCH (09:00)
[2018-11-21] MEDS: VITAMIN D 1000 UNIT TAB PO SCH (09:00)
[2018-11-21] MEDS: Meropenem 1,000 MG in NA CHLORIDE 0.9% 100 ML IV SCH ×2 (09:34→21:20)
[2018-11-21] MEDS: INSULIN GLARGINE 100 UNITS/ML SQ SCH (09:35)
[2018-11-21] MEDS: LACTOBACILLUS/ACIDOPHILUS TAB PO SCH (09:36)
[2018-11-21] MEDS: RANITIDINE 150 MG TABLET PO SCH (09:36)
[2018-11-21] MEDS: METOPROLOL XL 25 MG TAB PO SCH ×2 (09:36→21:21)
[2018-11-21] MEDS: SOLIFENACIN SUCCIN 5 MG TAB PO SCH (09:37)
[2018-11-21] MEDS: OCUVITE (VIT A,C & E/LUTEIN/MINERAL) TABLET PO SCH (09:37)
[2018-11-21] MEDS: COLLAGENASE 30 GM OINTMENT TOP SCH (09:38)
--- NOTE | 2018-11-21 11:40 | P.PN ---
Date of Service: 11/21/18 Subjective: Patient seen and examined at bedside with RN this morning. Case discussed with primary care provider. I am covering for primary care provider this weekend. Patient this morning doing well per family member. Overnight no complaints to offer Objective: Vital Signs: Reviewed. HEENT: Unremarkable. Lungs: Bilateral equal entry. Shallow breathing. Heart: Sounds normal. Regular rate and rhythm Abdomen: Soft. Bowel sounds slightly hypoactive. Abdominal distention noted today Extremities: No leg edema. Skin: Patient with decubitus ulcer currently dressed Laboratory Data: CBC is pending at this time. Impression: 1.Sepsis, organism methicillin-resistant Staphylococcus aureus. -currently on IV vancomycin and meropenem -white count is pending at this time -will follow up with white count at this time. Family very much aware of patient's condition 2.Infected decubitus ulcer. -wound care and IV antibiotics at this time 3.Urinary tract infection. -currently on IV antibiotics 4.Volume depletion. -on IV fluids at this time. Will continue that here in the hospital 5.Anemia. -stable at this time 6.Ileus. -this morning patient does have a distended abdomen -will repeat an abdominal x-ray at this time -continue NPO status until ileus is resolved 7.Coronary artery disease. -stable 8.Paroxysmal atrial fibrillation. -restarted back on Xarelto now 20 mg daily Plan: Pending clinical improvement at this time. Per the primary care provider In last 2 days, the patient's condition is deteriorating. Updates were given to her and the family is willing to stop treatment and start hospice care when we make that recommendation we would would like to see how he does over the weekend. We should be making decision depending on his condition over the next 2-3 days and daughter understands and agrees with that. Patient's advance directive is do not resuscitate.
[2018-11-21 12:06] LABS: Absolute Lymphocytes (CBC) 1.1 K/uL (0.7-4.9); Basophils % 0.5 % (0-1.3); Hematocrit 27.4 % (39.6-49.0); MPV 8.9 fL (7.6-11.3); RBC Red Blood Cell Count 3.11 M/uL (4.33-5.43)
--- NOTE | 2018-11-21 12:42 | RAD REPORT ---
EXAM DESCRIPTION: RAD - Abdomen 1 View (KUB) - 11/21/2018 12:17 pm CLINICAL HISTORY: Abdomen pain. FINDINGS: A portion of colon within the central abdomen measures 9.5 centimeters. Probably represent s sigmoid. A mechanical obstruction is not suspected. Air is present throughout mildly dilated small bowel. Air and contrast is present within remainder of the colon which is not dilated. These findings presumably representing an ileus
[2018-11-21] MEDS: RIVAROXABAN 20 MG TABLET PO SCH (17:25)
[2018-11-21] MEDS ORDERED: COLLAGENASE 30 GM OINTMENT TOP SCH (21:00)
[2018-11-21] MEDS: ATORVASTATIN 40 MG TAB PO SCH (21:21)
[2018-11-22] MEDS: ALBUTEROL 2.5 MG/3 ML NEB SOL NEB SCH ×4 (01:55→19:35)
[2018-11-22] MEDS: D5W 1,000 ML IV SCH ×2 (05:18→14:00)
[2018-11-22 05:25] LABS: Potassium 3.3 mmol/L (3.5-5.1)
[2018-11-22] MEDS: INSULIN -REGULAR HUMAN 50 UNIT/0.5 ML ML SQ SCH ×4 (07:30→21:00)
[2018-11-22] MEDS: ENSURE HIGH PROTEIN 237 ML CAN PO SCH ×2 (07:50→21:00)
[2018-11-22] MEDS: PROMOD 30 ML DOSE PO SCH ×2 (07:50→21:00)
[2018-11-22] MEDS: LACTOBACILLUS/ACIDOPHILUS TAB PO SCH (07:50)
[2018-11-22] MEDS: OCUVITE (VIT A,C & E/LUTEIN/MINERAL) TABLET PO SCH (07:50)
[2018-11-22] MEDS: MULTIVITAMIN TAB PO SCH (07:50)
[2018-11-22] MEDS: DOCUSATE NA/SENNA CONC 1 TAB PO SCH ×2 (07:51→21:48)
[2018-11-22] MEDS: RANITIDINE 150 MG TABLET PO SCH (07:51)
[2018-11-22] MEDS: SOLIFENACIN SUCCIN 5 MG TAB PO SCH (07:51)
[2018-11-22] MEDS: VITAMIN D 1000 UNIT TAB PO SCH (07:51)
[2018-11-22] MEDS: KCL 20 MEQ/100 mL IVPB 20 MEQ/100 ML BAG IV SCH ×2 (08:06→10:24)
[2018-11-22] MEDS: Meropenem 1,000 MG in NA CHLORIDE 0.9% 100 ML IV SCH ×2 (08:06→20:03)
[2018-11-22] MEDS: METOPROLOL XL 25 MG TAB PO SCH ×2 (08:06→21:48)
[2018-11-22] MEDS: INSULIN GLARGINE 100 UNITS/ML SQ SCH (08:07)
[2018-11-22] MEDS: RIVASTIGMINE TOP SCH (08:07)
[2018-11-22] MEDS ORDERED: VANCOMYCIN 2 GM in NA CHLORIDE 0.9% 500 ML IVPB SCH (09:00)
--- NOTE | 2018-11-22 12:13 | P.PN ---
Date of Service: 11/22/18 Subjective: Patient seen and examined at bedside with RN this morning. Case discussed with primary care provider. I am covering for primary care provider this weekend. Patient this morning doing well per family member. Overnight no complaints to offer Objective: Vital Signs: Reviewed. HEENT: Unremarkable. Lungs: Bilateral equal entry. Shallow breathing. Heart: Sounds normal. Regular rate and rhythm Abdomen: Soft. Bowel sounds slightly hypoactive. Abdominal distention noted today Extremities: No leg edema. Skin: Patient with decubitus ulcer currently dressed Laboratory Data: Reviewed Impression: 1.Sepsis, organism methicillin-resistant Staphylococcus aureus. -currently on IV vancomycin and meropenem -white count is pending at this time -will follow up with white count at this time. Family very much aware of patient's condition 2.Infected decubitus ulcer. -wound care and IV antibiotics at this time 3.Urinary tract infection. -currently on IV antibiotics 4.Volume depletion. -on IV fluids at this time. Will continue that here in the hospital 5.Anemia. -stable at this time 6.Ileus. -this morning patient does have a distended abdomen -will repeat an abdominal x-ray at this time -continue NPO status until ileus is resolved 7.Coronary artery disease. -stable 8.Paroxysmal atrial fibrillation. -restarted back on Xarelto now 20 mg daily Plan: Pending clinical improvement at this time. Updates were given to her and the family is willing to stop treatment and start hospice care when we make that recommendation. Will monitor for next 2-3 days for improvement. Daughter understands and agrees with that. Patient's advance directive is do not resuscitate.
[2018-11-22] MEDS: RIVAROXABAN 20 MG TABLET PO SCH (16:58)
[2018-11-22] MEDS ORDERED: KCL 20 MEQ/100 mL IVPB 20 MEQ/100 ML BAG IV SCH (20:00)
[2018-11-22] MEDS: COLLAGENASE 30 GM OINTMENT TOP SCH (21:00)
[2018-11-22] MEDS: ATORVASTATIN 40 MG TAB PO SCH (21:48)
[2018-11-23] MEDS: ALBUTEROL 2.5 MG/3 ML NEB SOL NEB SCH ×4 (02:25→20:00)
[2018-11-23] MEDS: D5W 1,000 ML IV SCH ×2 (04:51→10:12)
[2018-11-23 05:24] LABS: Potassium 3.5 mmol/L (3.5-5.1)
[2018-11-23] MEDS: INSULIN -REGULAR HUMAN 50 UNIT/0.5 ML ML SQ SCH ×4 (07:30→21:18)
--- NOTE | 2018-11-23 07:35 | RAD REPORT ---
EXAM DESCRIPTION: RAD - Abdomen 1 View (KUB) - 11/23/2018 6:39 am CLINICAL HISTORY: Ileus, abdominal pain COMPARISON: KUB November 21 FINDINGS: Motion limits the examination. There has been some further antegrade movement of contrast within the colon. Sigmoid colon has decreased in prominence. Air is present in multiple nondilated sm all bowel loops generally appearing improved from 2 days earlier. Findings continue to favor ileus. M echanical obstruction is not likely. There is no free air or pneumatosis. No extravasation of contras t. No suspicious calcifications. Bony degenerative change present. 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 IMPRESSION: Improvement in the bowel pattern since November 21. Findings favor slowly resolving ileus . No free air, extravasation of contrast or other emergent finding.
[2018-11-23] MEDS ORDERED: KCL 20 MEQ/100 mL IVPB 20 MEQ/100 ML BAG IV SCH ×2 (07:45→19:00)
[2018-11-23] MEDS: RIVASTIGMINE TOP SCH (09:00)
[2018-11-23] MEDS: RANITIDINE 150 MG TABLET PO SCH (09:00)
[2018-11-23] MEDS: PROMOD 30 ML DOSE PO SCH ×2 (09:00→21:19)
[2018-11-23] MEDS: OCUVITE (VIT A,C & E/LUTEIN/MINERAL) TABLET PO SCH (10:06)
[2018-11-23] MEDS: SOLIFENACIN SUCCIN 5 MG TAB PO SCH (10:06)
[2018-11-23] MEDS: VITAMIN D 1000 UNIT TAB PO SCH (10:06)
[2018-11-23] MEDS: DOCUSATE NA/SENNA CONC 1 TAB PO SCH ×2 (10:06→21:14)
[2018-11-23] MEDS: METOPROLOL XL 25 MG TAB PO SCH ×2 (10:06→21:13)
[2018-11-23] MEDS: Meropenem 1,000 MG in NA CHLORIDE 0.9% 100 ML IV SCH ×2 (10:07→20:07)
[2018-11-23] MEDS: ENSURE HIGH PROTEIN 237 ML CAN PO SCH ×2 (10:08→21:11)
[2018-11-23] MEDS: INSULIN GLARGINE 100 UNITS/ML SQ SCH (10:08)
[2018-11-23] MEDS: MULTIVITAMIN TAB PO SCH (10:12)
[2018-11-23] MEDS: LACTOBACILLUS/ACIDOPHILUS TAB PO SCH (10:13)
--- NOTE | 2018-11-23 11:34 | PN ---
Date of Progress Note: 11/23/2018 Subjective: Patient was seen this morning for followup. No new complaints or problems reported by the patient, lying in bed. Denied any complaints, abdominal distention that was present last week has resolved. Abdomen is flat. Denies any pain, nausea, vomiting. Objective: Vital Signs: Reviewed. HEENT: Examination unremarkable. Lungs: Clear to auscultation. Heart: Sounds normal. Abdomen: Soft. Bowel sounds normal. No guarding, rigidity, tenderness, or distention. Extremities: No leg edema. Laboratory Data: Last white count from 11/21/2018 was 12.1, hemoglobin 9.2, platelets 363. This morning, sodium 140, potassium 3.5, chloride 108, bicarb 24 , BUN 27, creatinine 1.22, glucose 139. Impression: 1. Ileus. 2. Sepsis, organism Methicillin-resistant Staphylococcus aureus. 3. Infected decubitus ulcer. 4. Anemia. 5. Paroxysmal atrial fibrillation. 6. Coronary artery disease. Plan: We will go ahead and continue current empiric antibiotic, which is meropenem and culture specific antibiotic which is vancomycin. Abdominal x-ray was ordered to be done today. Depending on that result, we will decide about starting patient on diet. Overall, his abdomen appears better than last week on and Friday, and we will repeat blood work tomorrow. Hopefully, our plan is to discharge him over next day or 2 days and upon discharge the patient will be admitted to hospice care. Family to work with social service about placement as far as retirement is concerned because patient will be going to one of the correction facility in the area. SANTIAGO/JENNIFER Voice ID: [id number] Report ID: [id number] [id number]
--- NOTE | 2018-11-23 13:43 | PN ---
Date of Progress Note: 11/23/2018 Subjective: Patient was seen this morning for followup. No new complaints or problems reported by the patient, lying in bed. Denied any complaints, abdominal distention that was present last week has resolved. Abdomen is flat. Denies any pain, nausea, vomiting. Objective: Vital Signs: Reviewed. HEENT: Examination unremarkable. Lungs: Clear to auscultation. Heart: Sounds normal. Abdomen: Soft. Bowel sounds normal. No guarding, rigidity, tenderness, or distention. Extremities: No leg edema. Laboratory Data: Last white count from 11/21/2018 was 12.1, hemoglobin 9.2, platelets 363. This morning, sodium 140, potassium 3.5, chloride 108, bicarb 24 , BUN 27, creatinine 1.22, glucose 139. Impression: 1. Ileus. 2. Sepsis, organism methicillin-resistant Staphylococcus aureus. 3. Infected decubitus ulcer. 4. Anemia. 5. Paroxysmal atrial fibrillation. 6. Coronary artery disease. Plan: We will go ahead and continue current empiric antibiotic, which is meropenem and culture specific antibiotic which is vancomycin. Abdominal x-ray was ordered to be done today. Depending on that result, we will decide about starting patient on diet. Overall, his abdomen appears better than last week on and Friday, and we will repeat blood work tomorrow. Hopefully, our plan is to discharge him over next day or 2 days and upon discharge the patient will be admitted to hospice care. Family to work with social service about placement as far as detention is concerned because patient will be going to one of the [facility] facility in the area. SANTIAGO/JENNIFER Voice ID: [id number] Report ID: [id number] MTDD
[2018-11-23] MEDS: RIVAROXABAN 20 MG TABLET PO SCH (17:14)
[2018-11-23] MEDS: COLLAGENASE 30 GM OINTMENT TOP SCH (20:07)
[2018-11-23] MEDS ORDERED: VANCOMYCIN 2 GM in NA CHLORIDE 0.9% 500 ML IVPB SCH (21:00)
[2018-11-23] MEDS: ATORVASTATIN 40 MG TAB PO SCH (21:13)
[2018-11-24] MEDS: ALBUTEROL 2.5 MG/3 ML NEB SOL NEB SCH ×4 (02:00→20:00)
[2018-11-24 05:01] LABS: Potassium 3.5 mmol/L (3.5-5.1)
[2018-11-24] MEDS ORDERED: KCL 20 MEQ/100 mL IVPB 20 MEQ/100 ML BAG IV SCH (06:00)
[2018-11-24] MEDS: D5W 1,000 ML IV SCH (06:10)
[2018-11-24] MEDS: INSULIN -REGULAR HUMAN 50 UNIT/0.5 ML ML SQ SCH ×4 (07:30→21:00)
[2018-11-24] MEDS: RIVASTIGMINE TOP SCH (09:00)
[2018-11-24] MEDS: PROMOD 30 ML DOSE PO SCH ×2 (09:00→21:24)
[2018-11-24] MEDS: ENSURE HIGH PROTEIN 237 ML CAN PO SCH ×2 (09:00→21:24)
[2018-11-24] MEDS: DOCUSATE NA/SENNA CONC 1 TAB PO SCH ×2 (09:11→21:24)
[2018-11-24] MEDS: METOPROLOL XL 25 MG TAB PO SCH ×2 (09:13→21:23)
[2018-11-24] MEDS: RANITIDINE 150 MG TABLET PO SCH (09:13)
[2018-11-24] MEDS: Meropenem 1,000 MG in NA CHLORIDE 0.9% 100 ML IV SCH ×2 (09:14→21:24)
[2018-11-24] MEDS: INSULIN GLARGINE 100 UNITS/ML SQ SCH (09:14)
[2018-11-24] MEDS: COLLAGENASE 30 GM OINTMENT TOP SCH (21:24)
--- NOTE | 2018-11-25 01:08 | PN ---
Date of Progress Note: 11/24/2018 Subjective: Patient was seen this morning for followup. No new complaints or problems reported by jossue merritt. He was lying in bed. He was not quite as awake and alert and responsive as yesterday. Natan ruffin was present with him at bedside. Objective: Vital Signs: Reviewed. HEENT: Unremarkable. Lungs: Clear to auscultation. Heart: Sounds normal. Abdomen: Soft. Bowel sounds normal. No guarding, rigidity, tenderness, distention, but patient was noted to have distended bladder with some discomfort in the suprapubic region and dullness on percus ariel and palpation of suprapubic region. Extremities: No leg edema. Impression: 1.Urinary retention. 2.Infected decubitus ulcer. 3.Sepsis, organism methicillin-resistant Staphylococcus aureus. 4.Paroxysmal atrial fibrillation. 5.Volume depletion. 6.Anemia. 7.Urinary tract infection. Plan: Patient's blood work from this morning; BUN is 32, creatinine 1.42, and that has gone up evon red to prior blood test results. His ileus problem has resolved now and because of the urinary reten tion problem, I asked nurse to do bladder scan, which showed significant amount of urinary retention and patient was not able to void after this bladder scan, so we ended up putting Robertson catheter back in. I did have a long discussion with patient's daughter last night and this morning and she is work ing with social media marketing specialist to try to find out placement. At this point, patient is ready for discharge f [facility] to go to any facility that would take him on hospice care. Patient's family that is pat harkins's daughter is requesting comfort care measures only and other nonessential medication to be disc ontinued and has concern about Xarelto because if we continue Xarelto and renal function deteriorates any further, then it will increase risk of bleeding. So, we have 2 options, one option is to change to another medication like Eliquis and other option is to discontinue Xarelto to not give any antico agulation medication, but that means increased risk of blood clot, stroke, etc. and that may actually cause deterioration or and patient's daughter understands and she is agreeable to stop known e ssential medication including Xarelto. So with that, we will discontinue atorvastatin, vitamin D3, p robiotics, multivitamin, Xarelto, VESIcare, and Ocuvite. Overall, prognosis is very poor. We will c ontinue current antibiotics while in the hospital, but upon discharge from the hospital, he will no l onger need any antibiotics and will be ready for discharge as soon as arrangements gets completed by Social Service for patient to go to any facility with hospice care, so [facility] as soon as arrangements get completed. SANTIAGO/MODL Voice ID: [id number] Report ID: [id number]
[2018-11-25] MEDS: ALBUTEROL 2.5 MG/3 ML NEB SOL NEB SCH ×4 (02:00→20:00)
[2018-11-25] MEDS: D5W 1,000 ML IV SCH (05:58)
[2018-11-25] MEDS: RIVASTIGMINE TOP SCH (09:00)
[2018-11-25] MEDS: INSULIN GLARGINE 100 UNITS/ML SQ SCH (09:57)
[2018-11-25] MEDS: Meropenem 1,000 MG in NA CHLORIDE 0.9% 100 ML IV SCH ×2 (09:57→20:45)
[2018-11-25] MEDS: INSULIN -REGULAR HUMAN 50 UNIT/0.5 ML ML SQ SCH ×4 (09:57→20:48)
[2018-11-25] MEDS: DOCUSATE NA/SENNA CONC 1 TAB PO SCH ×2 (09:58→21:00)
[2018-11-25] MEDS: METOPROLOL XL 25 MG TAB PO SCH ×2 (09:59→20:44)
[2018-11-25] MEDS: RANITIDINE 150 MG TABLET PO SCH (09:59)
[2018-11-25] MEDS: ENSURE HIGH PROTEIN 237 ML CAN PO SCH ×2 (10:00→20:46)
[2018-11-25] MEDS: PROMOD 30 ML DOSE PO SCH ×2 (10:00→20:45)
[2018-11-25] MEDS: COLLAGENASE 30 GM OINTMENT TOP SCH (20:46)
[2018-11-25] MEDS ORDERED: VANCOMYCIN 2 GM in NA CHLORIDE 0.9% 500 ML IVPB SCH (22:00)
[2018-11-25] MEDS: VANCOMYCIN 1.75 GM in NA CHLORIDE 0.9% 500 ML IVPB SCH ×2 (22:00→22:54)
--- NOTE | 2018-11-26 01:27 | PN ---
Date of Progress Note: 11/25/2018 Subjective: Patient was seen this morning for followup. He was lying in bed. This morning, he was more awake alert compared to yesterday. Denied any complaints. Objective: Vital Signs: Reviewed. HEENT: Unremarkable. Lungs: Clear to auscultation. Heart: Sounds normal. Abdomen: Soft. Bowel sounds normal. No guarding, rigidity, tenderness, distention. Extremities: N o leg edema. Impression: 1.Sepsis, organism methicillin-resistant Staphylococcus aureus. 2.Coronary artery disease. 3.Paroxysmal atrial fibrillation. 4.Urinary tract infection. 5.Ileus. 6.Urinary retention. Plan: We will continue to keep the Robertson catheter in for urinary retention problem. Patient will co ntinue current antibiotic. We waiting for disposition and discharge arrangements to be completed by Social Service for patient to go to appropriate facility where he can be admitted with hospice care. As soon as arrangements gets completed, we will discharge him. Overall, prognosis is poor. SANTIAGO/MODL Voice ID: [id number] Report ID: [id number]
[2018-11-26] MEDS: ALBUTEROL 2.5 MG/3 ML NEB SOL NEB SCH ×2 (02:00→08:00)
[2018-11-26] MEDS: D5W 1,000 ML IV SCH (03:41)
[2018-11-26] MEDS: INSULIN -REGULAR HUMAN 50 UNIT/0.5 ML ML SQ SCH (07:30)
[2018-11-26] MEDS: DOCUSATE NA/SENNA CONC 1 TAB PO SCH (09:00)
[2018-11-26] MEDS: RIVASTIGMINE TOP SCH (09:00)
[2018-11-26] MEDS: PROMOD 30 ML DOSE PO SCH (09:00)
[2018-11-26 09:41] VITALS: O2SAT 94
[2018-11-26] MEDS: INSULIN GLARGINE 100 UNITS/ML SQ SCH (11:12)
[2018-11-26] MEDS: ENSURE HIGH PROTEIN 237 ML CAN PO SCH (11:12)
[2018-11-26] MEDS: RANITIDINE 150 MG TABLET PO SCH (11:13)
[2018-11-26] MEDS: Meropenem 1,000 MG in NA CHLORIDE 0.9% 100 ML IV SCH (11:13)
[2018-11-26] MEDS: METOPROLOL XL 25 MG TAB PO SCH (11:14)
[2018-11-26 13:10] VITALS: BP 125/56; TEMP 98
[2018-11-26] MEDS ORDERED: VANCOMYCIN 1.25 GM in NA CHLORIDE 0.9% 250 ML IVPB SCH (17:00)
--- NOTE | 2018-11-27 06:08 | DS ---
Date of Discharge: 11/26/2018 Disposition: Discharged to go to [facility] with hospice care. Physical Examination: HEENT: Unremarkable. Lungs: Clear to auscultation. Heart: Sounds normal. Abdomen: Soft. Bowel sounds normal. No guarding, rigidity, tenderness, or distention. Extremities: No leg edema. Laboratory Data: Labs done during this hospitalization upon admission: White count 14.1, hemoglobin 11.4, platelets 206 and this was on 11/07/2018. Highest white count was on 11/13/2018, which was 16 ,000 with hemoglobin 10.9, platelets 265. Last white count on 11/21/2018 was 12.1, hemoglobin 9.2, p latelets 366. Initial chemistry on 11/07/2018, BUN 44, creatinine 3.16. Liver function tests unrema rkable. Last chemistry from 11/24/2018, sodium 140, potassium 3.5, chloride 110, bicarb 22, BUN 32, creatinine 1.42, glucose 129. His blood culture from admission was positive for MRSA. Wound culture grew MRSA as well as Enterococcus faecalis. Right heel culture grew MRSA and pseudomonas and repeat blood culture from 11/17/2018 still grew MRSA. Final Diagnoses: 1.Sepsis, organism methicillin-resistant Staphylococcus aureus. 2.Infected decubitus ulcer, right heel and sacrococcygeal region. 3.Urinary tract infection. 4.Anemia, unspecified. 5.Coronary artery disease. 6.Chronic systolic congestive heart failure. 7.Acute kidney injury. 8.Type 2 diabetes mellitus. 9.Hypertension. 10.Hyperlipidemia. 11.Paroxysmal atrial fibrillation. 12.Hypokalemia. 13.Alzheimer disease. 14.Osteoarthritis, multiple sites. 15.Prostate cancer. 16.Urinary retention. Discharge Medications And Instructions: 1.Patient to be admitted to hospice care using [facility] agency upon discharge to [facility] e agency to take over patient's care. 2.Wound care management as per Dr. Lopez. 3.Isolation for MRSA and decubitus ulcers. 4.Change position every 2 hours. 5.Robertson catheter care. Hospital Course: An 88-year-old male patient admitted to the hospital under hospitalist service and I took over his care as of 11/10/2018. Please see dictated H and P for more information. Patient wa s admitted and treated for infected decubitus ulcer and MRSA septicemia. He was on IV vancomycin fro m the beginning and gram-negative coverage. Once we got MRSA and blood culture result, we discontinu ed gram-negative coverage and continued his vancomycin. He was improving, and all of a sudden, white count went up. At that time, we started him on empiric gram-negative coverage with Levaquin and he started showing improvement in his overall condition along with improvement in WBC count. After that improvement, his white count started going up while he was continuing to receive Levaquin and vancom ycin to be changed from Levaquin to IV meropenem and vancomycin was continued. In spite of taking IV vancomycin about 10 days after he was admitted to the hospital on vancomycin therapy, his repeat blo od culture had grown MRSA. He did require some IV Lasix for few doses because of his chronic systoli c congestive heart failure problem and he had a Robertson catheter, which we kept in for several days. A fter we removed Robertson catheter, within less than 24 hours, we had to put it back in because of urinar y retention and unable to void. Plan is to now leave the catheter in. Patient has poor appetite. Linda Lopez was consulted from General Surgery and he did perform debridement procedure. His overall condition is declining. He has not been getting out of bed. He has remained in bed and overall pro gnosis is poor. I had a long discussion with the patient's daughter and the patient about the [facility] hospitalization. They were thinking about putting him on hospice care prior to this hospital admis ariel, and after this hospitalization, they definitely would like for him to get on hospice care upon discharge. The patient is not a candidate for in-hospital hospice care so we did consult Social Serv ice to assist with discharge planning and after looking into multiple different options regarding dis position, finally arrangements were completed for patient to go back to [facility] and he will remain on isolation for MRSA. His overall prognosis is poor and I expect rapid downhi ll decline and family understands that as well. SANTIAGO/MODL Voice ID: [id number] Report ID: [id number]
== END 2018-11-26 12:25 | disposition hospice, home (50) | DRG 853 ==
LOC: ER 11:55 → ERHOLD 14:20 → 2ND 15:41
PROVIDERS: ADMIT Hospitalist; ATTEND Internal Medicine
PROC: 02HV33Z Insertion of Infusion Device into Superior Vena Cava, Percutaneous Approach (ICD-10-PCS; 2018-11-10)
PROC: 0JBQ0ZZ Excision of Right Foot Subcutaneous Tissue and Fascia, Open Approach (ICD-10-PCS; 2018-11-11)
PROC: 0JB70ZZ Excision of Back Subcutaneous Tissue and Fascia, Open Approach (ICD-10-PCS; 2018-11-11)
PROC: 0JBR0ZZ Excision of Left Foot Subcutaneous Tissue and Fascia, Open Approach (ICD-10-PCS; principal; 2018-11-11 13:00)
DX: A41.02 Sepsis due to Methicillin resistant Staphylococcus aureus (principal); L89.153 Pressure ulcer of sacral region, stage 3; L89.523 Pressure ulcer of left ankle, stage 3; N30.00 Acute cystitis without hematuria; G93.40 Encephalopathy, unspecified; I13.0 Hypertensive heart and chronic kidney disease with heart failure and stage 1 through stage 4 chronic kidney disease, or unspecified chronic kidney disease; I50.22 Chronic systolic (congestive) heart failure; N17.9 Acute kidney failure, unspecified; K56.7 Ileus, unspecified; L89.620 Pressure ulcer of left heel, unstageable; L89.610 Pressure ulcer of right heel, unstageable; B95.2 Enterococcus as the cause of diseases classified elsewhere; G30.1 Alzheimer's disease with late onset; F02.80 Dementia in other diseases classified elsewhere, unspecified severity, without behavioral disturbance, psychotic disturbance, mood disturbance, and anxiety; N18.3 Chronic kidney disease, stage 3 (moderate); I48.0 Paroxysmal atrial fibrillation; E11.22 Type 2 diabetes mellitus with diabetic chronic kidney disease; Z66 Do not resuscitate; D64.9 Anemia, unspecified; R33.9 Retention of urine, unspecified; E86.9 Volume depletion, unspecified; E83.42 Hypomagnesemia; E87.6 Hypokalemia; I25.10 Atherosclerotic heart disease of native coronary artery without angina pectoris; M15.9 Polyosteoarthritis, unspecified; K21.9 Gastro-esophageal reflux disease without esophagitis; E78.5 Hyperlipidemia, unspecified; M25.551 Pain in right hip; Z91.81 History of falling; Z74.01 Bed confinement status; I25.2 Old myocardial infarction; Z95.1 Presence of aortocoronary bypass graft; Z95.0 Presence of cardiac pacemaker; Z87.891 Personal history of nicotine dependence; Z88.5 Allergy status to narcotic agent
CPT/HCPCS: 36415; 51702; 71045; 74018; 74230; 76770; 80048; 80053; 80076; 80202; 81001; 81003; 81015; 82550; 82553; 82565; 82962; 83605; 83690; 83735; 84100; 84132; 84145; 84484; 85025; 85610; 85730; 87040; 87070; 87075; 87077; 87086; 87088; 87186; 87205; 88304; 92526; 92610; 92611; 93005; 94640; 94760; 96365; 96366; 99285; J1940; J2175; J2250; J2370; J2704; J3010; J3475; J3590; J7030